=== PATIENT | female | born 2005 | race Caucasian/White ===

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

== ENCOUNTER 2024-01-26 11:36 | Emergency (ER) | payer OTHER, SELFPAY ==
[2024-01-26 11:37] VITALS: BP 118/80; PULSE 100; RESP 16; TEMP 36.4; O2SAT 97
--- NOTE | 2024-01-26 13:00 | PC.NURSE ---
PT WAS SEEN BY STAFF MEMBER WALKING OUT OF THE DEPARTMENT PRIOR TO SEEING THE PROVIDER.
== END 2024-01-26 13:34 | disposition left against medical advice (07) ==
LOC: ANHED 13:30
PROVIDERS: PCP Nurse Practitioner Adult Health
DX: O36.8120 Decreased fetal movements, second trimester, not applicable or unspecified (principal); Z3A.18 18 weeks gestation of pregnancy
CPT/HCPCS: 99199

== ENCOUNTER 2024-02-09 14:04 | Observation (INO) | payer OTHER, SELFPAY ==
[2024-02-09] VITALS (7 sets, daily range): BP systolic 101–114; BP diastolic 59–75; PULSE 85–109; RESP 16; TEMP 36.5–36.6; O2SAT 99; BMI 22.1
[2024-02-09 14:29] LABS: Glucose Point of Care 197 mg/dl (65-105)
[2024-02-09] MEDS: ACETAMINOPHEN 500 MG TABLET 1000 MG PO (15:07)
--- NOTE | 2024-02-09 15:18 | OBADM ---
This patient, Grace Rose, admitted to the OB room OB Post 115 for observation. Patient/family oriented to hospital policies and general routines including ID bracelet, bed and alarms, visiting hours, pain management, procedures, bathroom and other care routines, personal items, smoking policy, room service/diet, and visiting hours. Patient/Family are encouraged to report perceived risks to care and to ask questions if they do not understand what they are told or what they should do. Pt. presents with reports of h/a X2 days and back pain that started at 1200 today. She states she has taken Tylenol 1000mg po at approx. 0800 with no relief. She is an IDDM since 2015 with an insulin pump and has had pump since 2020.
[2024-02-09 15:29] LABS: Appearance Urine Clear (Clear); Bilirubin Urine Negative (Negative); Blood Urine Negative (Negative); Color Urine Yellow (Yellow); Glucose Urine UA 3+ mg/dL (Negative); Ketones Urine Trace mg/dL (Negative); Leukocyte Esterase Ur Negative LEU/UL (Negative); Nitrate Urine Negative (Negative); Protein Urine Negative (Negative); pH Urine 7.5 (5.0-9.0)
--- NOTE | 2024-02-09 15:30 | PC.NURSE ---
1424--FHR 150's with doppler. Uterus soft and non-tender upon palpation, TOCO applied at this time.
[2024-02-09 15:48] LABS: Add Urine Microscopic? NO; Specific Grav Ur 1.037 (1.001-1.035)
--- NOTE | 2024-02-09 16:08 | PC.NURSE ---
1600--Upon speaking with pt., she verbalizes that she has been having headaches since she got and states that the DrSarah says they will probably be throughout her . She states that she was more concerned about the back pain and wanted to make sure it wasn't labor.
--- NOTE | 2024-02-09 16:13 | PC.NURSE ---
1608--Report to Dr. Heaton re: pt. feeling better and that she is ready to go home per pt. made aware of lab results, v.s., and uterine activity. Orders to DC home.
--- NOTE | 2024-02-14 11:54 | PM.OBTRLD ---
OB - Triage/Final Diagnosis Visit Information Comments/Additional reasons for admission: I have assessed the risk for this patient, Grace Rose, and determined that she would benefit from observation care. Evaluation Laboratory results: Laboratory Tests 02/09/24 02/09/24 14:21 15:01 POC Capillary Glucose 197 H Urine Color Yellow Urine Appearance Clear Urine pH 7.5 Ur Specific [place] 1.037 H Urine Protein Negative Urine Glucose (UA) 3+ H Urine Ketones Trace H Ur Blood (Man) Negative Urine Nitrate Negative Urine Bilirubin Negative Urine Urobilinogen 1.0 Leukocyte Esterase Rfl Negative Final Diagnosis (1) Headache: Code(s): R51.9 - Headache, unspecified Status: Acute
== END 2024-02-09 16:25 | disposition home or self-care (01) ==
PROVIDERS: Admitting Provider Obstetrics & Gynecology; Visit Provider Obstetrics & Gynecology
DX: O26.892 Other specified pregnancy related conditions, second trimester (principal); R51.9 Headache, unspecified; Z3A.20 20 weeks gestation of pregnancy
CPT/HCPCS: 81003; 82948; A9270; G0378; G0379

== ENCOUNTER 2024-03-03 07:00 | Observation (INO) | payer OTHER, SELFPAY ==
--- NOTE | ~2024-03-03 | US_ITS ---
US OB limited 03/03/2024 08:38 Indication: Placenta check. Vaginal bleeding. Procedure: High-resolution Limited obstetrical ultrasound Comparison: No prior studies for comparison. Findings: There is a single living intrauterine in breech presentation. heart rate 14 6 BPM. Placenta anterior measuring 3.4 cm to the cervix. Amniotic fluid volume is subjectively normal . The placenta is grossly normal, without suggestion of placenta abruption. However, ultrasound is n ot diagnostic of abruption since acute hemorrhage can be isoechoic to be placenta. Recommend clinica l correlation. Impression: 1: Single living intrauterine in breech presentation. No significant abnormality identified . Reviewed, dictated and finalized at location B. Impression: 1: Single living intrauterine in breech presentation. No significant abnormality identified.
[2024-03-03 07:24] VITALS: BP 119/71; PULSE 97
[2024-03-03 07:30] VITALS: BP 118/73; PULSE 93
[2024-03-03 07:45] VITALS: BP 117/79; PULSE 96
[2024-03-03 07:47] LABS: Glucose Point of Care 189 mg/dl (65-105)
[2024-03-03 08:00] VITALS: BP 109/70; PULSE 93
[2024-03-03 08:26] VITALS: BMI 22.6
--- NOTE | 2024-03-03 08:26 | LDADM ---
This patient, Grace Rose, was admitted to OB Post 116 on 03/03/24 at 07:00. Plans for labor, pain management and were discussed with patient. Patient/family oriented to hospital policies and general routines including ID bracelet, bed and alarms, visiting hours, pain management, procedures, bathroom and other care routines, personal items, smoking policy, room service/diet and guest tray routines, infant security routines, and visiting hours. Patient/Family are encouraged to report perceived risks to care and to ask questions if they do not understand what they are told or what they should do. See OBIX for further documentation. Pt. presents to OB via wheelchair from ED. She is , EGA 23.4 weeks, who presented to ED with abdominal pain. Upon arrival to OB she states she has been having vaginal bleeding since yesterday. She is seen in [facility] for high risk r/t IDDM with insulin pump, who told her to go to the office yesterday. Pt. states she could not get there due to transportation issues. She currently has no bleeding at this time, +FM. She states she vomited this a.m., but hasn't really eaten since Wednesday. She states that when she vomited, it scared her and that's when she decided to come in. EFM X2 applied, will monitor and check blood sugar.
[2024-03-03 08:29] LABS: Appearance Urine Clear (Clear); Bilirubin Urine Negative (Negative); Blood Urine Negative (Negative); Color Urine Yellow (Yellow); Glucose Urine UA 3+ mg/dL (Negative); Ketones Urine Trace mg/dL (Negative); Leukocyte Esterase Ur Negative LEU/UL (Negative); Nitrate Urine Negative (Negative); Protein Urine Negative (Negative); pH Urine 5.5 (5.0-9.0)
[2024-03-03 08:41] LABS: Specific Grav Ur 1.042 (1.001-1.035)
[2024-03-03 08:42] LABS: Add Urine Microscopic? NO
[2024-03-03 08:45] LABS: Amphetamine Screen Urine Negative (Negative); Barbiturate Screen Urine Negative (Negative); Benzodiazepines Screen Urine Negative (Negative); Cannabinoid Screen Urine Negative (Negative); Cocaine Screen Urine Negative (Negative); Methadone Screen Urine Negative (Negative); Opiate Screen Urine Negative (Negative); Phencyclidine Screen Urine Negative (Negative)
--- NOTE | 2024-03-07 12:28 | PM.OBTRLD ---
OB - Triage/Final Diagnosis Visit Information Comments/Additional reasons for admission: I have assessed the risk for this patient, Grace Rose, and determined that she would benefit from observation care. Evaluation Laboratory results: Laboratory Tests 03/03/24 03/03/24 07:39 08:16 POC Capillary Glucose 189 H Urine Color Yellow Urine Appearance Clear Urine pH 5.5 Ur Specific [place] 1.042 H Urine Protein Negative Urine Glucose (UA) 3+ H Urine Ketones Trace H Ur Blood (Man) Negative Urine Nitrate Negative Urine Bilirubin Negative Urine Urobilinogen 1.0 Ur Leukocyte Esterase Negative Urine Opiates Screen Negative Urine Methadone Screen Negative Ur Barbiturates Screen Negative Ur Phencyclidine Scrn Negative Ur Amphetamine Screen Negative U Benzodiazepines Scrn Negative Urine Cocaine Screen Negative U Cannabinoids Screen Negative Blood Type A Positive Antibody Screen Negative Final Diagnosis (1) Spotting affecting : Code(s): O26.859 - Spotting complicating , unspecified trimester Status: Acute
== END 2024-03-03 09:25 | disposition home or self-care (01) ==
PROVIDERS: Admitting Provider Obstetrics & Gynecology; Visit Provider Obstetrics & Gynecology
DX: O26.852 Spotting complicating pregnancy, second trimester (principal); Z3A.23 23 weeks gestation of pregnancy
CPT/HCPCS: 36415; 76815; 80307; 81001; 81003; 82948; 86850; 86900; 86901; G0378; G0379

== ENCOUNTER 2024-03-13 21:51 | Observation (INO) | payer OTHER, SELFPAY ==
--- NOTE | 2024-03-13 21:51 | OBADM ---
This patient, Grace Rose, admitted to the OB room OB Post 115 for observation. Patient/family oriented to hospital policies and general routines including ID bracelet, bed and alarms, visiting hours, pain management, procedures, bathroom and other care routines, personal items, smoking policy, room service/diet, and visiting hours. Patient/Family are encouraged to report perceived risks to care and to ask questions if they do not understand what they are told or what they should do.
[2024-03-13 22:15] VITALS: BMI 22.8
[2024-03-13 22:29] LABS: Appearance Urine Clear (Clear); Bilirubin Urine Negative (Negative); Blood Urine Negative (Negative); Color Urine Yellow (Yellow); Glucose Urine UA 3+ mg/dL (Negative); Ketones Urine Trace mg/dL (Negative); Leukocyte Esterase Ur Negative LEU/UL (Negative); Nitrate Urine Negative (Negative); Protein Urine Negative (Negative)
[2024-03-13 22:40] LABS: Add Urine Microscopic? NO
[2024-03-13 22:52] VITALS: BP 112/67; PULSE 83
[2024-03-13 23:10] LABS: Glucose Point of Care 263 mg/dl (65-105)
--- NOTE | 2024-03-14 11:38 | PM.OBTRLD ---
OB - Triage/Final Diagnosis Visit Information Reason for evaluation: threatened labor Comments/Additional reasons for admission: I have assessed the risk for this patient, Grace Rose, and determined that she would benefit from observation care. Evaluation Laboratory results: Laboratory Tests 03/13/24 03/13/24 22:22 23:05 POC Capillary Glucose 263 H Urine Color Yellow Urine Appearance Clear Urine pH 6.0 Ur Specific [place] 1.020 Urine Protein Negative Urine Glucose (UA) 3+ H Urine Ketones Trace H Ur Blood (Man) Negative Urine Nitrate Negative Urine Bilirubin Negative Urine Urobilinogen 1.0 Ur Leukocyte Esterase Negative Vital signs: Vital Signs - 24 hr 03/13/24 22:52 03/13/24 22:15 Pulse Rate 83 Blood Pressure 112/67 Oxygen Delivery Room Air
== END 2024-03-13 23:27 | disposition home or self-care (01) ==
PROVIDERS: Advanced Practice Midwife; Obstetrics & Gynecology Gynecology; Admitting Provider Obstetrics & Gynecology; Visit Provider Obstetrics & Gynecology
DX: O47.02 False labor before 37 completed weeks of gestation, second trimester (principal); Z3A.25 25 weeks gestation of pregnancy
CPT/HCPCS: 81003; 82948; 87086; 87088; G0378; G0379

== ENCOUNTER 2024-04-04 07:50 | Observation (INO) | payer OTHER, SELFPAY ==
[2024-04-04] VITALS (13 sets, daily range): BP systolic 114–125; BP diastolic 74–83; PULSE 87–107; BMI 23.1
[2024-04-04 08:41] LABS: Glucose Point of Care 271 mg/dl (65-105)
[2024-04-04] MEDS: INSULIN ASPART (*BKC) 100 UNITS/ML SUB-Q (08:41)
--- NOTE | 2024-04-04 08:53 | OBADM ---
This patient, Grace Rose, admitted to the OB room OB Post 115 for observation. Patient/family oriented to hospital policies and general routines including ID bracelet, bed and alarms, visiting hours, pain management, procedures, bathroom and other care routines, personal items, smoking policy, room service/diet, and visiting hours. Patient/Family are encouraged to report perceived risks to care and to ask questions if they do not understand what they are told or what they should do. Pt. presents as walk-in who states that she fell down 6 steps today at approx. 0700 this a.m. She states she hit her abdomen on one of the steps. She denies vaginal bleeding and states she has felt the baby move since the fall.
[2024-04-04 09:47] LABS: Glucose Point of Care 219 mg/dl (65-105)
[2024-04-04 10:48] LABS: Glucose Point of Care 190 mg/dl (65-105)
--- NOTE | 2024-04-18 12:29 | PM.OBTRLD ---
OB - Triage/Final Diagnosis Visit Information Comments/Additional reasons for admission: I have assessed the risk for this patient, Grace Rose, and determined that she would benefit from observation care. Evaluation Laboratory results: Laboratory Tests 04/04/24 04/04/24 04/04/24 08:11 09:42 10:44 POC Capillary Glucose 271 H 219 H 190 H Final Diagnosis (1) Fall: Code(s): W19.XXXA - Unspecified fall, initial encounter Status: Acute
== END 2024-04-04 11:05 | disposition home or self-care (01) ==
PROVIDERS: Admitting Provider Obstetrics & Gynecology; Visit Provider Obstetrics & Gynecology
DX: Z04.3 Encounter for examination and observation following other accident (principal); O24.414 Gestational diabetes mellitus in pregnancy, insulin controlled; Z3A.28 28 weeks gestation of pregnancy; W19.XXXA Unspecified fall, initial encounter
CPT/HCPCS: 82948; G0378; G0379; J1815

== ENCOUNTER 2024-04-17 11:46 | Observation (INO) | payer OTHER, SELFPAY ==
[2024-04-17 12:14] VITALS: BP 124/74; PULSE 87
[2024-04-17 12:30] VITALS: BP 120/81; PULSE 121; TEMP 37.1
[2024-04-17 12:37] LABS: Glucose Point of Care 172 mg/dl (65-105)
[2024-04-17 12:45] VITALS: BP 119/79; PULSE 102
[2024-04-17 12:48] VITALS: BMI 16.0
--- NOTE | 2024-04-17 12:48 | OBADM ---
This patient, Grace Rose, admitted to the OB room OB Post 116 for observation. Patient/family oriented to hospital policies and general routines including ID bracelet, bed and alarms, visiting hours, pain management, procedures, bathroom and other care routines, personal items, smoking policy, room service/diet, and visiting hours. Patient/Family are encouraged to report perceived risks to care and to ask questions if they do not understand what they are told or what they should do.
[2024-04-17 12:52] LABS: Appearance Urine Clear (Clear); Bacteria Urine 1+ /hpf; Bilirubin Urine Negative (Negative); Blood Urine Negative (Negative); Color Urine Yellow (Yellow); Glucose Urine UA 2+ mg/dL (Negative); Ketones Urine Trace mg/dL (Negative); Leukocyte Esterase Ur Trace LEU/UL (Negative); Nitrate Urine Negative (Negative); Non Pathogenic Casts 0-2; Protein Urine Negative (Negative); RBC Urine 0-2 /hpf (0-2); Specific Grav Ur 1.013 (1.001-1.035); Squamous Epithelial Cell Urine Moderate /hpf (Few); Urobilinogen Urine 0.2 mg/dL (<2.0)
[2024-04-17 12:55] LABS: Add Urine Microscopic? YES
[2024-04-17 13:00] VITALS: BP 117/78; PULSE 100
[2024-04-17 13:15] VITALS: BP 128/78; PULSE 90
[2024-04-17 13:16] VITALS: BP 128/78; PULSE 90
--- NOTE | 2024-05-09 07:24 | PM.OBTRLD ---
OB - Triage/Final Diagnosis Visit Information Comments/Additional reasons for admission: I have assessed the risk for this patient, Grace Rose, and determined that she would benefit from observation care. Evaluation Laboratory results: Laboratory Tests 04/17/24 04/17/24 12:31 12:42 POC Capillary Glucose 172 H Urine Color Yellow Urine Appearance Clear Urine pH 6.0 Ur Specific [place] 1.013 Urine Protein Negative Urine Glucose (UA) 2+ H Urine Ketones Trace H Ur Blood (Man) Negative Urine Nitrate Negative Urine Bilirubin Negative Urine Urobilinogen 0.2 Leukocyte Esterase Rfl Trace H Urine RBC 0-2 Urine WBC 6-10 H Ur Squamous Epith Cells Moderate Urine Bacteria 1+ H Urine Casts 0-2 Final Diagnosis (1) Vaginal bleeding during : Code(s): O46.90 - Antepartum hemorrhage, unspecified, unspecified trimester Status: Acute
== END 2024-04-17 13:35 | disposition home or self-care (01) ==
PROVIDERS: Admitting Provider Obstetrics & Gynecology; Visit Provider Obstetrics & Gynecology
DX: O46.90 Antepartum hemorrhage, unspecified, unspecified trimester (principal)
CPT/HCPCS: 81001; 82948; 87086; 87088; G0378; G0379

== ENCOUNTER 2024-05-04 06:01 | Observation (INO) | payer OTHER, SELFPAY ==
[2024-05-04] VITALS (7 sets, daily range): BP systolic 123–128; BP diastolic 81–90; PULSE 92–127; RESP 16; TEMP 37.7; BMI 23.6
--- NOTE | 2024-05-04 06:38 | OBADM ---
This patient, Grace Rose, admitted to the OB room 116 for observation. Patient/family oriented to hospital policies and general routines including ID bracelet, bed and alarms, visiting hours, pain management, procedures, bathroom and other care routines, personal items, smoking policy, room service/diet, and visiting hours. Patient/Family are encouraged to report perceived risks to care and to ask questions if they do not understand what they are told or what they should do.
[2024-05-04 07:14] LABS: Appearance Urine Cloudy (Clear); Bilirubin Urine Negative (Negative); Blood Urine Negative (Negative); Color Urine Yellow (Yellow); Glucose Urine UA 1+ mg/dL (Negative); Ketones Urine Negative (Negative); Leukocyte Esterase Ur 1+ LEU/UL (Negative); Nitrate Urine Negative (Negative); Protein Urine Negative (Negative); Specific Grav Ur 1.013 (1.001-1.035); Urobilinogen Urine 0.2 mg/dL (<2.0); pH Urine 6.5 (5.0-9.0)
[2024-05-04 07:15] LABS: Add Urine Microscopic? YES; Bacteria Urine 1+ /hpf; Non Pathogenic Casts 0-2; RBC Urine 0-2 /hpf (0-2); Squamous Epithelial Cell Urine Many /hpf (Few)
[2024-05-04] MEDS: NIFEdipine 10 MG CAPSULE PO (07:33)
[2024-05-04 07:50] LABS: OBXCEM ROM Plus Negative
[2024-05-04 07:56] LABS: Fetal Fibronectin Negative
--- NOTE | 2024-05-05 16:20 | PM.OBTRLD ---
OB - Triage/Final Diagnosis Visit Information Date of evaluation: 05/04/24 Reason for evaluation: threatened labor Comments/Additional reasons for admission: I have assessed the risk for this patient, Grace Rose, and determined that she would benefit from observation care. Evaluation Laboratory results: Laboratory Tests 05/04/24 05/04/24 05/04/24 06:56 06:58 07:21 Urine Color Yellow Urine Appearance Cloudy H Urine pH 6.5 Ur Specific [place] 1.013 Urine Protein Negative Urine Glucose (UA) 1+ H Urine Ketones Negative Ur Blood (Man) Negative Urine Nitrate Negative Urine Bilirubin Negative Urine Urobilinogen 0.2 Leukocyte Esterase Rfl 1+ H Urine RBC 0-2 Urine WBC 11-20 H Ur Squamous Epith Cells Many H Urine Bacteria 1+ H Urine Casts 0-2 Membranes Rupture Rom plus negative Membranes Rup Com Yes Fibronectin Negative
== END 2024-05-04 09:19 | disposition home or self-care (01) ==
PROVIDERS: Admitting Provider Obstetrics & Gynecology; Visit Provider Obstetrics & Gynecology
DX: O47.9 False labor, unspecified (principal)
CPT/HCPCS: 81001; 82731; 84112; 87086; 87088; A9270; G0378; G0379

== ENCOUNTER 2024-06-30 17:01 | Emergency (ER) | payer OTHER, SELFPAY ==
--- NOTE | ~2024-06-30 | CT_ITS ---
CT abdomen pelvis w con Ordering provider: Soraya Dwyer PA-C History: 19 years Female with . lower abd pain, swelling around scar . Comparison: None. Technique: CT abdomen and pelvis with IV and without oral contrast. Automated exposure control and it erative reconstruction technique were employed. The dose-length product was 189.62 mGy-cm. Findings: VISUALIZED LOWER CHEST: Normal. UPPER ABDOMINAL ORGANS: Liver: Normal. Gallbladder: Normal. Spleen: Normal. Stomach/duodenum: Normal. Pancreas: Normal. Adrenals: Normal. Kidneys: Stone is seen in the left kidney midpole. PELVIC ORGANS: The bladder is normal. Fluid is seen in the uterine cavity. Thickened wall of the te-moak teresa. No definite collection seen between the bladder and the uterus. BOWEL AND MESENTERY: Colon: No evidence of diverticulitis. The small bowel is seen in the right side of the abdomen with n o definite: Loops in the area which may indicate cecal abnormality. No obstruction is seen. Appendix is not well demonstrated. Small Bowel: Normal. No obstruction. Peritoneum/mesentery: No free air or free fluid. No mesenteric lymphadenopathy. RETROPERITONEUM: Normal aorta. The celiac artery is not demonstrated. No retroperitoneal lymphadenop athy. MUSCULOSKELETAL: Superficial soft tissues: Minimal fat stranding seen in the lower abdominal wall subcutaneous tissue. Inflammatory changes cannot be excluded but this may be postoperative. Otherwise, The superficial so ft tissues are normal. Bones: Normal spine. IMPRESSION: 1. No definite collection seen in the area of the lower segment of the uterus. 2. 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 3. Minimal fat stranding in the area of the which is most likely postoperative follow-up a dvised Reviewed, dictated and finalized at location A. IMPRESSION: 1. No definite collection seen in the area of the lower segment of the uterus. 2. 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 3. Minimal fat stranding in the area of the which is most likely pos toperative follow-up advised
[2024-06-30 17:03] VITALS: BP 120/78; PULSE 110; RESP 18; TEMP 36.9; O2SAT 100
--- NOTE | 2024-06-30 18:00 | ED_ITS ---
HPI - Wound/Laceration General Chief Complaint: Wound/Laceration Stated Complaint: pain, swelling to c section Time Seen by Provider: 06/30/24 17:14 Source: patient Mode of arrival: ambulatory Limitations: no limitations History of Present Illness HPI narrative: Patient is a 19-year-old female, with PMH of IDDM, who presents the ED with report of pain and swelling throughout her lower abdomen. Patient underwent emergency at [facility] on 06/02 from what she describes as abnormal labor progression after induction. Over the past couple of days, she has been having pain throughout her left lower abdomen around the site of her scar. Today, she began noticing an area of swelling along the incision site. She contacted her OBGYN was referred to the ED for further evaluation. She is unsure of her OBGYN's name. Patient denies issues with nausea, vomiting, diarrhea, constipation, fevers, dysuria, hematuria. She is still having slight vaginal bleeding. Related Data Home Medications Medication Instructions Recorded Confirmed glucagon 3 mg/actuation nasal 3 mg intranasal ONCE 06/21/23 05/04/24 spray (Baqsimi) acetaminophen 500 mg tablet 1,000 mg PO Q6H PRN Pain 05/04/24 05/04/24 (Tylenol Extra Strength) famotidine 20 mg tablet 20 mg PO BID PRN Heartburn 05/04/24 05/04/24 Allergies Allergy/AdvReac Type Severity Reaction Status Date / Time peanut Allergy Unknown Unknown Verified 01/26/24 12:00 diphenhydramine Allergy Swelling Verified 05/04/24 08:56 [From Benadryl] of Lip/Tongue/Throat Review of Systems Review of Systems: All systems reviewed & are unremarkable except as noted in HPI. All systems reviewed & are unremarkable except as noted in HPI and below PMFSH Past Medical History Medical History Hyperlipidemia Uncontrolled diabetes mellitus Surgical History Surgical History H/O hand surgery History of dilatation and curettage Hx of tonsillectomy Family History Family History Father Asthma Hypertension Depression History of ETOH abuse Mother Diabetes mellitus Carcinoma of colon Hypertension Depression Sibling Asthma Grandparent Asthma Grandparent Asthma Cancer Hypertension Depression Heart disease Social History Social History Smoking status: Current every day smoker Tobacco type: e-cigarettes/vaping Do You Feel Safe in your Home?: Yes Lack of Transportation: No Lack of Food: Never True Current Housing: I Have Housing Concerned About Future Housing: No Difficulty Paying Gas/Electric Bills: No Difficulty Paying for Meds: No Currently Unemployed: No Education: High School Diploma/GED Difficulty w/ Childcare or Family Care: No Exam Narrative: GENERAL: Well appearing, thin, non-toxic, in no acute distress. HEAD: Normocephalic, atraumatic. ENT: Poor dentition. RESPIRATORY: Airway patent, respirations nonlabored. Clear to auscultation bilaterally, no rales, rhonchi, wheezing. CARDIOVASCULAR: Regular rate and rhythm without murmurs, rubs, or gallops. ABDOMINAL: Mild tenderness to palpation throughout left lower abdomen, mild distention but still soft. Normoactive BS. incision site is intact, no evidence of dehiscence, drainage, surrounding erythema or warmth. Mild area of fullness along left lateral incision site which is focally tender. MUSCULOSKELETAL: Moves all extremities. No gross deformities. SKIN: Warm, dry, normal color. NEURO: A&O X3. Speech clear. PSYCHIATRIC: Appropriate mood and affect. Normal interaction. Course Vital Signs Vital signs: Vital Signs Temperature 98.4 F 06/30/24 17:03 Pulse Rate 110 H 06/30/24 17:03 Respiratory Rate 18 06/30/24 17:03 Blood Pressure 120/78 06/30/24 17:03 Pulse Oximetry 100 06/30/24 17:03 Oxygen Delivery Room Air 06/30/24 17:03 Temperature 98.4 F 06/30/24 17:03 Pulse Rate 110 H 06/30/24 17:03 Respiratory Rate 18 06/30/24 17:03 Blood Pressure 120/78 06/30/24 17:03 Pulse Oximetry 100 06/30/24 17:03 Oxygen Delivery Room Air 06/30/24 17:03 MDM - Wound/Laceration MDM Narrative Medical decision making narrative: Patient presented to ED with lower abdominal pain and swelling noted along the incision site, performed at outside hospital. Patient unsure of OBGYN name. She is mildly tachycardic upon arrival. Afebrile. Laboratory studies were obtained and fairly unremarkable. Cbc without leukocytosis. Hemoglobin stable at 11.8. CMP unremarkable aside from elevated blood glucose at 388. No anion gap. Normal bicarb. No evidence of DKA. Patient is a known diabetic. Hx of poorly controlled DM, on insulin therapy. A1c ordered and elevated to 8.4%. CT abd/pelvis obtained and without evidence of obvious abscess. Did show fat stranding of abdominal wall, which may be postsurgical. Spoke with Dr. Benites, REFERRAL AND INFORMATION AIDE registered nurse bone marrow transplant at [facility], recommended transfer for further eval as patient has not f/u since her surgery, sugar control, and to evaluate incision for potential infection. Recommended abx for potentially abd wall cellulitis. Otherwise will have map editor reach out to patient to make sooner f/u appointment. She is supposed to f/u in 10 days. Prior to receiving results and recommendations by OBGYN, patient decided to leave facility AMA. Did not want to wait for results. Stated that hospitals made her anxious. AMA paperwork was signed by ED nurse. I did contact patient via phone after she left to discuss OBGYN recommendations for transfer and abx, patient stated she will just go to [place]. Abx were sent to pharmacy. I did update Dr. Benites of this. Return precautions were discussed. Medical Records Attestation: I reviewed the patient's medical records. Lab Data Attestation: I reviewed the patient's lab results. 06/30/24 18:22 06/30/24 18:27 Labs: Lab Results 06/30/24 06/30/24 06/30/24 Range/Units 18:21 18:22 18:27 WBC 5.6 (4.5-10.0) K/mm3 RBC 4.48 (4.2-5.4) M/mm3 Hgb 11.8 L D (12.0-15.0) g/dL Hct 36.7 L (37.0-47.0) % MCV 81.9 (80-100) fl MCH 26.3 (26-34) pg MCHC 32.2 (32-36) g/dl RDW 13.1 (11.5-14.5) % Plt Count 320 (150-375) k/mm3 MPV 10.1 (7.4-10.4) fl Immature Gran % (Auto) 0.4 (0-0.5) % Neut % (Auto) 47.5 (45.5-73.1) % Lymph % (Auto) 39.0 (18.3-44.2) % [place] % (Auto) 8.6 H (2.6-8.5) % Eos % (Auto) 3.8 (0-4.4) % Baso % (Auto) 0.7 (0.2-1.2) % Lymph # (Auto) 2.17 (0.9-3.2) K/mm3 [place] # (Auto) 0.5 (0.1-0.6) K/mm3 Eos # (Auto) 0.2 (0-0.3) K/mm3 Baso # (Auto) 0.0 (0.0-0.1) K/mm3 Abs Immat Gran (auto) 0.02 (0.00-0.031) K/mm3 Absolute Neuts (auto) 2.7 (1.3-6.7) K/mm3 Absolute Nucleated RBC 0.000 (0.0-0.012) K/mm3 Nucleated RBC % 0.0 (0.0-0.2) % Sodium 136 L (137-145) mmol/L Potassium 4.3 (3.4-5.0) mmol/L Chloride 99 (98-107) mmol/L Carbon Dioxide 25 (22-30) mmol/L Anion Gap 12 (4-12) mmol/L BUN 20 H (7-17) mg/dL Creatinine 0.50 L 0.50 L (0.7-1.0) mg/dL Estim Creat Clear Calc 103 103 ml/min Estimated GFR > 60 > 60 (59 - ) Glucose 388 H (65-110) mg/dL Hemoglobin A1c 8.4 H (<5.7) % Lactic Acid 1.9 (0.7-2.0) mmol/L Calcium 9.1 (8.4-10.2) mg/dL Total Bilirubin 0.4 (0.2-1.3) mg/dL AST 15 (14-36) U/L ALT 13 (6-35) U/L Alkaline Phosphatase 86 (38-126) U/L Total Protein 8.0 (6.3-8.2) g/dL Albumin 4.4 (3.5-5.1) g/dL Imaging Data Attestation: I personally reviewed and interpreted this imaging study as follows: Radiologist's impression: ITS Impressions Abdomen/Pelvis CT 06/30/24 18:40 IMPRESSION: 1. No definite collection seen in the area of the lower segment of the uterus. 2. 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 3. Minimal fat stranding in the area of the which is most likely postoperative follow-up advised Discharge Plan Discharge Clinical Impression: Left lower quadrant abdominal pain, Uncontrolled diabetes mellitus, H/O tanisha an section Patient Disposition: Left Against Medical Advice Condition: Guarded Prognosis Prescriptions: New doxycycline monohydrate 100 mg tablet 100 mg PO BID 7 Days Qty: 14 0RF No Action Baqsimi 3 mg/actuation spray,non-aerosol 3 mg intranasal ONCE Rx Instructions: as a single dose (DME) Accu-Chek Guide test strips Strip See Rx Instructions .ROUTE .MEDSUPPLY Qty: 400 12RF Rx Instructions: 4 times a day (DME) pen needle, diabetic [Comfort EZ Pen [place]] 33 gauge x 1/4 needle See Rx Instructions .Route Qty: 100 12RF Rx Instructions: as directed (DME) Dexcom G6 Sensor Device See Rx Instructions .Route Qty: 3 12RF Rx Instructions: every 10 days acetaminophen [Tylenol Extra Strength] 500 mg Tablet 1,000 mg PO Q6H PRN (Reason: Pain) famotidine 20 mg tablet 20 mg PO BID PRN (Reason: Heartburn) PNV [id number] 90 mg iron- 1 mg-200 mg capsule 1 cap PO DAILY Qty: 90 3RF (DME) Dexcom G6 Transmitter Device See Rx Instructions .Route Qty: 1 1RF Rx Instructions: As directed (DME) Dexcom G6 Metal Tile Setter Misc See Rx Instructions .Route Qty: 1 0RF Rx Instructions: As directed insulin lispro [Humalog U-100 Insulin] 100 unit/mL solution 1 sliding scale dose subcut USEASDIRECTD MDD 50 Qty: 40 0RF Rx Instructions: for insulin pump Follow-up/Referrals: PHYSICIAN,NEWS COPY EDITOR [Non-Staff] -
[2024-06-30 18:30] LABS: Estimated CRCL calculation 103 ml/min; Estimated Glomerular Filt Rate > 60
[2024-06-30 18:41] LABS: Basophils Percent Auto 0.7 % (0.2-1.2); Eosinophils Absolute Auto 0.2 K/mm3 (0-0.3); Eosinophils Percent Auto 3.8 % (0-4.4); Hematocrit 36.7 % (37.0-47.0); Hemoglobin 11.8 g/dL (12.0-15.0); Immature Granulocyte Absolute 0.02 K/mm3 (0.00-0.031); Immature Granulocyte Percent A 0.4 % (0-0.5); Lymphocytes Absolute Auto 2.17 K/mm3 (0.9-3.2); Mean Corpuscular HGB Conc 32.2 g/dl (32-36); Mean Corpuscular Hemoglobin 26.3 pg (26-34); Mean Corpuscular Volume 81.9 fl (80-100); Mean Platelet Volume 10.1 fl (7.4-10.4); Monocytes Absolute Auto 0.5 K/mm3 (0.1-0.6); Monocytes Percent Auto 8.6 % (2.6-8.5); Neutrophils Absolute Auto 2.7 K/mm3 (1.3-6.7); Neutrophils Percent Auto 47.5 % (45.5-73.1); Platelet Count Result 320 k/mm3 (150-375); Red Blood Count 4.48 M/mm3 (4.2-5.4); Red Cell Distribution Width 13.1 % (11.5-14.5); White Blood Count 5.6 K/mm3 (4.5-10.0)
[2024-06-30 18:51] LABS: Alanine Aminotransferase 13 U/L (6-35); Albumin Level 4.4 g/dL (3.5-5.1); Alkaline Phosphatase 86 U/L (38-126); Anion Gap 12 mmol/L (4-12); Aspartate Amino Transferase 15 U/L (14-36); Bilirubin,Total 0.4 mg/dL (0.2-1.3); Blood Urea Nitrogen 20 mg/dL (7-17); Calcium 9.1 mg/dL (8.4-10.2); Carbon Dioxide 25 mmol/L (22-30); Chloride 99 mmol/L (98-107); Estimated CRCL calculation 103 ml/min; Estimated Glomerular Filt Rate > 60; Glucose 388 mg/dL (65-110); Lactic Acid Reflex 1.9 mmol/L (0.7-2.0); Potassium 4.3 mmol/L (3.4-5.0); Sodium 136 mmol/L (137-145)
[2024-06-30 19:18] LABS: Hemoglobin A1C 8.4 % (<5.7)
== END 2024-06-30 19:37 | disposition left against medical advice (07) ==
PROVIDERS: Emergency Provider Physician Assistant; PCP Nurse Practitioner Adult Health
DX: O90.89 Other complications of the puerperium, not elsewhere classified (principal); R10.32 Left lower quadrant pain; O24.03 Pre-existing type 1 diabetes mellitus, in the puerperium; E10.65 Type 1 diabetes mellitus with hyperglycemia; O99.285 Endocrine, nutritional and metabolic diseases complicating the puerperium; E78.5 Hyperlipidemia, unspecified; O99.335 Smoking (tobacco) complicating the puerperium; F17.290 Nicotine dependence, other tobacco product, uncomplicated; Z96.41 Presence of insulin pump (external) (internal); Z79.4 Long term (current) use of insulin
CPT/HCPCS: 36415; 74177; 80053; 83036; 83605; 85025; 99284; Q9967

== ENCOUNTER 2024-07-19 15:09 | Emergency (ER) | payer OTHER, SELFPAY ==
[2024-07-19 15:13] VITALS: BP 100/73; PULSE 92; RESP 16; TEMP 36.6; O2SAT 99
== END 2024-07-19 17:56 | disposition left against medical advice (07) ==
LOC: ANHED 17:51
PROVIDERS: Emergency Provider Registered Nurse; PCP Nurse Practitioner Adult Health
DX: R10.9 Unspecified abdominal pain (principal)
CPT/HCPCS: 99199

== ENCOUNTER 2024-08-03 16:28 | Emergency (ER) | payer OTHER, SELFPAY ==
--- NOTE | 2024-08-03 16:45 | ED_ITS ---
HPI - URI/Sore Throat General Chief Complaint: Upper Respiratory Infection Stated Complaint: coughing (daughter has whooping cough) Time Seen by Provider: 08/03/24 16:49 History of Present Illness HPI Narrative: 19-year-old female presents to the emergency department for pertusses post exposure prophylaxis. Patient has a 2-month-old baby who went to the sports teacher for cough and was diagnosed with pertussis. The parents were advised to be evaluated and treated prophylactically for pertussis. The patient has no symptoms. She denies cough or congestion, fever. She is not . Related Data Home Medications Medication Instructions Recorded Confirmed glucagon 3 mg/actuation nasal 3 mg intranasal ONCE 06/21/23 05/04/24 spray (Baqsimi) acetaminophen 500 mg tablet 1,000 mg PO Q6H PRN Pain 05/04/24 05/04/24 (Tylenol Extra Strength) famotidine 20 mg tablet 20 mg PO BID PRN Heartburn 05/04/24 05/04/24 Allergies Allergy/AdvReac Type Severity Reaction Status Date / Time peanut Allergy Unknown Unknown Verified 01/26/24 12:00 diphenhydramine Allergy Swelling Verified 05/04/24 08:56 [From Benadryl] of Lip/Tongue/Throat Review of Systems Review of Systems: All systems reviewed & are unremarkable except as noted in HPI and below PMFSH Past Medical History Medical History Hyperlipidemia Uncontrolled diabetes mellitus Surgical History Surgical History H/O hand surgery History of dilatation and curettage Hx of tonsillectomy Family History Family History Father Asthma Hypertension Depression History of ETOH abuse Mother Diabetes mellitus Carcinoma of colon Hypertension Depression Sibling Asthma Grandparent Asthma Grandparent Asthma Cancer Hypertension Depression Heart disease Social History Social History Smoking status: Current every day smoker Tobacco type: e-cigarettes/vaping Do You Feel Safe in your Home?: Yes Lack of Transportation: No Lack of Food: Never True Current Housing: I Have Housing Concerned About Future Housing: No Difficulty Paying Gas/Electric Bills: No Difficulty Paying for Meds: No Currently Unemployed: No Education: High School Diploma/GED Difficulty w/ Childcare or Family Care: No Exam Narrative: GENERAL: Well-appearing, well-nourished, and in no acute distress. HEAD: Normocephalic, atraumatic. EYES: EOMI. ENT: Nares clear, no rhinorrhea or epistaxis. Mucous membranes moist. NECK: Supple. CHEST: Clear to auscultation. No respiratory distress. HEART: Regular rate and rhythm. No murmur heard. Normal peripheral pulses. ABDOMEN: Soft, nontender, nondistended, normal active bowel sounds. EXTREMITIES: Normal range of motion. No edema. SKIN: Warm, dry, no rash. NEURO: No focal deficits. Alert and oriented x3 Course Vital Signs Vital signs: Vital Signs Temperature 98 F 08/03/24 17:03 Pulse Rate 99 08/03/24 17:03 Respiratory Rate 18 08/03/24 17:03 Blood Pressure 118/68 08/03/24 17:03 Pulse Oximetry 98 08/03/24 17:03 Oxygen Delivery Room Air 08/03/24 17:03 Temperature 99 F 08/03/24 17:22 Pulse Rate 70 08/03/24 17:22 Respiratory Rate 16 08/03/24 17:22 Blood Pressure 132/66 08/03/24 17:22 Pulse Oximetry 98 08/03/24 17:22 Oxygen Delivery Room Air 08/03/24 17:03 MDM - URI/Sore Throat MDM Narrative Medical decision making narrative: 19-year-old female presents emergency department for pertussis post exposure prophylaxis. Patient is to have told baby was recently diagnosed with pertusses by the sports teacher. The patient has no symptoms. She has no cough, congestion, fever. Plan to treat for pertussis post exposure prophylaxis. Patient presented with her boyfriend who has cough and congestion. I was waiting on his results to return when both the patient and the boyfriend left the department prior to further evaluation and treatment. Discharge Plan Discharge Clinical Impression: Pertussis exposure Patient Disposition: Elopement After Seen by Prov Condition: Stable Prescriptions: No Action Baqsimi 3 mg/actuation spray,non-aerosol 3 mg intranasal ONCE Rx Instructions: as a single dose (DME) Accu-Chek Guide test strips Strip See Rx Instructions .ROUTE .MEDSUPPLY Qty: 400 12RF Rx Instructions: 4 times a day (DME) pen needle, diabetic [Comfort EZ Pen [place]] 33 gauge x 1/4 needle See Rx Instructions .Route Qty: 100 12RF Rx Instructions: as directed (DME) Dexcom G6 Sensor Device See Rx Instructions .Route Qty: 3 12RF Rx Instructions: every 10 days doxycycline monohydrate 100 mg tablet 100 mg PO BID 7 Days Qty: 14 0RF acetaminophen [Tylenol Extra Strength] 500 mg Tablet 1,000 mg PO Q6H PRN (Reason: Pain) famotidine 20 mg tablet 20 mg PO BID PRN (Reason: Heartburn) PNV [id number] 90 mg iron- 1 mg-200 mg capsule 1 cap PO DAILY Qty: 90 3RF (DME) Dexcom G6 Transmitter Device See Rx Instructions .Route Qty: 1 1RF Rx Instructions: As directed (DME) Dexcom G6 Certified Surgical Technologist Misc See Rx Instructions .Route Qty: 1 0RF Rx Instructions: As directed insulin lispro [Humalog U-100 Insulin] 100 unit/mL solution 1 sliding scale dose subcut USEASDIRECTD MDD 50 Qty: 40 0RF Rx Instructions: for insulin pump Follow-up/Referrals: Pebbles Reed APRN [Primary Care Provider] -
[2024-08-03 17:03] VITALS: BP 118/68; PULSE 99; RESP 18; TEMP 36.6; O2SAT 98
[2024-08-03 17:22] VITALS: BP 132/66; PULSE 70; RESP 16; TEMP 37.2; O2SAT 98
--- NOTE | 2024-08-03 17:49 | PC.NURSE ---
Pt declined to be seen due to wait time, pt ambulated out in NAD
== END 2024-08-03 18:35 | disposition left against medical advice (07) ==
PROVIDERS: Emergency Provider Physician Assistant; PCP Nurse Practitioner Adult Health
DX: R05.9 Cough, unspecified (principal); Z20.1 Contact with and (suspected) exposure to tuberculosis; E78.5 Hyperlipidemia, unspecified; F17.290 Nicotine dependence, other tobacco product, uncomplicated
CPT/HCPCS: 99281

== ENCOUNTER 2024-11-02 11:09 | Emergency (ER) | payer OTHER, SELFPAY ==
[2024-11-02 11:18] VITALS: BP 117/77; PULSE 130; RESP 20; TEMP 36.7; O2SAT 100
--- OUTSIDE RECORDS SUMMARY | 2024-11-02 11:21 | XMS_ITS | Referral Summary ---
Author Organization [facility] Health Address [address] [place] [address] Care Team Providers Care Sandwich Wrapper Name Role Phone Unavailable Primary Care Provider Unavailabl e Source Comments [facility],non-owned Affiliates and Associated Physician Practices is amultiple site organization consisting of ambulatory clinics and hospital sitesin [place], [place], [place] and [place]. This disclosure is being madepursuant to the Care Everywhere program and may not contain all information available regarding this patient. Last updated 18.[facility] Nomanini Encounters Date Type Department Care Team Description 08/24/2024 Travel 08/24/2024 9:08 AM FINANCIAL PLANNING ASSISTANT - 08/24/2024 11:59 PM FINANCIAL PLANNING ASSISTANT Hospital Encounter [facility] MATERNAL/ EVALUATION UNIT [address] [place] [address] [address] [place] [address] Kishore Small DO Discharge Disposition: Home or Self Care 08/24/2024 9:08 AM FINANCIAL PLANNING ASSISTANT - 08/24/2024 11:59 PM FINANCIAL PLANNING ASSISTANT Hospital Encounter [facility] MATERNAL/ EVALUATION UNIT [address] [place] [address] Juan Pablo Belcher MD Polcaro, Joseph, Discharge Disposition: Home or Self Care 08/15/2024 Telephone [facility] MATERNAL/ EVALUATION UNIT [address] [place] [address] Sakina Garza RN MEDICATION REFILL 08/15/2024 Telephone [facility] MATERNAL/ EVALUATION UNIT [address] [place] [address] Linda Lopez Medication Request 08/14/2024 Refill [facility] MATERNAL/ EVALUATION UNIT [address] [place] [address] Sidney Gray MD Refill Request 08/14/2024 Refill [facility] MATERNAL/ EVALUATION UNIT [address] [place] [address] Quirino Jhaveri MD Refill Request from Last 3 Months Allergies Active Allergy Reactions Criticality Noted Date Comments Diphenhydramine Swelling Medium 04/23/2023 Lips swell Garlic Rash High 03/06/2020 Mushroom Extract Complex Angioedema High 03/06/2020 Swelling to lips and mouth after eating mushrooms Medications * Be aware that medications may not be up to date on this document. Alwaysverify current medications with the patient. Medication Sig Dispensed Refills Start Date End Date Status Continuous Blood Gluc Transmit (Dexcom G6 Transmitter) MISC as directed 09/28/2023 Active insulin lispro (HumaLOG) 100 UNIT/ML vial For continuous use in insulin pump. Total max daily dose = 166 units/day. 50 mL 5 12/01/2023 Active aspirin EC (Ecotrin) 81 MG tablet Take 2 (two) tablets by mouth once daily 60 tablet 6 12/01/2023 Active Additional Information Patient not taking.Informant: Patient, Reported on 08/24/2024 docusate sodium (Colace) 100 MG capsuleIndications :Constipation Take 1 (one) capsule by mouth 2 times daily Reasons: Constipation 60 capsule 1 12/03/2023 Active Additional Information Patient not taking.Reported on 08/24/2024 Blood Glucose Monitoring Suppl (OneTouch Verio) w/Device KITIndications:Typ e 1 diabetes mellitus affecting in second trimester, antepartum ([facility]) Use 1 Each as directed 1 kit 12/29/2023 Active blood glucose (OneTouch Verio) test stripIndications:T ype 1 diabetes mellitus affecting in second trimester, antepartum ([facility]) Please supply strips to match meter to calibrate dexcom 100 strip 5 12/29/2023 Active Lancets (ONETOUCH DELICA PLUS 33G EXTRA FINE LANCET)Indications :Type 1 diabetes mellitus affecting in second trimester, antepartum ([facility]) Please supply lancets to match lancing device best covered by insurance to calibrate dexcom 100 Each 5 12/29/2023 Active riboflavin 400 MG capsule Take 1 (one) capsule by mouth once daily 30 capsule 4 01/10/2024 Active Additional Information Patient not taking.Reason: Other, Reported on 05/31/2024 plus iron (Natatab) 29-1 MG tabletIndications: Take 1 (one) tablet by mouth once daily Reasons: 30 tablet 11 02/02/2024 Active benzocaine, dental, (Orajel Maximum Strength) 20 % liquidIndications: Poor dentition Take by mouth 4 times daily as needed for Pain 9 mL 1 03/01/2024 Active Additional Information Patient not taking.Informant: Patient, Reported on 08/24/2024 insulin glargine (Lantus/Semglee) 100 units/mL pen For use if pump fails. Inject 10 units every AM and 10 units every PM. Space doses 12 hours apart. 15 mL 03/01/2024 Active Insulin Pen Needle ([employer] Pen Creighton) 32G X 4 MM MISCIndications:Ty pe 1 diabetes mellitus affecting in second trimester, antepartum ([facility]) Use 1 Each 2 times daily 100 Each 5 03/01/2024 Active Nirmatrelvir&Riton avir 300/100 20 x 150 MG & 10 x 100MG Oral Tablet Therapy Pack (Paxlovid)Indicati ons:COVID-19 affecting in second trimester ([facility]) Take two 150mg tablets (300mg) of nirmatrelvir and one tablet (100mg) of ritonavir together as a single dose by mouth twice daily for 5 days. Do not crush, chew, or cut in half. 30 tablet 03/21/2024 Active Additional Information Patient not taking.Reason: Not effective, Informant: Patient, Reported on 05/31/2024 ondansetron, disintegrating, (Zofran ODT) 4 MG tabletIndications: Nausea and/or Vomiting in Take 1 (one) tablet by mouth every 6 hours as needed for Nausea/Vomiting Allow tablet to dissolve on the tongue Reasons: Nausea and Vomiting in 30 tablet 1 03/29/2024 Active Additional Information Patient not taking.Reported on 08/24/2024 docusate sodium (Colace) 100 MG capsule Take 1 (one) capsule by mouth once daily 60 capsule 2 04/05/2024 Active Additional Information Patient not taking.Reported on 08/24/2024 nitrofurantoin monohyd macro crystals (Macrobid) 100 MG capsule Take 1 (one) capsule by mouth every 12 hours 04/17/2024 Active calcium carbonate (Tums) 500 MG chew tablet Take 1 (one) tablet by mouth daily with food Active famotidine (Pepcid) 20 MG tablet Take 1 (one) tablet by mouth 2 times daily 60 tablet 4 05/02/2024 Active Additional Information Patient not taking.Reported on 08/24/2024 Vit-Fe Fumarate-FA ( vitamin) 28-0.8 MG tablet Take 1 (one) tablet by mouth once daily 30 tablet 11 05/02/2024 Active Additional Information Patient not taking.Reported on 05/31/2024 insulin lispro (HumaLOG;ADMelog) 100 UNIT/ML pen INJECT 10 UNITS UNDER THE SKIN THREE TIMES DAILY PRIOR TO MEALS IF BLOOD SUGAR OVER 150 10/06/2023 Active acetaminophen (Tylenol) 500 MG tablet Take 1 (one) tablet by mouth every 6 hours as needed Active nitrofurantoin monohyd macro crystals (Macrobid) 100 MG capsule Take 1 (one) capsule by mouth every 12 hours 10 capsule 05/17/2024 Active Additional Information Patient not taking.Informant: Patient, Reported on 08/24/2024 nitrofurantoin monohyd macro crystals (Macrobid) 100 MG capsule Take 1 (one) capsule by mouth once daily 30 capsule 1 05/17/2024 Active Additional Information Patient not taking.Reported on 08/24/2024 polyethylene glycol 3350 (Miralax) 17 GM/SCOOP powder Take 17 (seventeen) g by mouth once daily 500 g 06/04/2024 Active Additional Information Patient not taking.Reported on 08/24/2024 ibuprofen (Motrin) 600 MG tablet Take 1 (one) tablet by mouth every 6 hours as needed for Pain 30 tablet 06/04/2024 Active Additional Information Patient not taking.Reported on 08/24/2024 oxyCODONE, immediate release, (Roxicodone) 5 MG tabletIndications: Pre-existing type 1 diabetes mellitus during , antepartum (HCC) Take 1 (one) tablet by mouth every 6 hours as needed for Pain 10 tablet 06/04/2024 Active Additional Information Patient not taking.Reported on 08/24/2024 FLUoxetine (PROzac) 20 MG capsule Take 1 (one) capsule by mouth once daily 60 capsule 2 08/24/2024 Active norelgestromin-eth inyl estradiol (Ortho-Evra) 150-35 MCG/24HR patch Apply 1 (one) patch to skin every 7 days 3 patch 11 08/24/2024 Active Continuous Glucose Sensor (Dexcom G7 Sensor) MISCIndications:Ty pe 1 diabetes mellitus during in first trimester (HCC) Use 1 Each continuous 3 Each 08/24/2024 Active Active Problems Patient Care Coordination No te Formatting of this note migh t be different from the original. [employer] form completed. Diapers given. 04/05/2024, 05/02/24, 08/24/2024 *PLEASE NOTE - WISH RESEARCH STUDY PATIENT* This patient is enrolled in Drs. Guerrero/Dr. Quinonez research study investigating differences in genetic make-up between placentas exposed to opioid use disorder and controls. (IRB#[id number]). Please collect: Placenta Biopsy after delivery of placenta Supplies (scalpel and formalin container) are located in basket above the research fridge on L&D (in soiled holding room #5113 next to bathroom) Take biopsy of placenta (~3z1euld full thickness near cord insertion) and place in formalin container Place patient sticker in bag with formalin. Place in back in basket in room air above research fridge (in soiled holding room #5113 next to bathroom) Text Dr. Guerrero MINE at [phone] that specimen collected. Problem Noted Date Diagnosed Date Depression 05/31/2024 Type 1 diabetes mellitus dur ing in third trimester 05/31/2024 GBS (group B Streptococcus c arrier), +RV culture, currently 05/30/2024 Poor weight gain of 05/30/2024 Research study patient 05/30/2024 Overview (05/30/2024): *PLEASE NOTE - WISH RESEARCH STUDY PATIENT* This patient is enrolled in Drs. Guerrero/Dr. Quinonez research study investigating differences in genetic make-up between placentas exposed to opioid use disorder and controls. (IRB#[id number]). Please collect: Placenta Biopsy after delivery of placenta Supplies (scalpel and formalin container) are located in basket above the research fridge on L&D (in soiled holding room #5113 next to bathroom) Take biopsy of placenta (~5f3pfaj full thickness near cord insertion) and place in formalin container Place patient sticker in bag with formalin. Place in back in basket in room air above research fridge (in soiled holding room #5113 next to bathroom) Text Dr. Guerrero MINE at [phone] that specimen collected. contractions 05/16/2024 Supervision of high risk in third trim lyndsay 04/04/2024 Overview (04/05/2024): Primary OB: [facility] - PNL: A pos, Antibody neg, HIV/Hep B/ Hep C/ RPR NR - GCCT/trich: neg - Last Pap: not yet indicated due to age - Genetic screening: NIPT, low risk female - Vaccinations: - Tdap: assess after 27w - Influenza: 11/10/23 - COVID: Vaccinated in 2020 - RSV: may offer if between 32-36 weeks from May - Sep - Ultrasounds: - Dated by 7w2d US - Anatomy US, completed on 03/01/24 - 3T labs: - CBC: - Tdap: - GBS: - Feeding: breast and bottle feeding - Contraception: plans on Nexplanon Growth (03/29/24): cephalic, ant placenta, DVP 6.6, EFW 1090 50% Type 1 diabetes mellitus in 04/04/2024 Overview (04/05/2024): Current medications: Lantus 06/29, Humalog ICR 1:6, does have a pump but is currently using her SQ insulin - diagnosed in 2014, reports 3 episodes of DKA since diagnosis with most recent admission last year - Last A1c reported at >14 , A1c 11/10: 9.8 > (01/12/24) 5.7% - Reports saw Optho 11/2023 and no issues - 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 Previously recommended regular foot examinations - Technical Buyer is Dr. Marquez in [place] - Baseline PIH labs: 42/ 344/ 0.54/ 10, 24h urine: 84 - TSH wnl 10/202304/05/24: Patient reports she is still not checking blood sugars, POCT BG 284, will send to [facility] for evaluation of DKA and inpatient management for blood sugar optimization Poor dentition 04/04/2024 Overview (04/04/2024): No abscess appreciated on exam (03/01) Dental letter given (03/01) and Orajel Rx sent Discussed importance of dental health to the health of the DM type 1, not at goal 03/08/2024 Immunizations Name Administration Dates Next Due INFLUENZA VACCINE 11/19/2023 INFLUENZA VACCINE, QUADR. (F LUZONE; FLULAVAL; FLUARIX; AFLURIA QUADRIVALENT; 6MO+), 0.5 ML (IIV4) 11/10/2023(Deferred: Patient Refused) INFLUENZA VACCINE, TRIV. (FL UZONE; FLULAVAL; FLUARIX; AFLURIA TRIVALENT; 6MO+), 0.5 ML (IIV3) 08/24/2024 TDAP (7yrs+) 04/24/2024 Social History Tobacco Use Types Packs/Day Years Used Date Smoking Tobacco: Former Cigarettes Smokeless Tobacco: Never Tobacco Cessation:Counseling Given: Not Answered Alcohol Use Standard Drinks/Week Comments Never 0 (1 standard drink = 0.6 oz pur e alcohol) Overall Financial Resource Strain (CARDIA) Answe r Date Recorded How hard is it for you to pa y for the very basics like food, housing, medical care, and heating? Not hard at all 05/31/2024 [facility] - Occupational Stress Questionnaire Answer Date Recorded Do you feel stress - tense, restless, nervous, or anxious, or unable to sleep at night because your mind is troubled all the time - these days? Not at all 05/31/2024 Hunger Vital Sign Answer Date Recorded Within the past 12 months, y ou worried that your food would run out before you got the money to buy more. Never true 05/31/20 24 Within the past 12 months, t he food you bought just didn't last and you didn't have money to get more. Never true 05/31/2024 PRAPARE - Transportation Answer Date Re corded In the past 12 months, has l ack of transportation kept you from medical appointments or from getting medications? No 05/21 In the past 12 months, has l ack of transportation kept you from meetings, work, or from getting things needed for daily living? No 05/31/2024 Housing Stability Vital Sign Answer Kyle e Recorded In the last 12 months, was t here a time when you were not able to pay the mortgage or rent on time? No 05/31/2024 In the last 12 months, how many places have you lived? 2 05/31/2024 In the last 12 months, was t here a time when you did not have a steady place to sleep or slept in a detention (including now)? No 05/31/2024 [place] Depression Scale Answer Date Recorded [place] Depression Scale Total 3 06/03/2024 The thought of harming myself has occurred to me . Never 06/03/2024 Sex and Gender Information Value Date Recorded Sex Assigned at Not on file Gender Identity Not on file Sexual Orientation Not on file Last Filed Vital Signs Vital Sign Reading Time Taken Comments Blood Pressure 107/59 08/24/2024 9:21 AM FINANCIAL PLANNING ASSISTANT Pulse 95 08/24/2024 9:21 AM FINANCIAL PLANNING ASSISTANT Temperature 36.7 C (98 F) 06/30/2024 9:00 PM CDT Respiratory Rate 20 06/30/2024 9:00 PM CDT Oxygen Saturation 99% 06/30/2024 9:00 PM CDT Inhaled Oxygen Concentration - - Weight 44 kg (97 lb) 08/24/2024 9:21 AM FINANCIAL PLANNING ASSISTANT Height 149.9 cm (4' 11 ) 05/31/2024 6:37 PM CDT Body Mass Index 19.59 05/31/2024 6:37 PM CDT Functional Status Functional Status Response Date of Assess ment Is person deaf or have serious hearing difficult y? No 05/31/2024 Is person blind or have serious difficulty seein g? No 05/31/2024 Does person have serious dif ficulty walking/climbing stairs? No 05/31/2024 Does person have difficulty dressing/bathing? No 05/31/2024 Does person have difficulty doing errands alone? No 05/31/2024 Cognitive Status Response Date of Assessm ent Does person have difficulty concentrating/remembering/making decisions? No 05/31/2024 Plan of Treatment Not on file Procedures Procedure Name Priority Date/Time Associated Diagnosis Comments URINALYSIS - POCT (IP) BEAKER INTERFACE Routine 08/24/2024 10:11 AM FINANCIAL PLANNING ASSISTANT HCG URINE QUALITATIVE - POCT (IP) INTERFACED Routine 08/24/2024 9:31 AM FINANCIAL PLANNING ASSISTANT GLUCOSE - POINT OF CARE Routine 08/24/2024 9:21 AM FINANCIAL PLANNING ASSISTANT COMPREHENSIVE METABOLIC PANEL Routine 06/03/2024 9:47 AM CDT HEMOGLOBIN A1C Routine 05/23/2024 2:49 PM CDT Type 1 diabetes mellitus during in third trimester (HCC) CHLAMYDIA + GC AMPLIFIED PROBE Routine 05/16/2024 11:42 PM CDT HIV-1 HIV-2 ANTIBODY + HIV P24 AG PANEL Routine 04/24/2024 12:27 PM CDT Supervision of high risk in third trimester (HCC) HEPATITIS C ANTIBODY Routine 11/10/2023 2:55 PM FINANCIAL PLANNING ASSISTANT Supervision of high risk , antepartum (HCC) from Last 3 Months or Most Recently Relevant to Health Maintenance Results * (ABNORMAL) URINALYSIS - POCT (IP) BEAKER INTERFACE (08/24/2024 10:11 AM FINANCIAL PLANNING ASSISTANT) Color UA POCT Dark Yellow Straw, Yellow, Dark Yellow, Light Yellow 08/24/2024 10:14 AM FINANCIAL PLANNING ASSISTANT [facility] Clarity UA POCT Clear Clear 10:14 AM FINANCIAL PLANNING ASSISTANT [facility] Specific Prole UA POCT >=1.030 1.005 - 1.030 08/24/2024 10:14 AM FINANCIAL PLANNING ASSISTANT [facility] pH UA POCT 5.5 5.0 - 8.0 pH 08/24/2024 10:14 AM FINANCIAL PLANNING ASSISTANT [facility] Protein UA POCT Trace(A) Negative 10:14 AM FINANCIAL PLANNING ASSISTANT [facility] Blood UA POCT 3+(A) Negative 08/24/2024 10:14 AM FINANCIAL PLANNING ASSISTANT [facility] Leukocyte UA POCT Negative Negative 08/24/2024 10:14 AM FINANCIAL PLANNING ASSISTANT [facility] Nitrite UA POCT Negative Negative 10:14 AM FINANCIAL PLANNING ASSISTANT [facility] Glucose UA POCT 3+(A) Negative 10:14 AM FINANCIAL PLANNING ASSISTANT [facility] Ketone UA POCT 1+(A) Negative 08/24/2024 10:14 AM FINANCIAL PLANNING ASSISTANT [facility] Bilirubin UA POCT Negative Negative 08/24/2024 10:14 AM FINANCIAL PLANNING ASSISTANT [facility] Urobilinogen UA POCT 0.2 0.1 - 1.0 EU/dL 08/24/2024 10:14 AM FINANCIAL PLANNING ASSISTANT [facility] Urine URINE / Unknown 08/24/2024 1 0:11 AM FINANCIAL PLANNING ASSISTANT 08/24/2024 10:14 AM FINANCIAL PLANNING ASSISTANT Kishore Hermannaomi DO LAB - POINT OF CARE ORDERABLES Performing Organization Address City/[facility]/ZIP Co de Phone Number [facility] [address] [place] [id number] * HCG URINE QUALITATIVE - POCT (IP) INTERFACED (08/24/2024 9:31 AM FINANCIAL PLANNING ASSISTANT) HCG Qual Urine Negative Negative 08/24/2024 9:38 AM [facility] Urine URINE / Unknown 08/24/2024 9 :31 AM FINANCIAL PLANNING ASSISTANT 08/24/2024 9:38 AM FINANCIAL PLANNING ASSISTANT [facility] - POINT OF CARE ORDERABLES [facility] [address] [place] [id number] * (ABNORMAL) GLUCOSE - POINT OF CARE (08/24/2024 9:21 AM FINANCIAL PLANNING ASSISTANT) Glucose WB/POC 305(H) 70 - 99 mg/dL 08/24/2024 9:30 AM FINANCIAL PLANNING ASSISTANT [facility] Specimen Type Cap Fingerstick 2023 9:30 AM [facility] Blood BLOOD SPECIMEN / Unknown 08/24/2024 9:21 AM FINANCIAL PLANNING ASSISTANT 08/24/2024 9:30 AM FINANCIAL PLANNING ASSISTANT Kishore Small DO LAB - POINT OF CARE ORDERABLES [facility] [address] [place] [address] * (ABNORMAL) COMPREHENSIVE METABOLIC PANEL (06/03/2024 9:47 AM CDT) [facility] Glucose 124(H) 70 - 105 mg/dL 06/03/2024 10:14 AM CDT [facility] Sodium 137 136 - 145 mmol/L 06/03/2024 10:14 AM CDT [facility] Potassium 3.4(L) 3.5 - 5.1 mmol/L 06/03/2024 10:14 AM CDT [facility] Chloride 108(H) 98 - 107 mmol/L 06/03/2024 10:14 AM CDT [facility] CO2 21(L) 22 - 29 mmol/L 06/03/2024 10:14 AM CDT [facility] Calcium 7.7(L) 8.4 - 10.4 mg/dL 06/03/2024 10:14 AM CDT [facility] Anion Gap 8 6 - 16 mmol/L 06/03/2024 10:14 AM CDT [facility] BUN 14 5.3 - 18.7 mg/dL 06/03/2024 10:14 AM CDT [facility] Creatinine 0.70 0.57 - 1.11 mg/dL 06/03/2024 10:14 AM [facility] Alkaline Phosphatase 66 40 - 150 U/L 06/03/2024 10:14 AM CDT [facility] ALT <6 0 - 55 U/L 06/03/2024 10:14 AM CDT [facility] AST 14 5 - 34 U/L 06/03/2024 10:14 AM CDT [facility] Protein Total 4.3(L) 6.4 - 8.3 gm/dL 06/03/2024 10:14 AM CDT [facility] Albumin 1.8(L) 3.4 - 5.0 gm/dL 06/03/2024 10:14 AM CDT [facility] Bilirubin Total 0.4 0.2 - 1.2 mg/dL 06/03/2024 10:14 AM CDT [facility] eGFR by CKD-EPI >90 >=90 mL/min/1.7 3 m2 06/03/2024 10:14 AM CDT [facility] Blood BLOOD SPECIMEN / Unknown Lab Venipuncture / Unknown 06/03/2024 9:47 AM CDT 06/03/2024 9:54 AM CDT Radha Nicolas MD LAB - CHEMISTRY [place] [facility] Organization Address City/State/ZIP Co de Phone Number [facility] [address] [place], [place] [id number] * (ABNORMAL) HEMOGLOBIN A1C (05/23/2024 2:49 PM CDT) Pathologist [facility] Hemoglobin A1c 7.5(H) <5.7 % 05/23/2024 3:45 PM CDT [facility] Estimated Average Glucose 169 mg/dL 05/23/2024 3:45 PM CDT [facility] Blood BLOOD SPECIMEN / Unknown Venipuncture / Unknown 05/23/2024 2:49 PM CDT 05/23/2024 3:27 PM CDT Narrative [facility] - 05/23/2024 3:45 PM CDT HbA1c Interpretation: Normal: < 5.7% Pre-diabetes: 5.7-6.4% Diabetes: Equal to or greater than 6.5% Test results diagnostic of diabetes should be repeated for confirmation. Treatment target values recommended by ADA and other clinical organizations should be used to evaluate metabolic control in patients. This test should not replace glucose testing for patients with Type 1 diabetes, pediatric patients, or women. Falsely low HbA1c results may be observed in patients with clinical conditions that shorten erythrocyte life span or decrease mean erythrocyte age such as the presence of unstable hemoglobin variants, elevated hemoglobin F level or other causes of hemolytic anemia. HbA1c may not accurately reflect glycemic control when clinical conditions that affect erythrocyte survival are present. Severe Iron deficiency anemia may yield falsely high results. Hemoglobin A1c assay should not be used to diagnose or monitor diabetes in patients with malignancy, recent blood transfusion, chronic kidney or liver disease. This method may yield falsely low results when hemoglobin (HbF) exceeds 5% in the specimen. The Marshall Alinity assay for the measurement of HbA1c is a National Glycohemoglobin Standardization Program (NGSP) certified method. Josefina Felton MD LAB - CHEMISTRY [place] [facility] [facility] [address] [place] [address] * CHLAMYDIA + GC AMPLIFIED PROBE (05/16/2024 11:42 PM CDT) Pathologist [facility] Chlamydia Amplified Probe Negative Negative 05/17/2024 8:07 PM CDT [facility] GC Amplified Probe Negative Negative 05/17/2024 8:07 PM CDT [facility] Other URINE / Unknown Collection / Unknown 05/16/2024 11:42 PM CDT 05/16/2024 11:56 PM CDT Narrative [facility] - 05/17/2024 8:07 PM CDT Results based on detection/no detection of ribosomal RNA by amplified method. Sidney Gray MD LAB - MICROBIO LOGY ORDERABLES Performing Organization Address [facility] Co de Phone Number [facility] [address] [place] [address], [facility] [phone] * HIV-1 HIV-2 ANTIBODY + HIV P24 AG PANEL (04/24/2024 12:27 PM CDT) [facility] HIV1/2 Ab + P24 Ag Non Reactive Non Reactive 04/24/2024 1:22 PM CDT [facility] Blood BLOOD SPECIMEN / Unknown Venipuncture / Unknown 04/24/2024 12:27 PM CDT 04/24/2024 12:40 PM CDT Narrative [facility] - 04/24/2024 1:22 PM CDT No Laboratory evidence of HIV infection. Sidney Gray MD LAB - CHEMISTR Y ORDERABLES Performing Organization Address City/[facility]/ZIP Co de Phone Number [facility] [address] [place] [id number] * HEPATITIS C ANTIBODY (11/10/2023 2:55 PM FINANCIAL PLANNING ASSISTANT) HCV Antibody Screen Non Reactive Non Reactive 11/10/2023 4:00 PM FINANCIAL PLANNING ASSISTANT [facility] Blood BLOOD SPECIMEN / Unknown Venipuncture / Unknown 11/10/2023 2:55 PM FINANCIAL PLANNING ASSISTANT 11/10/2023 3:13 PM FINANCIAL PLANNING ASSISTANT Narrative [facility] - 11/10/2023 4:00 PM FINANCIAL PLANNING ASSISTANT Non Reactive - Antibodies to Hepatitis C virus (HCV) were not detected, result does not exclude early acute HCV infection. Eb Nye MD LAB - CHEMISTRY [place] [facility] [address] [place] [address] from Last 3 Months or Most Recently Relevant to Health Maintenance Advance Directives * Full Code (Latest Code Status on File) Date Activated Date Inactivated Comments 06/02/2024 8:43 AM 06/04/2024 6:21 PM * Full Code Date Activated Date Inactivated Comments 05/31/2024 5:18 PM 06/02/2024 8:43 AM * Full Code Date Activated Date Inactivated Comments 05/31/2024 3:06 PM 05/31/2024 5:18 PM * Full Code Date Activated Date Inactivated Comments 05/16/2024 6:26 PM 05/17/2024 4:50 PM * Full Code Date Activated Date Inactivated Comments 03/08/2024 3:57 PM 03/09/2024 3:52 PM
--- OUTSIDE RECORDS SUMMARY | 2024-11-02 11:21 | XMS_ITS | Clinical Summary ---
Author Organization [facility] Address [address] [place] [id number] Care Team Providers Care Custom Decorating Consultant Name Role Phone Unknown, Notinfile Primary Care Provider Unavail able Allergies Active Allergy Reactions Criticality Noted Date Comments Garlic Rash High 03/06/2020 Mushroom Angioedema High 03/06/2020 Swelling to lips and mouth after eating mushrooms Peanut Butter Flavor Anaphylaxis High 11/07/2021 Medications insulin admin supplies insulin pen Inject 250 Pens under the skin 2 (two) times a day 120 each 04/23/20 23 Active insulin lispro (HumaLOG, ADMELOG) 100 unit/mL vial for injection Inject 5 Units under the skin 3 (three) times a day before meals 10 mL 04/23/20 23 Active subcutaneous insulin pump (t:slim X2 Insulin Pump) misc Active blood-glucose meter,continuous (Dexcom G6 Frickertron Checker) misc Activ e blood-glucose sensor (Dexcom G6 Sensor) device Activ e blood-glucose transmitter (Dexcom G6 Transmitter) device Active vit,xqfp60-dipw-zy lic (PRENATABS RX) tablet tablet Take by mouth daily Active lidocaine viscous (XYLOCAINE) 2 % solutionIndication s:Dental infection Apply 1-2 mL to the mouth or throat every 4 (four) hours as needed (pain) Apply to lesions every six hours as needed for discomfort. Do not exceed maximum dose of of 4 times daily. 100 mL 01/29/20 24 Active acetaminophen (TYLENOL) 500 mg tablet Take 1 tablet (500 mg total) by mouth every 6 (six) hours as needed Active alcohol swabs pads, medicated Indications: Diabetes Provide per Pt preference or as covered per insurance. For testing blood glucose levels and/or administering insulin as ordered by Provider. DXE 10.9 04/28/20 23 Active aspirin 81 mg enteric coated tablet Take 2 tablets (162 mg total) by mouth daily 12/01/19 24 Active OneTouch Verio test strips strip daily 12/29/19 24 Active OneTouch Verio Flex meter misc as directed 01/04/20 24 Active docusate sodium (COLACE) 100 mg capsule Take 1 capsule (100 mg total) by mouth 2 (two) times a day 12/03/19 24 Active LANTUS 100 unit/mL (3 mL) pen for injection 03/01/20 24 Active OneTouch Delica Plus Lancet 33 gauge misc daily 12/29/19 24 Active magnesium oxide (MAG-OX) 400 mg (241.3 mg elemental magnesium) tablet Take 1 tablet (400 mg total) by mouth daily 02/02/20 24 Active ondansetron ODT (ZOFRAN-ODT) 4 mg disintegrating tablet Take 1 tablet (4 mg total) by mouth every 6 (six) hours as needed 11/26/19 24 Active TRUEplus Pen Needle 31 gauge x 3/16 needle USE TO INJECT TWICE DAILY 03/01/20 24 Active Se--19 29 mg iron- 1 mg tablet Take 1 tablet by mouth daily 02/02/20 24 Active sertraline (ZOLOFT) 50 mg tablet 06/09/20 23 Active Active Problems Problem Noted Date Diagnosed Date DM type 1, not at goal 03/08/2024 PTSD (post-traumatic stress disorder) 05/16/2020 Bilateral carpal tunnel syndrome 09/29/2019 Overview (03/21/2024): EMG performed on 09/27/2019 confirmed diagnosis. Type 1 diabetes mellitus with hyperglycemia 05/21 Anxiety and depression 08/30/2017 Encounters Date Type Department Care Team Description 10/18/2024 5:26 PM [employer] - 10/18/2024 5:56 PM [facility] Emergency [facility] Emergency Department [address] [place] [address] Discharge Disposition: Left without being seen 10/08/2024 3:56 PM [employer] - 10/08/2024 6:08 PM [employer] Emergency [facility] Emergency Department [address] [place] [address] Viral illness (Primary Dx) Discharge Disposition: Discharge to home or self care 10/06/2024 7:19 AM [employer] - 10/06/2024 8:27 AM [employer] Emergency [facility] Emergency Department [address] [place] [address] Clifford Gandara MD Viral syndrome (Primary Dx) Discharge Disposition: Discharge to home or self care from Last 3 Months Surgical History Surgery Date Site/Laterality Comments DILATION AND CURETTAGE OF UTERUS Medical History Medical History Date Comments Diabetes mellitus (HCC) Type 1 Anxiety Depression Family History Medical History Relation Name Comments Stent Paternal Grandfather Leg Breast cancer Paternal Grandmother Depression Sister 1 Deafness Sister 2 Holoprosencephaly Sister 2 Relation Name Status Comments Paternal Grandfather Paternal Grandmother Sister 1 Sister 2 Alive Social History Tobacco Use Types Packs/Day Years Used Date Smoking Tobacco: Every Day Vaping Tobacco Cessation:Ready to Q uit: Not Asked; Counseling Given: Not Answered AUDIT-C Answer Date Recorded Q1: How often do you have a drink containing alcohol? Never 11/01/2023 Q2: How many drinks containi ng alcohol do you have on a typical day when you are drinking? Patient does not drink Q3: How often do you have si x or more drinks on one occasion? Never 11/01/2023 Personal Safety Answer Date Recorded Have you ever been in or are you currently in a harmful physical or emotional relationship or is someone making you feel afraid or unsafe? Denies 10/18/2024 Comments No Sex and Gender Information Value Date Recorded Sex Assigned at Not on file Legal Sex Female 2:36 PM CDT Gender Identity Not on file Sexual Orientation Not on file Obstetrics History Para Term AB IAB SAB Ectopic Multiple Livin g Live Births 2 1 1 Date Outcome GA Total Labor Labor/2nd/3rd Weight Sex Type Anes PTL Serena A1 A5 Name Clin 2020 SAB Last Filed Vital Signs Vital Sign Reading Time Taken Comments Blood Pressure 123/70 10/18/2024 4:10 PM [employer] Pulse 98 10/18/2024 4:10 PM [employer] Temperature 36.6 C (97.9 F) 10/18/2024 4:10 PM [employer] Respiratory Rate 14 10/18/2024 4:10 PM [employer] Oxygen Saturation 100% 10/18/2024 4:10 PM [employer] Inhaled Oxygen Concentration - - Weight 41.7 kg (92 lb) 10/18/2024 4:10 PM [employer] Height 152.4 cm (5') 10/18/2024 4:10 PM [employer] Body Mass Index 17.97 10/18/2024 4:10 PM [employer] Plan of Treatment Health Maintenance Due Date Last Done Comments Albumin Creatinine Ratio, Urine 2004 Chlamydia and Gonorrhea (GC/ CT) Screening 2004 Depression Screening 2004 Foot Exam 2004 Hepatitis C Screening 2004 Pneumococcal vaccine <65 (1 of 1 - PPSV23 or PCV20) 2010 10/22/2005, 08/06/2005, 07/09/2005, Additional history exists Dilated Eye Exam 2014 Lipid Panel 2014 HPV Vaccines (1 - 3-dose series) 2019 Meningococcal B Vaccine (2 o f 2 - Risk Trumenba 2-dose series) 12/09/2021 06/11/2021 Regular Well Visit/Exam 18-64 2022 Hemoglobin A1C 10/24/2023 04/23/2023 TSH Level 11/10/2024 11/10/2023, 04/23/2023 eGFR 12/05/2024 12/06/2023, 04/23/2023 DTaP/Tdap/Td Vaccine (8 - Td or Tdap) 04/24/2034 04/24/2024, 07/12/2015, 01/14/2010, Additional history exists Hepatitis B Screening Completed 10/22/2005 , 07/09/2005, 2004 Varicella Vaccines Completed 01/14/2010, 07/09/2005 Meningococcal Vaccine Completed 06/11/2021, 015 Influenza Vaccine Completed 08/24/2024, , 09/03/2022, Additional history exists Procedures Procedure Name Priority Date/Time Associated Diagnosis Comments XR CHEST 1 VIEW ED 10/06/2024 7:49 AM [employer] INFLUENZA A/B, RSV, AND COVID-19 PCR Routine 10/06/2024 7:19 AM [employer] EGFR STAT 12/06/2023 12:36 PM CDT HEMOGLOBIN A1C Routine 04/23/2023 4:07 PM CDT TSH STAT 04/23/2023 4:07 PM CDT from Last 3 Months or Most Recently Relevant to Health Maintenance Results * XR Chest 1 View (10/06/2024 7:49 AM [employer]) Anatomical Region Laterality Modality Body, Chest N/A Computed Radiogr aphy 10/06/2024 7:52 AM [employer] Narrative 10/06/2024 7:54 AM [employer] EXAM DESCRIPTION: XR CHEST 1 VIEW REASON FOR STUDY: cough, c/f pna Pt to ED via POV. Per Pt has had a cough x2 days with w/o production. Pt reports being seen at an area hospital where she was flu and covid neg. Pt reports chest discomfort when coughing. TECHNIQUE: 1 radiographic view(s) of the chest. COMPARISON: None available FINDINGS: LUNGS: No focal opacity, pleural effusion, or pneumothorax. HEART/MEDIASTINUM: Cardiac silhouette normal in size. Mediastinal and hilar contours appear normal. LINES/TUBES: None. BONES: No acute osseous abnormality. IMPRESSION: No acute cardiopulmonary abnormality. THIS IS AN ELECTRONICALLY VERIFIED FINAL REPORT 10/06/2024 7:54 AM - Electronically signed by Raymundo Lauren M.D. KN: [id number] Report ID: [id number] Reading Location: [id number] Procedure Note Raymundo Lauren MD - 10/06/2024 EXAM DESCRIPTION: XR CHEST 1 VIEW REASON FOR STUDY: cough, c/f pna Pt to ED via POV. Per Pt has had a cough x2 days with w/o production. Pt reports being seen at an area hospital where she was flu and covid neg. Pt reports chest discomfort when coughing. TECHNIQUE: 1 radiographic view(s) of the chest. COMPARISON: None available FINDINGS: LUNGS: No focal opacity, pleural effusion, or pneumothorax. HEART/MEDIASTINUM: Cardiac silhouette normal in size. Mediastinal andhilar contours appear normal. LINES/TUBES: None. BONES: No acute osseous abnormality. IMPRESSION: No acute cardiopulmonary abnormality. THIS IS AN ELECTRONICALLY VERIFIED FINAL REPORT 10/06/2024 7:54 AM - Electronically signed by Raymundo Lauren M.D. KN: [id number] Report ID: [id number] Reading Location: [place] [address] Clifford Gandara MD IMG XR PROCEDURES F inal Result * Influenza A/B, RSV, and COVID-19 PCR Nasopharyngeal (10/06/2024 7:19 AM [employer]) COVID-19 RNA Negative Negative Influenza A RNA Negative Negative [facility] ([place]) Influenza B RNA Negative Negative [facility] ([place]) RSV RNA Negative Negative [facility] ([place]) Comment: Interpretive data: Testing performed by [facility]. This test is performed using the ClientShow Xpert Xpress CoV-2/Flu/RSV plus assay. This is a multiplex, real- time reverse transcriptase PCR assay intended for the qualitative detection of nucleic acid from SARS-CoV-2, influenza A, influenza B, and respiratory syncytial virus. This assay has been cleared by the [place] Food and Drug administration. The performance characteristics have been verified by the [facility]. Results must be considered in the clinical context, and a negative result does not rule out infection. Interpretive Data last revised 2023 Nasopharyngeal 10/06/2024 7: 19 AM [employer] 10/06/2024 7:24 AM [employer] Narrative [facility] ([place]) - 10/06/2024 8:14 AM [employer] Is the Patient experiencing symptoms consistent with COVID?->Yes Clifford Gandara MD LAB MICROBIOLOGY - GENERAL ORDERABLES Final Result [facility] [address] Department [place] [address] * eGFR (12/06/2023 12:36 PM CDT) eGFR 143 mL/min/1. 73 m2 Comment: Interpretive Data Reference Interval Normal >/= 90 mL/min/1.73m2 Mildly decreased* 60 - 89 mL/min/1.73m2 Mildly to moderately decreased 45 - 59 mL/min/1.73m2 Moderately to severely decreased 30 - 44 mL/min/1.73m2 Severely decreased 15 - 29 mL/min/1.73m2 Kidney Failure < 15 mL/min/1.73m2 *Relative to young adult level Estimated glomerular filtration rate is determined by the 2020 CKD-EPI equation recommended by the National Kidney Foundation (A Unifying Approach to GFR Estimation: Recommendations of the NKF-ASK Task Force on Reassessing the Inclusion of Race in Diagnosing Kidney Disease, JASN 2020). The CKD-EPI equation should not be used for patients with unstable renal function and has not been validated in children and those over 70. Current interpretive data was last reviewed 2021. Blood 12/06/2023 12:3 6 PM CDT 12/06/2023 12:43 PM CDT us Yanet Choudhary MD LAB BLOOD ORDERABLE S Final Result [facility] ([place]) [address] [facility] [place] [address] * TSH (04/23/2023 4:07 PM CDT) Thyroid Stimulating Hormone 1.75 0.30 - 4.20 mcIUnit/mL [facility] ([place]) Blood 04/23/2023 4:07 PM CDT 04/23/2023 4:11 PM CDT us Naveen Burrell MD LAB BLOOD ORDERABLES Final Result [facility] ([place]) [address] [facility] [place] [address] * (ABNORMAL) Hemoglobin A1c (04/23/2023 4:07 PM CDT) Hgb A1C 14.7(H) 4.0 - 5.6 % [facility] ([place]) Estimated Average Glucose 375 mg/dL [facility] ([place]) Comment: The ADA recommends reporting an estimated Average Glucose (eAG) with all Hemoglobin A1c results using the equation derived from a study of 507 normal and diabetic adults. Minority populations were underrepresented and children were not included. (Diabetes Care 31:4596-1915, 2008). The eAG is not equivalent to a fasting glucose. Blood 04/23/2023 4:07 PM CDT 04/23/2023 4:11 PM CDT Naveen Burrell MD LAB BLOOD ORDERABLES Final Result [facility] ([place]) 1 [facility] Department [place] [address] from Last 3 Months or Most Recently Relevant to Health Maintenance Insurance [facility] Care Teams Custom Decorating Consultant Relationship Specialty Start Date End Date Unknown, Notinfile PCP - General 01/29/24
--- OUTSIDE RECORDS SUMMARY | 2024-11-02 11:21 | XMS_ITS | Clinical Summary ---
Author Organization [facility] [employer] Address [address] [place] [address] Care Team Providers Care Lifeguard Name Role Phone Unavailable Primary Care Provider Unavailabl e Source Comments [facility],non-owned Affiliates and Associated Physician Practices is amultiple site organization consisting of ambulatory clinics and hospital sitesin [place], [place], [place] and [place]. This disclosure is being madepursuant to the Care Everywhere program and may not contain all information available regarding this patient. Last updated 18.[facility] [employer] Allergies Active Allergy Reactions Criticality Noted Date [...] Space doses 12 hours apart. 15 mL 4 03/01/2024 Active Insulin Pen Needle (TechLite Pen [place]) 32G X 4 MM MISCIndications:Ty pe 1 [...] migh t be different from the original. [employer] form completed. Diapers given. 04/05/2024, 05/02/24, 08/24/2024 *PLEASE NOTE - WISH RESEARCH STUDY PATIENT* This patient is enrolled in Drs. Guerrero/Dr. Quinonez research study investigating differences in genetic make-up between placentas exposed to opioid use disorder and controls. (IRB#[id number]). Please collect: Placenta Biopsy after delivery of placenta Supplies (scalpel and formalin container) are located in basket above the research fridge on L&D (in soiled holding room #5113 next to bathroom) Take biopsy of placenta (~3d3kyfp full thickness near cord insertion) and place in formalin container Place patient sticker in bag with formalin. Place in back in basket in room air above research fridge (in soiled holding room #5113 next to bathroom) Text Dr. Guerrero MINE at [phone] that specimen collected. Problem Noted Date Diagnosed [...] exposed to opioid use disorder and controls. (IRB#[id number]). Please collect: Placenta Biopsy after delivery of placenta Supplies (scalpel and formalin container) are located in basket above the research fridge on L&D (in soiled holding room #5113 next to bathroom) Take biopsy of placenta (~3e5ddis full thickness near cord insertion) and place in formalin container Place patient sticker in bag with formalin. Place in back in basket in room air above research fridge (in soiled holding room #5113 next to bathroom) Text Dr. Guerrero MINE at [phone] that specimen collected. contractions 05/16/2024 Supervision of high risk in third trim lyndsay 04/04/2024 Overview (04/05/2024): Primary OB: [place] - PNL: A pos, Antibody neg, HIV/Hep [...] feet. Previously recommended regular foot examinations - Visual Stylist is Dr. Marquez in [place] - Baseline PIH labs: 42/ 344/ 0.54/ [...] DM type 1, not at goal 03/08/2024 Encounters Date Type Department Care Team Description 08/24/2024 9:08 AM SERVICE DELIVERY DIRECTOR - 08/24/2024 11:59 PM SERVICE DELIVERY DIRECTOR Hospital Encounter [facility] [address] [place] [address] Juan Pablo Belcher MD Polcaro, Joseph, DO Discharge Disposition: Home or Self Care 08/24/2024 9:08 AM SERVICE DELIVERY DIRECTOR - 08/24/2024 11:59 PM SERVICE DELIVERY DIRECTOR Hospital Encounter [facility]/ EVALUATION UNIT [address] [place] [address] Kishore Small DO Discharge Disposition: Home or Self Care 08/24/2024 Travel 08/15/2024 Telephone [facility]/ [facility]ATION UNIT [facility] [place] [address] Sakina Garza RN MEDICATION REFILL 08/15/2024 Telephone [facility]/ [facility]ATION UNIT [facility] [place] [address]. [address] [place] [address] Linda Lopez Medication Request 08/14/2024 Refill [facility]/ [facility] UNIT [address] [place] [address]. [address] [place] [address] Sidney Gray MD Refill Request 08/14/2024 Refill [facility]ERNAL/ EVALUATION UNIT [address] [place] [address]. [address] [place] [address] Quirino Jhaveri MD Refill Request from Last 3 Months Immunizations Name Administration Dates Next Due INFLUENZA [...] and heating? Not hard at all 05/31/2024 [facility] Occup[facility] - Occupational Stress [...] place to sleep or slept in a skilled nursing (including now)? No 05/31/2024 [place] Depression Scale Answer Date Recorded [place] Depression Scale Total 3 06/03/2024 The thought of harming myself has occurred to me . Never 06/03/2024 Sex and Gender Information Value Date Recorded Sex Assigned at Not on file Gender Identity Not on file Sexual Orientation Not on file Last Filed Vital Signs Vital Sign Reading Time Taken Comments Blood Pressure 107/59 08/24/2024 9:21 AM SERVICE DELIVERY DIRECTOR Pulse 95 08/24/2024 9:21 AM SERVICE DELIVERY DIRECTOR Temperature 36.7 C (98 F) 06/30/2024 9:00 PM CDT Respiratory Rate 20 06/30/2024 9:00 PM CDT Oxygen Saturation 99% 06/30/2024 9:00 PM CDT Inhaled Oxygen Concentration - - Weight 44 kg (97 lb) 08/24/2024 9:21 AM SERVICE DELIVERY DIRECTOR Height 149.9 cm (4' 11 ) 05/31/2024 6:37 PM CDT Body Mass Index 19.59 05/31/2024 6:37 PM CDT Plan of Treatment Health Maintenance Due Date Last Done Comments HPV VACCINE (1 - 3-dose series) 2019 MENINGOCOCCAL (Group B) VACCINE (1 of 2 - Standard) 2020 HEPATITIS B VACCINE (1 of 3 - 19+ 3-dose series) 2023 PNEUMOCOCCAL VACCINE (1 of 2 - PCV) 2023 DIABETES RETINOPATHY SCREENING 03/08/2024 DIABETES-FOOT EXAM WITH MONOFILAMENT 03/08/2024 COVID-19 VACCINE ( - season) 2024 DEPRESSION SCREENING 09/20/2024 06/03/2024 DIABETES - URINE PROTEIN SCREENING 09/20/2024 DIABETES-HGB A1C 11/20/2024 05/23/2024, , 01/12/2024, Additional history exists CHLAMYDIA/GONORRHEA SCREENING 05/16/2025 05/16/2024, 11/10/2023 DIABETES-SERUM CREATININE 06/03/20252023, 05/31/2024, 05/23/2024, Additional history exists DTAP/TDAP/TD VACCINES (2 - Td or Tdap) 04/24/2034 04/24/2024 ZOSTER VACCINE (1 of 2) 2054 HEPATITIS C SCREENING Completed 11/10/2023 HIV SCREENING Completed 04/24/2024, 11/10/2023 INFLUENZA VACCINE Completed 08/24/2024, 11/19/2023 HIB VACCINE Aged Out No longer eligi ble based on patient's age to complete this topic MENINGOCOCCAL VACCINE Aged Out No ocle diana eligible based on patient's age to complete this topic Procedures Procedure Name Priority Date/Time Associated Diagnosis Comments URINALYSIS - POCT (IP) BEAKER INTERFACE Routine 08/24/2024 10:11 AM SERVICE DELIVERY DIRECTOR HCG URINE QUALITATIVE - POCT (IP) INTERFACED Routine 08/24/2024 9:31 AM SERVICE DELIVERY DIRECTOR GLUCOSE - POINT OF CARE Routine 08/24/2024 9:21 AM SERVICE DELIVERY DIRECTOR COMPREHENSIVE METABOLIC PANEL Routine 06/03/2024 9:47 AM CDT HEMOGLOBIN A1C Routine 05/23/2024 2:49 PM CDT Type 1 diabetes mellitus during in third trimester (HCC) CHLAMYDIA + GC AMPLIFIED PROBE Routine 05/16/2024 11:42 PM CDT HIV-1 HIV-2 ANTIBODY + HIV P24 AG PANEL Routine 04/24/2024 12:27 PM CDT Supervision of high risk in third trimester (HCC) HEPATITIS C ANTIBODY Routine 11/10/2023 2:55 PM SERVICE DELIVERY DIRECTOR Supervision of high risk , antepartum (HCC) from Last 3 Months or Most Recently Relevant to Health Maintenance Results * (ABNORMAL) URINALYSIS - POCT (IP) BEAKER INTERFACE (08/24/2024 10:11 AM SERVICE DELIVERY DIRECTOR) Color UA POCT Dark Yellow Straw, Yellow, Dark Yellow, Light Yellow 08/24/2024 10:14 AM SERVICE DELIVERY DIRECTOR [facility] Clarity UA POCT Clear Clear 10:[address] [facility] Specific [place] UA POCT >=1.030 1.005 - 1.030 08/24/2024 10:[address] [facility] pH UA POCT 5.5 5.0 - 8.0 pH 08/24/2024 10:[address] [facility] Protein UA POCT Trace(A) Negative 10:[address] [facility] Blood UA POCT 3+(A) Negative 08/24/2024 10:[address] [facility] Leukocyte UA POCT Negative Negative 08/24/2024 10:[address] [facility] Nitrite UA POCT Negative Negative 10:[address] [facility] Glucose UA POCT 3+(A) Negative 4 10:[address] [facility] Ketone UA POCT 1+(A) Negative 08/24/2024 10:[address] [facility] Bilirubin UA POCT Negative Negative 08/24/2024 10:[address] [facility] Urobilinogen UA POCT 0.2 0.1 - 1.0 EU/dL 08/24/2024 10:[address] [facility] Urine URINE / Unknown 08/24/2024 1 0:11 AM SERVICE DELIVERY DIRECTOR 08/24/2024 10:14 AM SERVICE DELIVERY DIRECTOR Kishore Small DO LAB - POINT OF CARE ORDERABLES [facility] [address] [place], [place] [id number] * HCG URINE QUALITATIVE - POCT (IP) INTERFACED (08/24/2024 9:31 AM SERVICE DELIVERY DIRECTOR) HCG Qual Urine Negative Negative 08/24/2024 9:38 AM SERVICE DELIVERY DIRECTOR [facility] Urine URINE / Unknown 08/24/2024 9 :31 AM SERVICE DELIVERY DIRECTOR 08/24/2024 9:38 AM SERVICE DELIVERY DIRECTOR Kishore Small LAB - POINT OF CARE ORDERABLES [facility] [address] [place] [phone] * (ABNORMAL) GLUCOSE - POINT OF CARE (08/24/2024 9:21 AM SERVICE DELIVERY DIRECTOR) Pathologist [facility] Glucose WB/POC 305(H) 70 - 99 mg/dL 08/24/2024 9:30 AM SERVICE DELIVERY DIRECTOR [facility] Specimen Type Cap Fingerstick 2023 9:30 AM SERVICE DELIVERY DIRECTOR [facility] Blood BLOOD SPECIMEN / Unknown 08/24/2024 9:21 AM SERVICE DELIVERY DIRECTOR 08/24/2024 9:30 AM SERVICE DELIVERY DIRECTOR Kishore HermanHigherNext LAB - POINT OF CARE ORDERABLES Performing Organization Address City/[facility]/ZIP Co de Phone Number [facility] [address] [place] [phone] * (ABNORMAL) COMPREHENSIVE METABOLIC PANEL (06/03/2024 9:47 AM CDT) Pathologist [facility] Glucose 124(H) 70 - 105 mg/dL 06/03/2024 10:14 AM CDT [facility] Sodium 137 136 - 145 mmol/L 06/03/2024 10:14 AM CDT [facility] Potassium 3.4(L) 3.5 - 5.1 mmol/L 06/03/2024 10:14 AM CDT [facility] Chloride 108(H) 98 - 107 mmol/L 06/03/2024 10:14 AM CDT [facility] CO2 21(L) 22 - 29 mmol/L 06/03/2024 10:14 AM CDT [facility] Calcium 7.7(L) 8.4 - 10.4 mg/dL 06/03/2024 10:14 AM T [facility] Anion Gap 8 6 - 16 mmol/L 06/03/2024 10:14 AM CDT [facility] BUN 14 5.3 - 18.7 mg/dL 06/03/2024 10:14 AM CDT [facility] Creatinine 0.70 0.57 - 1.11 mg/dL 06/03/2024 10:14 AM T [facility] Alkaline Phosphatase 66 40 - 150 U/L 06/03/2024 10:14 AM CDT [facility] ALT <6 0 - 55 U/L 06/03/2024 10:14 AM T [facility] AST 14 5 - 34 U/L 06/03/2024 10:14 AM [facility] Protein Total 4.3(L) 6.4 - 8.3 gm/dL 06/03/2024 10:14 AM T [facility] Albumin 1.8(L) 3.4 - 5.0 gm/dL 06/03/2024 10:14 AM [facility] Bilirubin Total 0.4 0.2 - 1.2 mg/dL 06/03/2024 10:14 AM [facility] eGFR by CKD-EPI >90 >=90 mL/min/1.7 3 m2 06/03/2024 10:14 AM [facility] Blood BLOOD SPECIMEN / Unknown Lab Venipuncture / Unknown 06/03/2024 9:47 AM CDT 06/03/2024 9:54 AM CDT Radha Nicolas MD LAB - CHEMISTRY [facility] Organization Address City/State/[facility] Co de Phone Number [facility] [address] [place] [address] * (ABNORMAL) HEMOGLOBIN A1C (05/23/2024 2:49 PM CDT) Hemoglobin A1c 7.5(H) <5.7 % 05/23/2024 3:45 PM CDT [facility] Estimated Average Glucose 169 mg/dL 05/23/2024 3:45 PM CDT [facility] Blood BLOOD SPECIMEN / Unknown Venipuncture / Unknown 05/23/2024 2:49 PM CDT 05/23/2024 3:27 PM CDT Narrative [facility] - 05/23/2024 3:45 PM CDT HbA1c [...] Felton MD LAB - CHEMISTRY [facility] Performing Organization Address City/State/[facility] de Phone Number [facility] [address] [place] [address] * CHLAMYDIA + GC AMPLIFIED PROBE (05/16/2024 11:42 PM CDT) Pathologist [facility] Chlamydia Amplified Probe Negative Negative 05/17/2024 8:07 PM CDT [facility] GC Amplified Probe Negative Negative 05/17/2024 8:07 PM CDT [facility] Other URINE / Unknown Collection / Unknown 05/16/2024 11:42 PM CDT 05/16/2024 11:56 PM CDT Narrative [facility] - 05/17/2024 8:07 PM CDT Results based on detection/no detection of ribosomal RNA by amplified method. Sidney Gray MD LAB - MICROBIO LOGY ORDERABLES [facility] [address] [place] [address], [facility] [phone] * HIV-1 HIV-2 ANTIBODY + HIV P24 AG PANEL (04/24/2024 12:27 PM CDT) HIV1/2 Ab + P24 Ag Non Reactive Non Reactive 04/24/2024 1:22 PM CDT [facility] Blood BLOOD SPECIMEN / Unknown Venipuncture / Unknown 04/24/2024 12:27 PM CDT 04/24/2024 12:40 PM CDT Narrative [facility] - 04/24/2024 1:22 PM CDT No Laboratory evidence of HIV infection. Sidney Gray MD LAB - CHEMISTR Y ORDERABLES Performing Organization Address City/[facility] Co de Phone Number [facility] [address] [place] [address] * HEPATITIS C ANTIBODY (11/10/2023 2:55 PM SERVICE DELIVERY DIRECTOR) HCV Antibody Screen Non Reactive Non Reactive 11/10/2023 4:00 PM SERVICE DELIVERY DIRECTOR [facility] Blood BLOOD SPECIMEN / Unknown Venipuncture / Unknown 11/10/2023 2:55 PM SERVICE DELIVERY DIRECTOR 11/10/2023 3:13 PM SERVICE DELIVERY DIRECTOR Narrative [facility] - 11/10/2023 4:00 PM SERVICE DELIVERY DIRECTOR Non Reactive - Antibodies to Hepatitis C virus (HCV) were not detected, result does not exclude early acute HCV infection. Eb Nye MD LAB - CHEMISTRY [facility] [address] [place] [address] from Last 3 Months or Most Recently [...]
--- OUTSIDE RECORDS SUMMARY | 2024-11-02 11:21 | XMS_ITS | Patient Health Summary ---
Author Organization [facility] Address [address] [place] [address] Care Team Providers Care Mechanical Field Engineer Name Role Phone Unavailable Primary Care Provider Unavailabl e Note from [facility],non-owned Affiliates and Associated Physician Practices is amultiple site organization consisting of ambulatory clinics and hospital sitesin [place], [place], [place] and [place]. This disclosure is being madepursuant to the Care Everywhere program and may not contain all information available regarding this patient. Last updated 18.[facility] Allergies * Diphenhydramine(Swelling) -Medium Criticality * Garlic(Rash) -High Criticality * Mushroom Extract Complex(Angioedema) -High Criticality * Peanut Butter Flavor(Anaphylaxis) -High Criticality,Inactive Medications * Be aware that medications may not be up to date on this document. Alwaysverify current medications with the patient. * Continuous Blood Gluc Transmit (Dexcom G6 Transmitter) [facility]Started 09/28/[place]23) as directed * insulin lispro (HumaLOG) 100 UNIT/ML vial(Started 12/01/2023) For continuous use in insulin pump. Total max daily dose = 166 units/day. 5 refills by 11/30/2024 * aspirin EC (Ecotrin) 81 MG tablet(Started 12/01/2023) Take 2 (two) tablets by mouth once daily 6 refills by 11/30/2024 * docusate sodium (Colace) 100 MG capsule(Started 12/03/2023) Take 1 (one) capsule by mouth 2 times daily Reasons: Constipation 1 refill by 12/02/2024 * Blood Glucose Monitoring Suppl (OneTouch Verio) w/Device KIT(Started 12/29/2023) Use 1 Each as directed * blood glucose (OneTouch Verio) test strip(Started 12/29/2023) Please supply strips to match meter to calibrate dexcom 5 refills by 12/28/2024 * Lancets (ONETOUCH DELICA PLUS 33G EXTRA FINE LANCET)(Started 12/29/2023) Please supply lancets to match lancing device best covered by insurance to calibrate dexcom 5 refills by 12/28/2024 * riboflavin 400 MG capsule(Started 01/10/2024) Take 1 (one) capsule by mouth once daily 4 refills by 01/09/2025 * plus iron (Natatab) 29-1 MG tablet(Started 02/02/2024) Take 1 (one) tablet by mouth once daily Reasons: 11 refills by 02/01/2025 * benzocaine, dental, (Orajel Maximum Strength) 20 % liquid(Started 03/01/2024) Take by mouth 4 times daily as needed for Pain 1 refill by 03/01/2025 * insulin glargine (Lantus/Semglee) 100 units/mL pen(Started 03/01/2024) For use if pump fails. Inject 10 units every AM and 10 units every PM. Space doses 12 hours apart. 4 refills by 03/01/2025 * Insulin Pen Needle (TechLite Pen Alden) 32G X 4 MM MISC(Started 03/01/2024) Use 1 Each 2 times daily 5 refills by 03/01/2025 * Nirmatrelvir&Ritonavir 300/100 20 x 150 MG & 10 x 100MG Oral Tablet Therapy Pack (Paxlovid)(Started 03/21/2024) Take two 150mg tablets (300mg) of nirmatrelvir and one tablet (100mg) of ritonavir together as a single dose by mouth twice daily for 5 days. Do not crush, chew, or cut in half. * ondansetron, disintegrating, (Zofran ODT) 4 MG tablet(Started 03/29/2024) Take 1 (one) tablet by mouth every 6 hours as needed for Nausea/Vomiting Allow tablet to dissolve on the tongue Reasons: Nausea and Vomiting in 1 refill by 03/29/2025 * docusate sodium (Colace) 100 MG capsule(Started 04/05/2024) Take 1 (one) capsule by mouth once daily 2 refills by 04/05/2025 * nitrofurantoin monohyd macro crystals (Macrobid) 100 MG capsule(Started 04/17/2024) Take 1 (one) capsule by mouth every 12 hours * calcium carbonate (Tums) 500 MG chew tablet Take 1 (one) tablet by mouth daily with food * famotidine (Pepcid) 20 MG tablet(Started 05/02/2024) Take 1 (one) tablet by mouth 2 times daily 4 refills by 05/02/2025 * Vit-Fe Fumarate-FA ( vitamin) 28-0.8 MG tablet(Started 05/02/2024) Take 1 (one) tablet by mouth once daily 11 refills by 05/02/2025 * insulin lispro (HumaLOG;ADMelog) 100 UNIT/ML pen(Started 10/06/2023) INJECT 10 UNITS UNDER THE SKIN THREE TIMES DAILY PRIOR TO MEALS IF BLOOD SUGAR OVER 150 * acetaminophen (Tylenol) 500 MG tablet Take 1 (one) tablet by mouth every 6 hours as needed * nitrofurantoin monohyd macro crystals (Macrobid) 100 MG capsule(Started 05/17/2024) Take 1 (one) capsule by mouth every 12 hours * nitrofurantoin monohyd macro crystals (Macrobid) 100 MG capsule(Started 05/17/2024) Take 1 (one) capsule by mouth once daily 1 refill by 05/17/2025 * polyethylene glycol 3350 (Miralax) 17 GM/SCOOP powder(Started 06/04/2024) Take 17 (seventeen) g by mouth once daily * ibuprofen (Motrin) 600 MG tablet(Started 06/04/2024) Take 1 (one) tablet by mouth every 6 hours as needed for Pain * oxyCODONE, immediate release, (Roxicodone) 5 MG tablet(Started 06/04/2024) Take 1 (one) tablet by mouth every 6 hours as needed for Pain * FLUoxetine (PROzac) 20 MG capsule(Started 08/24/2024) Take 1 (one) capsule by mouth once daily 2 refills by 08/24/2025 * norelgestromin-ethinyl estradiol (Ortho-Evra) 150-35 MCG/24HR patch(Started 08/24/2024) Apply 1 (one) patch to skin every 7 days 11 refills by 08/24/2025 * Continuous Glucose Sensor (Dexcom G7 Sensor) MISC(Started 08/24/2024) Use 1 Each continuous Active Problems Problem Noted Date Diagnosed Date Depression 05/31/2024 Type 1 diabetes mellitus dur ing in third trimester 05/31/2024 GBS (group B Streptococcus c arrier), +RV culture, currently 05/30/2024 Poor weight gain of 05/30/2024 Research study patient 05/30/2024 contractions 05/16/2024 Supervision of high risk in third trim lyndsay 04/04/2024 Type 1 diabetes mellitus in 04/04/2024 Poor dentition 04/04/2024 DM type 1, not at goal 03/08/2024 Immunizations * INFLUENZA VACCINE(Given 11/19/2023) * INFLUENZA VACCINE, TRIV. (FLUZONE; FLULAVAL; FLUARIX; AFLURIA TRIVALENT; 6MO+), 0.5 ML (IIV3)(Given 08/24/2024) * TDAP (7yrs+)(Given 04/24/2024) Social History Tobacco Use Types Packs/Day Years [...] and heating? Not hard at all 05/31/2024 [facility] [place] [facility] Occup[facility] - Occupational Stress [...] place to sleep or slept in a care home (including now)? No 05/31/2024 [place] Depression Scale Answer Date Recorded [place] Depression Scale Total 3 06/03/2024 The thought of harming myself has occurred to me . Never 06/03/2024 Sex and Gender Information Value Date Recorded Sex Assigned at Not on file Gender Identity Not on file Sexual Orientation Not on file Last Filed Vital Signs Vital Sign Reading Time Taken Comments Blood Pressure 107/59 08/24/2024 9:21 AM SENIOR QA AUTOMATION ENGINEER Pulse 95 08/24/2024 9:21 AM SENIOR QA AUTOMATION ENGINEER Temperature 36.7 C (98 F) 06/30/2024 9:00 PM CDT Respiratory Rate 20 06/30/2024 9:00 PM CDT Oxygen Saturation 99% 06/30/2024 9:00 PM CDT Inhaled Oxygen Concentration - - Weight 44 kg (97 lb) 08/24/2024 9:21 AM SENIOR QA AUTOMATION ENGINEER Height 149.9 cm (4' 11 ) 05/31/2024 6:37 PM CDT Body Mass Index 19.59 05/31/2024 6:37 PM CDT Procedures * URINALYSIS - POCT (IP) BEAKER INTERFACE(Performed 08/24/2024) * HCG URINE QUALITATIVE - POCT (IP) INTERFACED(Performed 08/24/2024) * GLUCOSE - POINT OF CARE(Performed 08/24/2024) * GLUCOSE - POINT OF CARE(Performed 06/30/2024) * IMAGING/RADIOLOGY/XRAY RESULTS ORDER(Performed 06/05/2024) * GLUCOSE - POINT OF CARE(Performed 06/04/2024) * GLUCOSE - POINT OF CARE(Performed 06/04/2024) * GLUCOSE - POINT OF CARE(Performed 06/04/2024) * GLUCOSE - POINT OF CARE(Performed 06/04/2024) * GLUCOSE - POINT OF CARE(Performed 06/04/2024) * GLUCOSE - POINT OF CARE(Performed 06/04/2024) * PREPARE RBC LEUKOREDUCED UNIT(Performed 06/04/2024) Performed for Type 1 diabetes mellitus during in third trimester (HCC) * GLUCOSE - POINT OF CARE(Performed 06/04/2024) * GLUCOSE - POINT OF CARE(Performed 06/03/2024) * GLUCOSE - POINT OF CARE(Performed 06/03/2024) * GLUCOSE - POINT OF CARE(Performed 06/03/2024) * GLUCOSE - POINT OF CARE(Performed 06/03/2024) * GLUCOSE - POINT OF CARE(Performed 06/03/2024) * GLUCOSE - POINT OF CARE(Performed 06/03/2024) * GLUCOSE - POINT OF CARE(Performed 06/03/2024) * GLUCOSE - POINT OF CARE(Performed 06/03/2024) * GLUCOSE - POINT OF CARE(Performed 06/03/2024) * GLUCOSE - POINT OF CARE(Performed 06/03/2024) * GLUCOSE - POINT OF CARE(Performed 06/03/2024) * COMPREHENSIVE METABOLIC PANEL(Performed 06/03/2024) * GLUCOSE - POINT OF CARE(Performed 06/03/2024) * GLUCOSE - POINT OF CARE(Performed 06/03/2024) * GLUCOSE - POINT OF CARE(Performed 06/03/2024) * GLUCOSE - POINT OF CARE(Performed 06/03/2024) * GLUCOSE - POINT OF CARE(Performed 06/03/2024) * CBC W/O DIFFERENTIAL(Performed 06/03/2024) * GLUCOSE - POINT OF CARE(Performed 06/03/2024) * GLUCOSE - POINT OF CARE(Performed 06/03/2024) * GLUCOSE - POINT OF CARE(Performed 06/03/2024) * GLUCOSE - POINT OF CARE(Performed 06/03/2024) * GLUCOSE - POINT OF CARE(Performed 06/03/2024) * GLUCOSE - POINT OF CARE(Performed 06/02/2024) * GLUCOSE - POINT OF CARE(Performed 06/02/2024) * GLUCOSE - POINT OF CARE(Performed 06/02/2024) * GLUCOSE - POINT OF CARE(Performed 06/02/2024) * GLUCOSE - POINT OF CARE(Performed 06/02/2024) * GLUCOSE - POINT OF CARE(Performed 06/02/2024) * GLUCOSE - POINT OF CARE(Performed 06/02/2024) * GLUCOSE - POINT OF CARE(Performed 06/02/2024) * GLUCOSE - POINT OF CARE(Performed 06/02/2024) * GLUCOSE - POINT OF CARE(Performed 06/02/2024) * GLUCOSE - POINT OF CARE(Performed 06/02/2024) * GLUCOSE - POINT OF CARE(Performed 06/02/2024) * PATHOLOGY TISSUE EXAM (STL)(Performed 06/02/2024) Performed for Arrest of dilation, delivered, current hospitalization ([facility]), Pre- existing type 1 diabetes mellitus during , antepartum ([facility]) * BLOOD GASES CORD SARITHA (ISTAT)(Performed 06/02/2024) * BLOOD GASES CORD ART (ISTAT)(Performed 06/02/2024) * SECTION (EMERGENCY)(Performed 06/02/2024) Performed for Arrest of dilation, delivered, current hospitalization ([facility]) * GLUCOSE - POINT OF CARE(Performed 06/02/2024) * GLUCOSE - POINT OF CARE(Performed 06/02/2024) * GLUCOSE - POINT OF CARE(Performed 06/02/2024) * GLUCOSE - POINT OF CARE(Performed 06/02/2024) * GLUCOSE - POINT OF CARE(Performed 06/02/2024) * GLUCOSE - POINT OF CARE(Performed 06/02/2024) * GLUCOSE - POINT OF CARE(Performed 06/02/2024) * GLUCOSE - POINT OF CARE(Performed 06/02/2024) * GLUCOSE - POINT OF CARE(Performed 06/02/2024) * GLUCOSE - POINT OF CARE(Performed 06/02/2024) * GLUCOSE - POINT OF CARE(Performed 06/01/2024) * GLUCOSE - POINT OF CARE(Performed 06/01/2024) * GLUCOSE - POINT OF CARE(Performed 06/01/2024) * GLUCOSE - POINT OF CARE(Performed 06/01/2024) * NEURAXIAL BLOCK(Performed 06/01/2024) * GLUCOSE - POINT OF CARE(Performed 06/01/2024) * GLUCOSE - POINT OF CARE(Performed 06/01/2024) * GLUCOSE - POINT OF CARE(Performed 06/01/2024) * GLUCOSE - POINT OF CARE(Performed 06/01/2024) * GLUCOSE - POINT OF CARE(Performed 06/01/2024) * GLUCOSE - POINT OF CARE(Performed 06/01/2024) * GLUCOSE - POINT OF CARE(Performed 06/01/2024) * GLUCOSE - POINT OF CARE(Performed 06/01/2024) * GLUCOSE - POINT OF CARE(Performed 06/01/2024) * GLUCOSE - POINT OF CARE(Performed 06/01/2024) * GLUCOSE - POINT OF CARE(Performed 06/01/2024) * GLUCOSE - POINT OF CARE(Performed 06/01/2024) * GLUCOSE - POINT OF CARE(Performed 06/01/2024) * GLUCOSE - POINT OF CARE(Performed 06/01/2024) * GLUCOSE - POINT OF CARE(Performed 06/01/2024) * GLUCOSE - POINT OF CARE(Performed 06/01/2024) * GLUCOSE - POINT OF CARE(Performed 05/31/2024) * GLUCOSE - POINT OF CARE(Performed 05/31/2024) * GLUCOSE - POINT OF CARE(Performed 05/31/2024) * URINE MICROSCOPIC ONLY REFLEX TO CULTURE(Performed 05/31/2024) * URINALYSIS REFLEX MICROSCOPIC REFLEX CULTURE(Performed 05/31/2024) * CULTURE URINE(Performed 05/31/2024) * GLUCOSE - POINT OF CARE(Performed 05/31/2024) * GLUCOSE - POINT OF CARE(Performed 05/31/2024) * GLUCOSE - POINT OF CARE(Performed 05/31/2024) * GLUCOSE - POINT OF CARE(Performed 05/31/2024) * TYPE + SCREEN PANEL(Performed 05/31/2024) * SYPHILIS ANTIBODY CASCADING REFLEX(Performed 05/31/2024) * HYDROXYBUTYRATE BETA(Performed 05/31/2024) * PHOSPHORUS BLOOD(Performed 05/31/2024) * MAGNESIUM BLOOD(Performed 05/31/2024) * COMPREHENSIVE METABOLIC PANEL(Performed 05/31/2024) * CBC W AUTO DIFFERENTIAL(Performed 05/31/2024) * GLUCOSE - POINT OF CARE(Performed 05/31/2024) * GLUCOSE - POINT OF CARE(Performed 05/30/2024) * URINALYSIS - POCT (IP) BEAKER INTERFACE(Performed 05/30/2024) * BIOPHYSICAL PROFILE W NST(Performed 05/30/2024) Performed for Type 1 diabetes mellitus in , third trimester ([facility]), Tobacco use * HEMOGLOBIN A1C(Performed 05/23/2024) Performed for Type 1 diabetes mellitus during in third trimester ([facility]) * COMPREHENSIVE METABOLIC PANEL(Performed 05/23/2024) Performed for Type 1 diabetes mellitus during in third trimester ([facility]) * GLUCOSE - POINT OF CARE(Performed 05/23/2024) * URINALYSIS - POCT (IP) BEAKER INTERFACE(Performed 05/23/2024) * BIOPHYSICAL PROFILE W NST(Performed 05/23/2024) Performed for Type 1 diabetes mellitus in , third trimester ([facility]), Tobacco use * LAB RESULTS ORDER(Performed 05/20/2024) * GLUCOSE - POINT OF CARE(Performed 05/17/2024) * GLUCOSE - POINT OF CARE(Performed 05/17/2024) * HYDROXYBUTYRATE BETA(Performed 05/17/2024) * COMPREHENSIVE METABOLIC PANEL(Performed 05/17/2024) * GLUCOSE - POINT OF CARE(Performed 05/17/2024) * GLUCOSE - POINT OF CARE(Performed 05/17/2024) * GLUCOSE - POINT OF CARE(Performed 05/17/2024) * PHOSPHORUS BLOOD(Performed 05/17/2024) * MAGNESIUM BLOOD(Performed 05/17/2024) * HYDROXYBUTYRATE BETA(Performed 05/17/2024) * COMPREHENSIVE METABOLIC PANEL(Performed 05/17/2024) * GLUCOSE - POINT OF CARE(Performed 05/17/2024) * TRICHOMONAS VAGINALIS AMPLIFIED PROBE(Performed 05/16/2024) * CHLAMYDIA + GC AMPLIFIED PROBE(Performed 05/16/2024) * GLUCOSE - POINT OF CARE(Performed 05/16/2024) * GLUCOSE - POINT OF CARE(Performed 05/16/2024) * URINE MICROSCOPIC ONLY(Performed 05/16/2024) * URINALYSIS REFLEX TO MICROSCOPIC NO CULTURE(Performed 05/16/2024) * CULTURE URINE(Performed 05/16/2024) * GLUCOSE - POINT OF CARE(Performed 05/16/2024) * CULTURE STREP B(Performed 05/16/2024) Performed for Type 1 diabetes mellitus during in third trimester ([facility]), contractions ([facility]) * TYPE + SCREEN PANEL(Performed 05/16/2024) * PHOSPHORUS BLOOD(Performed 05/16/2024) Performed for Type 1 diabetes mellitus during in third trimester ([facility]), contractions ([facility]) * MAGNESIUM BLOOD(Performed 05/16/2024) Performed for Type 1 diabetes mellitus during in third trimester ([facility]), contractions ([facility]) * HYDROXYBUTYRATE BETA(Performed 05/16/2024) Performed for Type 1 diabetes mellitus during in third trimester ([facility]), contractions ([facility]) * COMPREHENSIVE METABOLIC PANEL(Performed 05/16/2024) Performed for Type 1 diabetes mellitus during in third trimester ([facility]), contractions ([facility]) * CBC W AUTO DIFFERENTIAL(Performed 05/16/2024) Performed for Type 1 diabetes mellitus during in third trimester ([facility]), contractions ([facility]) * GLUCOSE - POINT OF CARE(Performed 05/16/2024) * URINALYSIS - POCT (IP) BEAKER INTERFACE(Performed 05/16/2024) * GLUCOSE - POINT OF CARE(Performed 05/16/2024) * BIOPHYSICAL PROFILE W NST(Performed 05/16/2024) Performed for Type 1 diabetes mellitus in , third trimester ([facility]), Tobacco use * GLUCOSE - POINT OF CARE(Performed 05/09/2024) * URINALYSIS - POCT (IP) BEAKER INTERFACE(Performed 05/09/2024) * BIOPHYSICAL PROFILE W NST(Performed 05/09/2024) Performed for Type 1 diabetes mellitus in , third trimester ([facility]), Tobacco use * CULTURE URINE(Performed 05/02/2024) Performed for Acute cystitis without hematuria * URINALYSIS - POCT (IP) BEAKER INTERFACE(Performed 05/02/2024) * BIOPHYSICAL PROFILE W NST(Performed 05/02/2024) Performed for Type 1 diabetes mellitus in , third trimester ([facility]), Tobacco use * PHOSPHORUS BLOOD(Performed 04/24/2024) Performed for Supervision of high risk in third trimester ([facility]), DM type 1, not at goal ([facility]) * MAGNESIUM BLOOD(Performed 04/24/2024) Performed for Supervision of high risk in third trimester ([facility]), DM type 1, not at goal ([facility]) * HYDROXYBUTYRATE BETA(Performed 04/24/2024) Performed for Supervision of high risk in third trimester ([facility]), DM type 1, not at goal ([facility]) * COMPREHENSIVE METABOLIC PANEL(Performed 04/24/2024) Performed for Supervision of high risk in third trimester ([facility]), DM type 1, not at goal ([facility]) * CBC W/O DIFFERENTIAL(Performed 04/24/2024) Performed for Supervision of high risk in third trimester ([facility]) * SYPHILIS ANTIBODY CASCADING REFLEX(Performed 04/24/2024) Performed for Supervision of high risk in third trimester ([facility]) * HIV-1 HIV-2 ANTIBODY + HIV P24 AG PANEL(Performed 04/24/2024) Performed for Supervision of high risk in third trimester ([facility]) * URINALYSIS - POCT (IP) BEAKER INTERFACE(Performed 04/24/2024) * GLUCOSE - POINT OF CARE(Performed 04/24/2024) * BIOPHYSICAL PROFILE W NST(Performed 04/24/2024) Performed for Type 1 diabetes mellitus in , third trimester ([facility]), Tobacco use * CULTURE URINE(Performed 04/05/2024) Performed for Supervision of high risk in third trimester ([facility]) * GLUCOSE - POINT OF CARE(Performed 04/05/2024) * URINALYSIS - POCT (IP) BEAKER INTERFACE(Performed 04/05/2024) * GLUCOSE - POINT OF CARE(Performed 03/29/2024) * SONOGRAM - COMPLETE(Performed 03/29/2024) * GLUCOSE - POINT OF CARE(Performed 03/09/2024) * GLUCOSE - POINT OF CARE(Performed 03/09/2024) * GLUCOSE - POINT OF CARE(Performed 03/09/2024) * GLUCOSE - POINT OF CARE(Performed 03/09/2024) * PHOSPHORUS BLOOD(Performed 03/09/2024) * MAGNESIUM BLOOD(Performed 03/09/2024) * COMPREHENSIVE METABOLIC PANEL(Performed 03/09/2024) * CBC W AUTO DIFFERENTIAL(Performed 03/09/2024) * GLUCOSE - POINT OF CARE(Performed 03/09/2024) * GLUCOSE - POINT OF CARE(Performed 03/09/2024) * GLUCOSE - POINT OF CARE(Performed 03/09/2024) * GLUCOSE - POINT OF CARE(Performed 03/08/2024) * URINALYSIS REFLEX TO MICROSCOPIC NO CULTURE(Performed 03/08/2024) * URINALYSIS REFLEX MICROSCOPIC REFLEX CULTURE(Performed 03/08/2024) * GLUCOSE - POINT OF CARE(Performed 03/08/2024) * GLUCOSE - POINT OF CARE(Performed 03/08/2024) * EKG 12-LEAD(Performed 03/08/2024) Performed for DM type 1, not at goal (HCC) * TYPE + SCREEN PANEL(Performed 03/08/2024) Performed for Encounter for anatomic survey (HCC) * HEMOGLOBIN A1C(Performed 03/08/2024) * LACTIC ACID BLOOD(Performed 03/08/2024) * MAGNESIUM BLOOD(Performed 03/08/2024) Performed for Encounter for anatomic survey (HCC) * HYDROXYBUTYRATE BETA(Performed 03/08/2024) Performed for Encounter for anatomic survey (HCC) * PHOSPHORUS BLOOD(Performed 03/08/2024) Performed for Encounter for anatomic survey ([facility]) * SYPHILIS ANTIBODY CASCADING REFLEX(Performed 03/08/2024) Performed for Encounter for anatomic survey (HCC) * COMPREHENSIVE METABOLIC PANEL(Performed 03/08/2024) Performed for Encounter for anatomic survey (HCC) * CBC W AUTO DIFFERENTIAL(Performed 03/08/2024) Performed for Encounter for anatomic survey (HCC) * GLUCOSE - POINT OF CARE(Performed 03/08/2024) * GLUCOSE - POINT OF CARE(Performed 03/08/2024) * URINALYSIS - POCT (IP) BEAKER INTERFACE(Performed 03/08/2024) * GLUCOSE - POINT OF CARE(Performed 03/01/2024) * URINALYSIS - POCT (IP) BEAKER INTERFACE(Performed 03/01/2024) * SONOGRAM - COMPLETE(Performed 03/01/2024) * URINALYSIS - POCT (IP) BEAKER INTERFACE(Performed 02/02/2024) * GLUCOSE - POINT OF CARE(Performed 02/02/2024) * SONOGRAM - COMPLETE(Performed 02/02/2024) * HEMOGLOBIN A1C(Performed 01/12/2024) Performed for Supervision of high risk , antepartum (HCC) * URINALYSIS - POCT (IP) BEAKER INTERFACE(Performed 01/12/2024) * URINALYSIS - POCT (IP) BEAKER INTERFACE(Performed 12/29/2023) * LAB RESULTS ORDER(Performed 12/26/2023) * URINALYSIS - POCT (IP) BEAKER INTERFACE(Performed 12/15/2023) * ANEUPLOIDY SCREENING(Performed 12/01/2023) * SONOGRAM - COMPLETE(Performed 11/24/2023) Performed for with uncertain viability, single or unspecified fetus ([facility]) * GLUCOSE - POINT OF CARE(Performed 11/24/2023) * URINALYSIS - POCT (IP) BEAKER INTERFACE(Performed 11/24/2023) * PROTEIN URINE TIMED QUANTITATIVE(Performed 11/24/2023) Performed for Supervision of high risk , antepartum ([facility]) * LAB RESULTS ORDER(Performed 11/16/2023) * URINALYSIS - POCT (IP) BEAKER INTERFACE(Performed 11/10/2023) * TYPE + SCREEN PANEL(Performed 11/10/2023) Performed for Supervision of high risk , antepartum ([facility]) * RUBELLA ANTIBODY IGG(Performed 11/10/2023) Performed for Supervision of high risk , antepartum ([facility]) * FERRITIN(Performed 11/10/2023) Performed for Supervision of high risk , antepartum ([facility]) * TSH REFLEX FREE T4(Performed 11/10/2023) Performed for Supervision of high risk , antepartum ([facility]) * HEMOGLOBIN A1C(Performed 11/10/2023) Performed for Supervision of high risk , antepartum ([facility]) * PROTEIN CREATININE RATIO URINE RANDOM PNL(Performed 11/10/2023) Performed for Supervision of high risk , antepartum ([facility]) * COMPREHENSIVE METABOLIC PANEL(Performed 11/10/2023) Performed for Supervision of high risk , antepartum ([facility]) * SYPHILIS ANTIBODY CASCADING REFLEX(Performed 11/10/2023) Performed for Supervision of high risk , antepartum ([facility]) * HEPATITIS C ANTIBODY(Performed 11/10/2023) Performed for Supervision of high risk , antepartum ([facility]) * HEPATITIS B SURFACE ANTIGEN W RFLX CONFIRMATION(Performed 11/10/2023) Performed for Supervision of high risk , antepartum ([facility]) * HIV-1 HIV-2 ANTIBODY + HIV P24 AG PANEL(Performed 11/10/2023) Performed for Supervision of high risk , antepartum ([facility]) * CBC W AUTO DIFFERENTIAL(Performed 11/10/2023) Performed for Supervision of high risk , antepartum ([facility]) * TRICHOMONAS VAGINALIS AMPLIFIED PROBE(Performed 11/10/2023) Performed for Supervision of high risk , antepartum ([facility]) * CHLAMYDIA + GC AMPLIFIED PROBE(Performed 11/10/2023) Performed for Supervision of high risk , antepartum ([facility]) * CULTURE URINE(Performed 11/10/2023) Performed for Supervision of high risk , antepartum ([facility]) * SONOGRAM - COMPLETE(Performed 11/10/2023) Performed for Encounter to establish gestational age using ultrasound ([facility]) Results * (ABNORMAL) URINALYSIS - POCT () BEAKER INTERFACE (08/24/2024 10:11 AM SENIOR QA AUTOMATION ENGINEER) Only the most recent of16 resultswithin the time period is included. Color UA POCT Dark Yellow Straw, Yellow, Dark Yellow, Light Yellow 08/24/2024 10:14 AM SENIOR QA AUTOMATION ENGINEER [facility] Clarity UA POCT Clear Clear 10:14 AM SENIOR QA AUTOMATION ENGINEER [facility] LABORATORY Specific [place] UA POCT >=1.030 1.005 - 1.030 08/24/2024 10:14 AM SENIOR QA AUTOMATION ENGINEER [facility] pH UA POCT 5.5 5.0 - 8.0 pH 08/24/2024 10:[address] [facility] Protein UA POCT Trace(A) Negative 10:14 AM SENIOR QA AUTOMATION ENGINEER [facility] Blood UA POCT 3+(A) Negative 08/24/2024 10:14 AM SENIOR QA AUTOMATION ENGINEER [facility] Leukocyte UA POCT Negative Negative 08/24/2024 10:14 AM SENIOR QA AUTOMATION ENGINEER [facility] Nitrite UA POCT Negative Negative 10:14 AM SENIOR QA AUTOMATION ENGINEER [facility] Glucose UA POCT 3+(A) Negative 10:14 AM SENIOR QA AUTOMATION ENGINEER [facility] Ketone UA POCT 1+(A) Negative 08/24/2024 10:14 AM SENIOR QA AUTOMATION ENGINEER [facility] Bilirubin UA POCT Negative Negative 08/24/2024 10:14 AM SENIOR QA AUTOMATION ENGINEER [facility] Urobilinogen UA POCT 0.2 0.1 - 1.0 EU/dL 08/24/2024 10:[address] [facility] Urine URINE / Unknown 08/24/2024 1 0:11 AM SENIOR QA AUTOMATION ENGINEER 08/24/2024 10:14 AM SENIOR QA AUTOMATION ENGINEER Kishore Small DO LAB - POINT OF CARE ORDERABLES Performing Organization Address City/[facility]/ZIP Co de Phone Number [facility] [address] [place] [phone] * HCG URINE QUALITATIVE - POCT (IP) INTERFACED (08/24/2024 9:31 AM SENIOR QA AUTOMATION ENGINEER) HCG Qual Urine Negative Negative 08/24/2024 9:38 AM SENIOR QA AUTOMATION ENGINEER [facility] Urine URINE / Unknown 08/24/2024 9 :31 AM SENIOR QA AUTOMATION ENGINEER 08/24/2024 9:38 AM SENIOR QA AUTOMATION ENGINEER [facility] - POINT OF CARE ORDERABLES Performing Organization Address [facility] de Phone Number [facility] [address] [place] [address] [phone] * (ABNORMAL) GLUCOSE - POINT OF CARE (08/24/2024 9:21 AM SENIOR QA AUTOMATION ENGINEER) Only the most recent of112 resultswithin the time period is included. Glucose WB/POC 305(H) 70 - 99 mg/dL 08/24/2024 9:30 AM SENIOR QA AUTOMATION ENGINEER [facility] Specimen Type Cap Fingerstick 2023 9:30 AM SENIOR QA AUTOMATION ENGINEER [facility] Blood BLOOD SPECIMEN / Unknown 08/24/2024 9:21 AM SENIOR QA AUTOMATION ENGINEER 08/24/2024 9:30 AM SENIOR QA AUTOMATION ENGINEER Kishore Small LAB - POINT OF CARE ORDERABLES Performing Organization Address [facility] Co de Phone Number [facility] [address] [place] [phone] * IMAGING RADIOLOGY XRAY RESULTS ORDER (06/05/2024 6:10 PM CDT) Anatomical Region Laterality Modality Other Narrative 06/05/2024 6:10 PM CDT Ordered by an unspecified provider. Scanned Document IMAGING * PREPARE (CROSSMATCH) RBC UNIT(S), 2 Units (06/04/2024 1:41 AM CDT) Unit Description AS1 LR PRBC [facility] Unit ABO A [facility] Unit Rh POS [facility] Product Number R02 [facility] Unit Donor # [id number] [facility] BLOOD [facility] LAB Unit Status released [facility] Product Code [id number] [facility] Blood Type Barcode 6200 [facility] Expiration Date S [facility] Unit Description AS1 LR PRBC [facility] Unit ABO A [facility] Unit Rh POS [facility] Product Number R02 [facility] Unit Donor # [id number] [facility] BLOOD [facility] LAB Unit Status released [facility] OD [facility]ANK LAB Product Code [id number] [facility]OD [facility]ANK LAB Blood Type Barcode 6200 [facility] Expiration Date S [facility] Blood Bank BLOOD SPECIMEN / Unknown 05/31/2024 4:33 PM CDT John Mckeon MD LAB - BLOOD BANK ORD ERABLES [facility] [address] [phone] * (ABNORMAL) COMPREHENSIVE METABOLIC PANEL (06/03/2024 9:47 AM CDT) Only the most recent of10 resultswithin the time period is included. Glucose 124(H) 70 - 105 mg/dL 06/03/2024 10:14 AM CDT [facility] Sodium 137 136 - 145 mmol/L 06/03/2024 10:14 AM CDT [facility] Potassium 3.4(L) 3.5 - 5.1 mmol/L 06/03/2024 10:14 AM CDT [facility] Chloride 108(H) 98 - 107 mmol/L 06/03/2024 10:14 AM CDT [facility] CO2 21(L) 22 - 29 mmol/L 06/03/2024 10:14 AM CDT [facility] Calcium 7.7(L) 8.4 - 10.4 mg/dL 06/03/2024 10:14 AM CDT [facility] Anion Gap 8 6 - 16 mmol/L 06/03/2024 10:14 AM CDT [facility] BUN 14 5.3 - 18.7 mg/dL 06/03/2024 10:14 AM CDT [facility] Creatinine 0.70 0.57 - 1.11 mg/dL 06/03/2024 10:14 AM CDT [facility] Alkaline Phosphatase 66 40 - 150 U/L 06/03/2024 10:14 AM CDT [facility] ALT <6 0 - 55 U/L 06/03/2024 10:14 AM CDT [facility] AST 14 5 - 34 U/L 06/03/2024 10:14 AM [facility] Protein Total 4.3(L) 6.4 - 8.3 gm/dL 06/03/2024 10:14 AM [facility] Albumin 1.8(L) 3.4 - 5.0 gm/dL 06/03/2024 10:14 AM [facility] Bilirubin Total 0.4 0.2 - 1.2 mg/dL 06/03/2024 10:14 AM [facility] eGFR by CKD-EPI >90 >=90 mL/min/1.7 3 m2 06/03/2024 10:14 AM [facility] Blood BLOOD SPECIMEN / Unknown Lab Venipuncture / Unknown 06/03/2024 9:47 AM CDT 06/03/2024 9:54 AM CDT Radha Nicolas MD LAB - CHEMISTRY [facility] Organization Address City/State/ZIP Co de Phone Number [facility] [address] [place] [address] * (ABNORMAL) CBC W/O DIFFERENTIAL (06/03/2024 5:04 AM CDT) Only the most recent of2 resultswithin the time period is included. [facility] Signature WBC 10.8(H) 4.0 - 10.7 x10E9/L 06/03/2024 6:20 AM [facility] RBC Count 3.31(L) 3.90 - 5.20 x10E12/L 06/03/2024 6:20 AM CDT [facility] Hemoglobin 9.3(L) 11.9 - 15.8 g/dL 06/03/2024 6:20 AM CDT [facility] Hematocrit 27.3(L) 34.8 - 46.1 % 06/03/2024 6:20 AM CDT [facility] MCV 82.5 80.0 - 98.0 fL 06/03/2024 6:20 AM CDT [facility] MCH 28.1 26.7 - 33.6 pg 06/03/2024 6:20 AM CDT [facility] MCHC 34.1 31.7 - 36.3 g/dL 06/03/2024 6:20 AM CDT [facility] RDW-CV 11.9 11.3 - 14.8 % 06/03/2024 6:20 AM CDT [facility] Platelet Count 215 150 - 420 x10E9/L 06/03/2024 6:20 AM CDT [facility] MPV 11.0 7.8 - 11.4 fL 06/03/2024 6:20 AM CDT [facility] Blood BLOOD SPECIMEN / Unknown Lab Venipuncture / Unknown 06/03/2024 5:04 AM CDT 06/03/2024 6:07 AM CDT Lizet Sanchez MD LAB - HEMATOLOGY ORD ERABLES Performing Organization Address City/State/[facility] Co de Phone Number [facility] [address] [place] [address] * PATHOLOGY TISSUE EXAM (STL) (06/02/2024 10:16 AM CDT) Case Report Surgical Pathology Report Case: [id number] Authorizing Provider: Radha Nicolas MD Collected: 06/02/2024 10:16 AM Ordering Location: [facility] 5 LDR Received: 06/05/2024 10:44 AM Pathologist: Sakina Rios MD Specimen: Placenta 3rd Trimester 06/06/2024 2:31 PM CDT [facility] Final Diagnosis Placenta, delivery - Mature placenta - 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 Procedure: section. 06/06/2024 2:31 PM [facility] Gross Description The specimen is identified with the patient's name and date of . Received fresh and placed in formalin, specimen A, placenta is a round placental disc with attached umbilical cord and membranes. The umbilical cord is inserted eccentrically, 2.0 cm from margin, 15.5 cm long and 1.1 cm diameter. The cord is trivascular and and normal coiled. The membranes insert marginally and are love-pink and opaque. The surface is blue-purple with normal vasculature. The maternal surface is centrally disrupted but appears complete with coalescing red-brown cotyledons. The placental disc is 395 g, 15.5 x 15.0 x 3.5 cm. Sectioning shows red-purple and spongy cut surfaces,. Biophysics Scientist sections submitted as follows: A1-umbilical cord and membrane roll, [id number], IKD 06/06/2024 2:31 PM [facility] Microscopic Description Microscopic examination substantiates the above diagnosis. 06/06/2024 2:31 PM [facility] Pathologist Location at [facility] 06/06/2024 2:31 PM [facility] Disclaimer All histochemical and/or immunohistochemical results are interpreted with controls that demonstrate appropriate staining reactions before reporting results. Note on use of immunocytochemistry reagents: This test was developed and its performance characteristic determined by [facility], Department of Laboratory Medicine. It has not been cleared or approved by the U.S. Food and Drug Administration (FDA). The FDA has determined that such clearance or approval is not necessary. The test is used for clinical purpose. It should not be regarded as investigational or for research. This laboratory is certified to perform high complexity testing. The performance characteristics of the IHC/HARI assays have been validated on formalin-fixed paraffin embedded tissues only. The assays have not been validated on decalcified tissues. Results should be interpreted with caution. 06/06/2024 2:31 PM CDT [facility] Embedded Images 06/06/2024 2:31 PM CDT [facility] Pathology/Cytology ENTIRE PLACENTA / Unknown 06/02/2024 10:16 AM CDT 06/05/2024 10:44 AM CDT Comment:Pre-op diagnosis: Arrest of dilation, delivered, current hospitalization ([facility]) [O62.1] Radha Nicolas MD LAB - PATHOLOGY/CYTO LOGY ORDERABLES [facility] [address] [place] [address] * (ABNORMAL) BLOOD GASES CORD SARITHA (ISTAT) (06/02/2024 10:05 AM CDT) pH Cord Venous POCT 7.27(L) 7.28 - 7.40 pH 06/02/2024 10:14 AM [facility] pCO2 Cord Venous POCT 50.0(H) 35 - 45 mm hg 06/02/2024 10:14 AM T [facility] pO2 Cord Venous POCT 16(L) 22 - 33 mm hg 06/02/2024 10:14 AM CDT [facility] HCO3 Cord Arterial POCT 23.2 22 - 24 mmol/L 06/02/2024 10:14 AM T [facility] BE Cord Venous POCT Calc -4 -6.4 - 1.6 mmol/L 06/02/2024 10:14 AM [facility] TCO2 Cord Venous POCT 25 22 - 30 mmol/L 06/02/2024 10:14 AM [facility] O2 Saturation % Cord Venous Calc POCT 18 % 06/02/2024 10:14 AM CDT [facility] Site CORD SARITHA 06/02/2024 10:14 AM T [facility] Sample iSTAT CORD SARITHA 06/02/2024 10:14 AM CDT [facility] Blood CORD BLOOD SPECIMEN / Unknown 06/02/2024 10:05 AM CDT 06/02/2024 10:14 AM CDT Radha Nicolas MD LAB - POINT OF CARE ORDERABLES [facility] [address] [place] [phone] * (ABNORMAL) BLOOD GASES CORD ART (ISTAT) (06/02/2024 10:01 AM CDT) pH Cord Arterial POCT 7.19(L) 7.20 - 7.34 pH 06/02/2024 10:14 AM CDT [facility] pCO2 Cord Arterial POCT 66.8(H) 45 - 55 mm hg 06/02/2024 10:14 AM CDT [facility] pO2 Cord Arterial POCT <15 12 - 25 mm hg 06/02/2024 10:14 AM CDT [facility] HCO3 Cord Arterial POCT 25.5(H) 22 - 24 mmol/L 06/02/2024 10:14 AM CDT [facility] BE Cord Arterial POCT -5(L) -2.9 - 8.3 mmol/L 06/02/2024 10:14 AM CDT [facility] TCO2 Cord Arterial POCT 27 mmol/L 06/02/2024 10:14 AM CDT [facility] O2 Saturation Cord Art % Calc POCT 7 % 06/02/2024 10:14 AM CDT [facility] Site CORD ART 06/02/2024 10:14 AM CDT [facility] Sample iSTAT CORD ART 06/02/2024 10:14 AM CDT [facility] Blood CORD BLOOD SPECIMEN / Unknown 06/02/2024 10:01 AM CDT 06/02/2024 10:14 AM CDT Radha Nicolas MD LAB - POINT OF CARE ORDERABLES Performing Organization Address City/[facility]/ZIP Co de Phone Number [facility] [address] [place] [phone] * EPIDURAL BLOCK PERF (06/01/2024 6:34 PM CDT) Narrative Wilma Barraza APRN-SALT PLANT OPERATOR - 06/01/2024 6:34 PM CDT Wilma Barraza APRN-SALT PLANT OPERATOR 06/01/2024 6:34 PM Neuraxial Block Note Pre-Procedure: Procedure Name: Neuraxial Block Patient Location: OB Indications: labor analgesia Pre-Anesthetic Checklist: Patient identified, IV Checked, Risks and benefits discussed, Surgical consent verified, Monitors and equipment, Site examined, Pre-op evaluation done, Time-out performed, Informed consent obtained, Questions answered/anesthesia questions answered and Allergies reviewed Anticoagulation/ Anti-thrombosis status confirmed? Yes Supplemental O2: room air Monitors: BP and continuous pluse ox Patient Condition: awake Patient Sedated? No Procedure: Block Type: Epidural Prep: Betadine Sterile Field: mask, cap/hat, sterile established and sterile gloves Approach: midline Skin was localized? Yes Skin localized with: lidocaine (XYLOCAINE) 1 % injection - Infiltration, Back 5 mL - 06/01/2024 6:24:00 PM Epidural Block: Is this procedure for postop pain? No Needle Type: Tuohy Needle gauge: 18 G Needle length: 90 mm Placement Site: L3-L4 Number of Attempts: 1 Loss of Resistance: 7 air Catheter length at skin (cm): 12 CSF Aspirated from catheter: No Blood Aspirated: No Test Dose: lidocaine 1.5% with 1-200,000 epinephrine 3 mL Test Dose Response: No Epidural Infusion Medications: Ropivacaine: 0.2% with Fentanyl 2mcg/mL in NS , 150 cc (mL) at 12 mL/hr Degree of difficulty: none Procedure Tolerance: tolerated well Sensory Level: T10 Motor Blockade: Yes Position post procedure: head of bed elevated 30 degrees, left uterine displacement Vital Signs: Vital sings monitored and stable throughout. See anesthesia record for details., Vital signs moniitored and stable throughout. See nursing vitals flowsheet for details., heart tones monitored and stable throughout. Staff: Anesthesia Provider: Wilma Barraza APRN-SALT PLANT OPERATOR - performed the procedure Additional Notes: Called to room for epidural placement. 5 cc local used for infiltration. Epidural placed without complications and pt getting comfortable. John Mckeon MD GENERAL ANESTHESIA O RDERABLES * (ABNORMAL) URINE MICROSCOPIC ONLY REFLEX TO CULTURE (05/31/2024 9:25 PM CDT) Reflex Status Culture to follow 05/31/2024 9:44 PM CDT [facility] RBC UA 6-10(A) 0 - 5 # /hpf 05/31/2024 9:44 PM CDT [facility] WBC UA >100(A) 0 - 5 # /hpf 05/31/2024 9:44 PM CDT [facility] Bacteria UA Trace(A) None Seen 05/31/2024 9:44 PM CDT [facility] Squamous Epithelial Cells 11-20(A) 0 - 5 /hpf 05/31/2024 9:44 PM CDT [facility] Mucus UA 2+ /LPF 05/31/2024 9:44 PM CDT [facility] Urine URINE SPECIMEN OBTAINED BY CLEAN CATCH PROCEDURE / Unknown Collection / Unknown 05/31/2024 9:25 PM CDT 05/31/2024 9:36 PM CDT Narrative [facility] - 05/31/2024 9:44 PM CDT Radha Nicolas MD LAB - URINALYSIS ORD ERABLES [facility] [address] [place] [address] * (ABNORMAL) URINALYSIS REFLEX MICROSCOPIC REFLEX CULTURE (05/31/2024 9:25 PM CDT) Only the most recent of2 resultswithin the time period is included. Color UA Demetra(A) Straw, Yellow 05/31/2024 9:42 PM CDT [facility] Clarity UA Cloudy(A) Clear 05/31/2024 9:42 PM CDT [facility] Glucose UA 1+(A) Negative 05/31/2024 9:42 PM CDT [facility] Bilirubin UA Negative Negative 05/31/2024 9:42 PM CDT [facility] Ketone UA 1+(A) Negative 05/31/2024 9:42 PM CDT [facility] Specific Bahama UA 1.030 1.005 - 1.030 05/31/2024 9:42 PM CDT [facility] Blood UA Negative Negative 05/31/2024 9:42 PM CDT [facility] pH UA 5.0 5.0 - 8.0 pH 05/31/2024 9:42 PM CDT [facility] Protein UA 1+(A) Negative 05/31/2024 9:42 PM CDT [facility] Urobilinogen UA 2.0(A) Negative mg/dL 05/31/2024 9:42 PM CDT [facility] Nitrite UA Negative Negative 05/31/2024 9:42 PM CDT [facility] Leukocyte UA 3+(A) Negative 05/31/2024 9:42 PM CDT [facility] Urine Microscopy Urine microscopy to follow 05/31/2024 9:42 PM CDT [facility] Reflex Status Culture to follow 05/31/2024 9:42 PM CDT [facility] Urine URINE SPECIMEN OBTAINED BY CLEAN CATCH PROCEDURE / Unknown Collection / Unknown 05/31/2024 9:25 PM CDT 05/31/2024 9:36 PM CDT Narrative [facility] - 05/31/2024 9:42 PM CDT Radha Nicolas MD LAB - URINALYSIS ORD ERABLES Performing Organization Address City/[facility]/ZIP Co de Phone Number [facility] [address] [place] [address] * CULTURE URINE (05/31/2024 9:25 PM CDT) Only the most recent of5 resultswithin the time period is included. Culture Urine No growth (<100 CFU/mL) KONRAD 06/02/2024 7:35 AM CDT [facility] Urine URINE SPECIMEN OBTAINED BY CLEAN CATCH PROCEDURE / Unknown Collection / Unknown 05/31/2024 9:25 PM CDT 05/31/2024 9:36 PM CDT Radha Nicolas MD LAB - MICROBIOLOGY O RDERABLES [facility] [address] [place] [address], [facility] [phone] * SYPHILIS ANTIBODY CASCADING REFLEX (05/31/2024 4:18 PM CDT) Only the most recent of4 resultswithin the time period is included. Treponema pallidum Antibody Non Reactive Non Reactive 05/31/2024 5:15 PM CDT [facility] Comment: No Laboratory evidence of syphilis infection. Note: Circulating antibodies may be low or undetectable in early infection. If recent exposure is suspected, re-draw sample in 2-4 weeks and repeat testing. Blood BLOOD SPECIMEN / Unknown Venipuncture / Unknown 05/31/2024 4:18 PM CDT 05/31/2024 4:34 PM CDT Radha Nicolas MD LAB - SEROLOGY ORDER ROSEANNA Performing Organization Address [facility] Co de Phone Number [facility] [address] [place] [phone] * HYDROXYBUTYRATE BETA (05/31/2024 4:18 PM CDT) Only the most recent of6 resultswithin the time period is included. Beta-Hydroxybu tyrate <0.50 <0.50 mmol/L 05/31/2024 5:04 PM CDT [facility] Blood BLOOD SPECIMEN / Unknown Venipuncture / Unknown 05/31/2024 4:18 PM CDT 05/31/2024 4:33 PM CDT Narrative [facility] - 05/31/2024 5:04 PM CDT Results >1.5 mmol/L may be indicative of diabetic ketoacidosis. Use in conjunction with Serum Glucose levels. Radha Nicolas MD LAB - CHEMISTRY ORDE RABLES Performing Organization Address [facility] de Phone Number [facility] [address] [place] [address] * TYPE + SCREEN PANEL (05/31/2024 4:18 PM CDT) Only the most recent of4 resultswithin the time period is included. ABO Rh A POS 05/31/2024 5:10 PM CDT [facility] Comment:History checked. Antibody Screen NEG 5:10 PM CDT [facility] Blood Bank BLOOD SPECIMEN / Unknown Venipuncture / Unknown 05/31/2024 4:18 PM CDT 05/31/2024 4:33 PM CDT Radha Nicolas MD LAB - BLOOD BANK ORD ERABLES [facility] [address] [place] [address], [facility] [phone] * CBC W AUTO DIFFERENTIAL (05/31/2024 4:18 PM CDT) Only the most recent of5 resultswithin the time period is included. WBC 5.6 4.0 - 10.7 x10E9/L 05/31/2024 4:39 PM CDT [facility] RBC Count 4.55 3.90 - 5.20 x10E12/L 05/31/2024 4:39 PM CDT [facility] Hemoglobin 12.5 11.9 - 15.8 g/dL 05/31/2024 4:39 PM CDT [facility] Hematocrit 37.7 34.8 - 46.1 % 05/31/2024 4:39 PM CDT [facility] MCV 82.9 80.0 - 98.0 fL 05/31/2024 4:39 PM CDT [facility] MCH 27.5 26.7 - 33.6 pg 05/31/2024 4:39 PM CDT [facility] MCHC 33.2 31.7 - 36.3 g/dL 05/31/2024 4:39 PM CDT [facility] RDW-CV 11.8 11.3 - 14.8 % 05/31/2024 4:39 PM CDT [facility] Platelet Count 250 150 - 420 x10E9/L 05/31/2024 4:39 PM CDT [facility] MPV 10.9 7.8 - 11.4 fL 05/31/2024 4:39 PM CDT [facility] Neutrophil % 64.2 41.0 - 74.0 % 05/31/2024 4:39 PM CDT [facility] Lymphocyte % 26.7 17.0 - 47.0 % 05/31/2024 4:39 PM CDT [facility] Monocyte % 7.8 3.0 - 11.0 % 05/31/2024 4:39 PM CDT [facility] Eosinophil % 0.2 0.0 - 7.0 % 05/31/2024 4:39 PM CDT [facility] Basophil % 0.4 0.0 - 1.6 % 05/31/2024 4:39 PM CDT [facility] Immature Granulocytes % 0.7 0.0 - 1.0 % 05/31/2024 4:39 PM CDT [facility] Neutrophil Absolute 3.61 1.60 - 7.50 x10E9/L 05/31/2024 4:39 PM CDT [facility] Lymphocyte Absolute 1.50 1.00 - 4.40 x10E9/L 05/31/2024 4:39 PM CDT [facility] Monocyte Absolute 0.44 0.15 - 1.00 x10E9/L 05/31/2024 4:39 PM CDT [facility] Eosinophil Absolute 0.01 0.00 - 0.60 x10E9/L 05/31/2024 4:39 PM CDT [facility] Basophil Absolute 0.02 0.00 - 0.13 x10E9/L 05/31/2024 4:39 PM CDT [facility] Blood BLOOD SPECIMEN / Unknown Venipuncture / Unknown 05/31/2024 4:18 PM CDT 05/31/2024 4:33 PM CDT Radha Nicolas MD LAB - HEMATOLOGY ORD ERABLES Performing Organization Address City/[facility]/ZIP Co de Phone Number [facility] [address] [place], [place] [id number] * PHOSPHORUS BLOOD (05/31/2024 4:18 PM CDT) Only the most recent of6 resultswithin the time period is included. Phosphorus 2.8 2.3 - 4.7 mg/dL 05/31/2024 5:04 PM CDT [facility] Blood BLOOD SPECIMEN / Unknown Venipuncture / Unknown 05/31/2024 4:18 PM CDT 05/31/2024 4:33 PM CDT Radha Nicolas MD LAB - CHEMISTRY ORDKarina RAMIREZ [facility] [address] [place] [address] * MAGNESIUM BLOOD (05/31/2024 4:18 PM CDT) Only the most recent of6 resultswithin the time period is included. Magnesium 1.7 1.7 - 2.3 mg/dL 05/31/2024 5:04 PM CDT [facility] Blood BLOOD SPECIMEN / Unknown Venipuncture / Unknown 05/31/2024 4:18 PM CDT 05/31/2024 4:33 PM CDT Radha Nicolas MD LAB - CHEMISTRY LOUIS RAMIREZ [facility] Organization Address City/State/ZIP Co de Phone Number [facility] [address] [place] [address] * BIOPHYSICAL PROFILE W NST (05/30/2024 2:06 PM CDT) Only the most recent of6 resultswithin the time period is included. Anatomical Region Laterality Modality Other 05/30/2024 2:06 PM CDT Narrative 05/30/2024 4:01 PM CDT [facility] PHONE: FAX: Pat. Name: GRACE ROSE. No: [id number] Study Date: 05/30/2024 2:06pm , Age: 09 2005, 18 Pregnancies: 2, Para 0010 Height: 60 in Weight: 109 lb LMP: 08/22/2023 GA by LMP: 40w2d GA by Base: 36w1d CLARISSA: 06/26/2024 GA Selected: 36w1d (From [facility]) CLARISSA: 06/26/2024 Referring MD: MD Bharath, [facility] Unix Manager: Lary Garduno RDMS CPT4: 60097,51360 BMI: 21.29 Hist/Ind: Type 1 DM- Uncontrolled NIPT: LR, female Hypertension Tobacco use Heart Rate: 160 bpm Amniotic Fluid Index: 26.7cm (07.7-24.9)* Q1: 10.0cm Q2: 6.4cm Q3: 5.7cm Q4: 4.6cm Biophysical Profile: 06/29 Breathin Tone: 2 NST: 2 Movement: 2 AFV: 2 PROCEDURE, TECHNIQUE Technique: transabdominal EVAL, PLACENTA Presentation: cephalic Placenta: anterior Heart Rate: 160 bpm Amniotic Fluid Volume: normal CLINICAL SUMMARY A single fetus is seen in cephalic presentation. The amniotic fluid volume is within normal limits. The FHR baseline is 135 bpm during today's reactive NST. The FHR variability was moderate. IMPRESSION: Single, live, intrauterine at 36w1d Amniotic fluid volume: upper limits of normal Biophysical profile: Reassuring RECOMMEND: Continue weekly BPP with twice weekly NST testing growth assessment in 2-3 weeks Thank you for allowing us the opportunity to care for your patient. Li Flores MD <Electronic Signature> 05/30/2024 03:59pm Quirino Jhaveri MD [facility] ORDERABLES * (ABNORMAL) HEMOGLOBIN A1C (05/23/2024 2:49 PM CDT) Only the most recent of4 resultswithin the time period is included. Hemoglobin A1c 7.5(H) <5.7 % 05/23/2024 3:45 PM CDT [facility] Estimated Average Glucose 169 mg/dL 05/23/2024 3:45 PM CDT [facility] Blood BLOOD SPECIMEN / Unknown Venipuncture / Unknown 05/23/2024 2:49 PM CDT 05/23/2024 3:27 PM CDT [facility] - 05/23/2024 3:45 PM CDT HbA1c [...] Felton MD LAB - CHEMISTRY LOUIS RAMIREZ [facility] Organization Address City/State/ZIP Co de Phone Number [facility] [address] [place] [address] * LAB RESULTS ORDER (05/20/2024 3:01 AM CDT) Only the most recent of3 resultswithin the time period is included. Narrative 05/20/2024 3:01 AM CDT Ordered by an unspecified provider. Scanned Document LAB - THERAPEUTIC DR RODRIGUEZ MONITORING ORDERABLES * TRICHOMONAS VAGINALIS AMPLIFIED PROBE (05/16/2024 11:42 PM CDT) Only the most recent of2 resultswithin the time period is included. Trichomonas vaginalis Amplified Probe Negative Negative 05/17/2024 8:07 PM CDT [facility] Other URINE / Unknown Collection / Unknown 05/16/2024 11:42 PM CDT 05/16/2024 11:56 PM CDT Narrative [facility] - 05/17/2024 8:07 PM CDT This test was developed and its performance characteristics determined by the [facility], [facility]. Urine specimens tested by the [facility] [place] have not been cleared or approved by the U.S. Food and Drug Administration (FDA). The laboratory is regulated under the Clinical Laboratory Improvement Amendments (CLIA) as qualified to perform high-complexity testing. This test is used for clinical purposes. It should not be regarded as investigational or for research. Results based on detection/no detection of ribosomal RNA by amplified method. Sidney Gray MD LAB - MICROBIO LOGY ORDERABLES [facility] [address] [place] [address], [facility] [phone] * CHLAMYDIA + GC AMPLIFIED PROBE (05/16/2024 11:42 PM CDT) Only the most recent of2 resultswithin the time period is included. Chlamydia Amplified Probe Negative Negative 05/17/2024 8:07 PM CDT [facility] GC Amplified Probe Negative Negative 05/17/2024 8:07 PM CDT [facility] Other URINE / Unknown Collection / Unknown 05/16/2024 11:42 PM CDT 05/16/2024 11:56 PM CDT Narrative [facility] - 05/17/2024 8:07 PM CDT Results based on detection/no detection of ribosomal RNA by amplified method. Sidney Gray MD LAB - MICROBIO LOGY ORDERABLES [facility] [address] [place] [address], [facility] [phone] * (ABNORMAL) URINALYSIS REFLEX TO MICROSCOPIC NO CULTURE (05/16/2024 8:12 PM CDT) Only the most recent of2 resultswithin the time period is included. Color UA Demetra(A) Straw, Yellow 05/16/2024 8:39 PM CDT [facility] Clarity UA Slt Cloudy(A) Clear 05/16/2024 8:39 PM CDT [facility] Glucose UA 1+(A) Negative 05/16/2024 8:39 PM CDT [facility] Bilirubin UA Negative Negative 05/16/2024 8:39 PM CDT [facility] Ketone UA 2+(A) Negative 05/16/2024 8:39 PM CDT [facility] Specific Bahama UA 1.019 1.005 - 1.030 05/16/2024 8:39 PM CDT [facility] Blood UA 1+(A) Negative 05/16/2024 8:39 PM CDT [facility] pH UA 6.0 5.0 - 8.0 pH 05/16/2024 8:39 PM CDT [facility] Protein UA 1+(A) Negative 05/16/2024 8:39 PM CDT [facility] Urobilinogen UA 4.0(A) Negative mg/dL 05/16/2024 8:39 PM CDT [facility] Nitrite UA Negative Negative 05/16/2024 8:39 PM CDT [facility] Leukocyte UA 3+(A) Negative 05/16/2024 8:39 PM CDT [facility] Urine Microscopy Urine microscopy to follow 05/16/2024 8:39 PM CDT [facility] Urine URINE SPECIMEN OBTAINED BY CLEAN CATCH PROCEDURE / Unknown Collection / Unknown 05/16/2024 8:12 PM CDT 05/16/2024 8:28 PM CDT Narrative [facility] - 05/16/2024 8:39 PM CDT Sidnye Gray MD LAB - URINALYS IS ORDERABLES Performing Organization Address City/[facility]/ZIP Co de Phone Number [facility] [address] [place], [place] [phone] * (ABNORMAL) URINE MICROSCOPIC ONLY (05/16/2024 8:12 PM CDT) RBC UA 0-2 0 - 5 # /hpf 05/16/2024 8:38 PM CDT [facility] WBC UA 21-50(A) 0 - 5 # /hpf 05/16/2024 8:38 PM CDT [facility] Hyaline Casts 0-2 0 - 2 /LPF 05/16/2024 8:38 PM CDT [facility] Bacteria UA Trace(A) None Seen 05/16/2024 8:38 PM CDT [facility] Squamous Epithelial Cells 11-20(A) 0 - 5 /hpf 05/16/2024 8:38 PM CDT [facility] Mucus UA 4+ /LPF 05/16/2024 8:38 PM CDT [facility] Urine URINE SPECIMEN OBTAINED BY CLEAN CATCH PROCEDURE / Unknown Collection / Unknown 05/16/2024 8:12 PM CDT 05/16/2024 8:28 PM CDT Narrative [facility] - 05/16/2024 8:38 PM CDT Sidney Gray MD LAB - URINALYS IS ORDERABLES [facility] [address] [place] [address] * (ABNORMAL) CULTURE STREP B (05/16/2024 6:41 PM CDT) Culture Strep B Growth of Streptococcus agalactiae (Group B)(AA) KONRAD 05/20/2024 1:45 PM CDT [facility] Microbiology MISCELLANEOUS SAMPLES / Unknown Collection / Unknown 05/16/2024 6:41 PM CDT 05/16/2024 6:48 PM CDT Narrative [facility] - 05/20/2024 1:45 PM CDT Susceptibility testing of penicillin, other beta-lactam antibiotics, and vancomycin is not necessary for beta-hemolytic streptococci groups A,B,C and G because resistant strains have not been recognized. Sidney Gray MD LAB - MICROBIO LOGY ORDERABLES Performing Organization Address City/[facility]/ZIP Co de Phone Number [facility] [address] [place] [address], [facility] [phone] * HIV-1 HIV-2 ANTIBODY + HIV P24 AG PANEL (04/24/2024 12:27 PM CDT) Only the most recent of2 resultswithin the time period is included. HIV1/2 Ab + P24 Ag Non Reactive Non Reactive 04/24/2024 1:22 PM CDT [facility] Blood BLOOD SPECIMEN / Unknown Venipuncture / Unknown 04/24/2024 12:27 PM CDT 04/24/2024 12:40 PM CDT Narrative [facility] - 04/24/2024 1:22 PM CDT No Laboratory evidence of HIV infection. Sidney Gray MD LAB - CHEMISTR Y ORDERABLES Performing Organization Address City/[facility]/ZIP Co de Phone Number [facility] [address] [place] [address] * SONOGRAM - COMPLETE (03/29/2024 1:06 PM CDT) Only the most recent of5 resultswithin the time period is included. Anatomical Region Laterality Modality Other 03/29/2024 1:06 PM CDT Narrative 03/29/2024 2:12 PM CDT [facility] PHONE: FAX: Pat. Name: GRACE ROSE. No: [id number] Study Date: 03/29/2024 1:06pm , Age: 09 2005, 18 Pregnancies: 2, Para 0010 Height: 60 in Weight: 109 lb LMP: 08/22/2023 GA by LMP: 31w3d GA by Base: 27w2d CLARISSA: 06/26/2024 GA by US: 27w2d CLARISSA: 06/26/2024 GA Selected: 27w2d (From [facility]) CLARISSA: 06/26/2024 Referring MD: MD Bharath, [facility] Unix Manager: Corine Jackson, RDAK, RDCS CPT4: 91658 BMI: 21.29 Hist/Ind: Low Risk NIPT-F Uncontrolled Type 1 DM Hypertension Tobacco use Follow up anatomy screen MEASUREMENTS & AGE GROWTH EVALUATION Measurement GA Range Srce %for GA Ratios ----- ---- ------- BPD 6.7 cm 26w6d (21k7i-00c2c) Hadl BPD 26% FL/BPD 0.75 (0.71 - 0.87) HC 24.9 cm 27w0d (14c7h-40o8v) Hadl HC 16% FL/AC 0.21 (0.20 - 0.24) AC 23.8 cm 28w1d (15p1r-37g4b) Hadl AC 70% HC/AC 1.05 (1.00 - 1.18) FL 5.0 cm 27w0d (74z0w-08w7p) Hadl FL 27% CI 0.76 (0.70 - 0.86) HL 4.4 cm 26w3d (75v3c-63p9i) Carmelo HL 36% GA for sonogram 27w2d (37a7e-48c8f) Weight Estimate: based on (BPD,HC,AC,FL) Avg Weight: 1090 gm (931-1249gm) Hadl : 2lbs, 6oz Normal: 1090 gm (817-1363gm) Hadl Wt% 50% for 27w2d Heart Rate: 154 bpm Amniotic Fluid Index: 06.6cm (Deepest Pocket) PROCEDURE, TECHNIQUE Procedure: Rate of growth Technique: transabdominal EVAL, PLACENTA Presentation: cephalic Placenta: anterior Heart Rate: 154 bpm Amniotic Fluid Volume: normal Anatomy!Normal!Abnormal!Suboptimal!Prev. Seen!Comments Cranium ! ! ! ! x ! Mdl (CSP/Thal! ! ! ! x ! Ventricles ! ! ! ! x ! Choroid Plexu! ! ! ! x ! Cerebellum ! ! ! ! x ! Cisterna M. ! ! ! ! x ! Nuchal Fold ! ! ! ! x ! Orbits ! ! ! ! x ! Profile ! ! ! ! x ! Nasal Bone ! ! ! ! x ! Lip ! ! ! ! x ! Spine ! x ! ! ! ! Lungs ! ! ! ! x ! 4 Chamber Hea! ! ! ! x ! LVOT ! ! ! ! x ! RVOT ! ! ! ! x ! 3 Vessel View! ! ! ! x ! 3 Vessel Trac! ! ! ! x ! Cross-over ! ! ! ! x ! Ductal Arch ! ! ! ! x ! Aortic Arch ! ! ! ! x ! Caval View ! ! ! ! x ! Situs ! ! ! ! x ! Diaphragm ! ! ! ! x ! Stomach ! x ! ! ! x ! Bowel ! ! ! ! x ! Kidneys ! x ! ! ! x ! Bladder ! x ! ! ! x ! 3 Vessel Cord! ! ! ! x ! Cord In! ! ! ! x ! Upper Extremi! ! ! ! x ! Hands ! ! ! ! x ! Lower Extremi! ! ! ! x ! Feet ! ! ! ! x ! External Debbie! ! ! ! x ! Placental Cor! ! ! ! x ! CLINICAL SUMMARY A single fetus is seen in cephalic presentation. The measurements today are consistent with appropriate size for established CLARISSA. The CLARISSA is based on a prior ultrasound at 7 weeks. The amniotic fluid volume is within normal limits. IMPRESSION: Single, live, intrauterine at 27w2d size is within normal limits Amniotic fluid volume: within normal limits RECOMMEND: Ultrasound in 4 weeks for growth assessment Thank you for allowing us the opportunity to care for your patient. Kat Dean MD <Electronic Signature> 03/29/2024 02:12pm Quirino Jhaveri MD [facility] ORDERABLES * EKG 12-LEAD (03/08/2024 4:44 PM CDT) Ventricular Rate 90 BPM [facility] Atrial Rate 90 BPM [facility] P-R Interval 120 ms [facility] QRS Duration ms 74 ms [facility] Q-T Interval ms 340 ms [facility] QTC Calculation (Bezet) 415 ms [facility] Calculated P [place] 22 degrees [facility] Calculated R [place] 34 degrees [facility] Calculated T [place] 6 degrees [facility] Interpretation EKG NORMAL SINUS RHYTHM LOW VOLTAGE QRS BORDERLINE ECG NO PREVIOUS ECGS AVAILABLE Confirmed by Jorge Diamond MD ([id number]) on 03/09/2024 7:45:54 AM [facility] MUSE 03/08/2024 4:44 PM CDT 03/09/2024 7:45 AM CDT Radha Nicolas MD ECG ORDERABLES [facility] * LACTIC ACID BLOOD (03/08/2024 4:21 PM CDT) Lactic Acid 1.2 <=2 mmol/L 03/08/2024 4:56 PM CDT [facility] Blood BLOOD SPECIMEN / Unknown Venipuncture / Unknown 03/08/2024 4:21 PM CDT 03/08/2024 4:29 PM CDT Jazmyn Oliver MD LAB - CHEMISTRY LOUIS RAMIREZ [facility] [address] [place] [address] * ANEUPLOIDY SCREENING (12/01/2023) Trisomy 21 Low Risk Trisomy 18 Low Risk Trisomy 13 Low Risk Monosomy X Low Risk Triploidy/Neela shing Twin NIPT Low Risk Blood BLOOD SPECIMEN / Unknown 12/01/2023 Narrative Sakina Garza RN - 12/06/2023 LOW RISK Predicted Sex: Female Fraction: 4.7% Panorama - Caitlin Screen Hard copy results available in Media. Francine Najera APRN-BENJAMIN LAB - AUTO BODY WORKER RY ORDERABLES * PROTEIN URINE TIMED QUANTITATIVE (11/24/2023 1:14 PM SENIOR QA AUTOMATION ENGINEER) Volume 24 Hour Urine 1,000 mL 11/24/2023 3:11 PM SENIOR QA AUTOMATION ENGINEER [facility] Collection Time Hours 24 hrs 11/24/2023 3:11 PM SENIOR QA AUTOMATION ENGINEER [facility] Protein 24 Hour Urine 84 <300 mg/24hr 11/24/2023 3:11 PM SENIOR QA AUTOMATION ENGINEER [facility] Protein Urine 8.4 <11.9 mg/dL 11/24/2023 3:11 PM SENIOR QA AUTOMATION ENGINEER [facility] Urine TIMED URINE SPECIMEN / Unknown Timed Urine Volume Measurement / Unknown 11/24/2023 1:14 PM SENIOR QA AUTOMATION ENGINEER 11/24/2023 2:51 PM SENIOR QA AUTOMATION ENGINEER Eb Nye MD LAB - URINE CHEMISTR Y ORDERABLES Performing Organization Address City/[facility]/ZIP Co de Phone Number [facility] [address] [place] [phone] * TSH REFLEX FREE T4 (11/10/2023 2:55 PM SENIOR QA AUTOMATION ENGINEER) TSH 0.810 0.350 - 4.940 uIU/mL 11/10/2023 3:56 PM SENIOR QA AUTOMATION ENGINEER [facility] Blood BLOOD SPECIMEN / Unknown Venipuncture / Unknown 11/10/2023 2:55 PM SENIOR QA AUTOMATION ENGINEER 11/10/2023 3:13 PM SENIOR QA AUTOMATION ENGINEER Eb Nye MD LAB - CHEMISTRY ORDE RABLES Performing Organization Address City/[facility]/ZIP Co de Phone Number [facility] [address] [place] [phone] * RUBELLA ANTIBODY IGG (11/10/2023 2:55 PM SENIOR QA AUTOMATION ENGINEER) Rubella Antibody 2.48 Immune >0.99 index 11/13/2023 4:08 AM SENIOR QA AUTOMATION ENGINEER [facility] ([facility]) Comment: Non-immune <0.90 Equivocal 0.90 - 0.99 Immune >0.99 Blood BLOOD SPECIMEN / Unknown Venipuncture / Unknown 11/10/2023 2:55 PM SENIOR QA AUTOMATION ENGINEER 11/10/2023 3:13 PM SENIOR QA AUTOMATION ENGINEER Narrative [facility] ([facility]) - 11/13/2023 4:08 AM SENIOR QA AUTOMATION ENGINEER Performed at: 01 - [facility] [address] [place], [place] [id number] Manufacturers Representative: Derek Ronquillo PhD, Phone: [phone] Eb Nye MD LAB - SEROLOGY ORDER ROSEANNA Performing Organization Address City/[facility]/ZIP Co de Phone Number [facility] ([facility]) [address] [place] [address] * PROTEIN CREATININE RATIO URINE RANDOM PNL (11/10/2023 2:55 PM SENIOR QA AUTOMATION ENGINEER) Pathologist [facility] Protein Urine 7.9 <11.9 mg/dL 11/10/2023 3:40 PM SENIOR QA AUTOMATION ENGINEER [facility] Creatinine Urine 81.93 mg/dL 11/10/2023 3:40 PM SENIOR QA AUTOMATION ENGINEER [facility] Protein/Creatin ine Ratio Urine 0.10 11/10/2023 3:40 PM SENIOR QA AUTOMATION ENGINEER [facility] Urine URINE SPECIMEN OBTAINED BY CLEAN CATCH PROCEDURE / Unknown Collection / Unknown 11/10/2023 2:55 PM SENIOR QA AUTOMATION ENGINEER 11/10/2023 3:13 PM SENIOR QA AUTOMATION ENGINEER Eb Nye MD LAB - URINE CHEMISTR Y ORDERABLES Performing Organization Address City/[facility]/ZIP Co de Phone Number [facility] [address] [place] [address] * HEPATITIS B SURFACE ANTIGEN W RFLX CONFIRMATION (11/10/2023 2:55 PM SENIOR QA AUTOMATION ENGINEER) Pathologist [facility] HBsAg Non Reactive Non Reactive 11/10/2023 4:01 PM SENIOR QA AUTOMATION ENGINEER [facility] Blood BLOOD SPECIMEN / Unknown Venipuncture / Unknown 11/10/2023 2:55 PM SENIOR QA AUTOMATION ENGINEER 11/10/2023 3:13 PM SENIOR QA AUTOMATION ENGINEER Eb Nye MD LAB - CHEMISTRY ORDE RABLES Performing Organization Address City/[facility]/ZIP Co de Phone Number [facility] [address] [place] [address] * HEPATITIS C ANTIBODY (11/10/2023 2:55 PM SENIOR QA AUTOMATION ENGINEER) [facility] HCV Antibody Screen Non Reactive Non Reactive 11/10/2023 4:00 PM SENIOR QA AUTOMATION ENGINEER [facility] Blood BLOOD SPECIMEN / Unknown Venipuncture / Unknown 11/10/2023 2:55 PM SENIOR QA AUTOMATION ENGINEER 11/10/2023 3:13 PM SENIOR QA AUTOMATION ENGINEER Narrative [facility] - 11/10/2023 4:00 PM SENIOR QA AUTOMATION ENGINEER Non Reactive - Antibodies to Hepatitis C virus (HCV) were not detected, result does not exclude early acute HCV infection. Eb Nye MD LAB - CHEMISTRY LOUIS RAMIREZ Performing Organization Address City/[facility]/ZIP Co de Phone Number [facility] [address] [place] [phone] * FERRITIN (11/10/2023 2:55 PM SENIOR QA AUTOMATION ENGINEER) [facility] Ferritin 58 5 - 204 ng/mL 11/10/2023 3:56 PM SENIOR QA AUTOMATION ENGINEER [facility] Blood BLOOD SPECIMEN / Unknown Venipuncture / Unknown 11/10/2023 2:55 PM SENIOR QA AUTOMATION ENGINEER 11/10/2023 3:13 PM SENIOR QA AUTOMATION ENGINEER Eb Nye MD LAB - CHEMISTRY LOUIS RAMIREZ [facility] [address] [place] [address]
--- OUTSIDE RECORDS SUMMARY | 2024-11-02 11:21 | XMS_ITS | Clinical Summary ---
Author Organization [facility] Address [address] [place] [address] Phone Care Team Providers Care Investigator Internal Affairs Name Role Phone Provider, None Primary Care Provider Unavailabl e Allergies Active Allergy Reactions Criticality Noted Date Comments Amoxicillin Unknown 09/07/2024 Diphenhydramine Unknown 08/04/2024 Medications FLUoxetine (PROzac) 20 MG Capsule Take 1 Capsule by mouth daily. 4 Active Norelgestromin- Eth Estradiol 150-35 MCG/24HR PATCH WEEKLY 1 Patch by Transdermal route once a week. 4 Active Encounters Date Type Department Care Team Description 10/05/2024 Patient Outreach [facility] [address] [place] [phone] Navigator, Digital Health Social Concerns 10/03/2024 9:36 PM FIRER KILN - 10/03/2024 10:46 PM FIRER KILN Emergency [facility] Emergency [address] [place] [phone] Suzanne Phillips APRN, CUSTOMER SERVICE SALES CONSULTANT Viral illness Discharge Disposition: Discharged to home or Selfcare 10/03/2024 Travel 09/16/2024 7:09 PM FIRER KILN - 09/16/2024 9:00 PM FIRER KILN Emergency [facility] Emergency [address] [place] [phone] Suzanne Phillips APRN, CUSTOMER SERVICE SALES CONSULTANT RSV (respiratory syncytial virus infection) Discharge Disposition: Discharged to home or Selfcare 09/16/2024 Travel 09/11/2024 Patient Outreach [facility] [address] [phone] Michelle Longo ED Follow-up 09/07/2024 8:11 AM FIRER KILN - 09/07/2024 11:00 AM FIRER KILN Emergency [facility] Emergency [address] [place] [phone] Antoine Hicks MD Tooth abscess Discharge Disposition: Left Against Medical Advice 09/07/2024 Travel 08/24/2024 10:14 PM FIRER KILN - 08/24/2024 10:34 PM FIRER KILN Emergency [facility] Emergency [address] [place] [address] Franc George PAC Thumb laceration, left, initial encounter Discharge Disposition: Discharged to home or Selfcare 08/24/2024 Travel 08/21/2024 2:19 PM FIRER KILN - 08/21/2024 2:31 PM FIRER KILN Emergency [facility] Emergency [address] [place] [address] Suzanne Phillips, JO ANN, CUSTOMER SERVICE SALES CONSULTANT Discharge Disposition: LWBS 08/21/2024 Travel 08/04/2024 10:55 AM FIRER KILN - 08/04/2024 1:21 PM FIRER KILN Emergency [facility] Emergency [address] [place] [address] Suzanne Phillips, JO ANN, CUSTOMER SERVICE SALES CONSULTANT Pertussis exposure Discharge Disposition: Discharged to home or Selfcare 08/04/2024 Travel from Last 3 Months Social History Tobacco Use Types Packs/Day Years Used Date Smoking Tobacco: Never Smokeless Tobacco: Never Tobacco Cessation:Counseling Given: Not Answered Alcohol Use Standard Drinks/Week Comments Not Currently 0 (1 standard drink = 0.6 oz pur e alcohol) Comments No Sex and Gender Information Value Date Recorded Sex Assigned at Not on file Legal Sex Female 10:39 AM FIRER KILN Gender Identity Not on file Sexual Orientation Not on file Last Filed Vital Signs Vital Sign Reading Time Taken Comments Blood Pressure 112/76 10/03/2024 9:41 PM FIRER KILN Pulse 76 10/03/2024 9:41 PM FIRER KILN Temperature 36 C (96.8 F) 10/03/2024 9:41 PM FIRER KILN Respiratory Rate 18 10/03/2024 9:41 PM FIRER KILN Oxygen Saturation 98% 10/03/2024 9:41 PM FIRER KILN Inhaled Oxygen Concentration - - Weight 43.5 kg (96 lb) 10/03/2024 9:41 PM FIRER KILN Height 149.9 cm (4' 11 ) 10/03/2024 9:41 PM FIRER KILN Body Mass Index 19.39 10/03/2024 9:41 PM FIRER KILN Plan of Treatment Health Maintenance Due Date Last Done Comments Human Papillomavirus (HPV) Immunization (1 - 3-dose series) 2019 Meningococcal B Immunization (1 of 2 - Standard) 2020 Hepatitis B Immunization (1 of 3 - 19+ 3-dose series) 2023 SARS-COV-2 Immunization ( - 2023-) 05/21/2024 Respiratory Syncytial Virus (RSV) Immunization (Adult) (1 - 1-dose 75+ series) 2079 Hepatitis C Virus (HCV) Screening Completed 11/10/2023 TdaP Immunization Completed 04/24/2024 Influenza Immunization Completed , 11/19/2023 Meningococcal Immunization (ACWY) Aged Out No longer eligible b ased on patient's age to complete this topic Pneumococcal Immunization Combined Aged Out No longer eligible b ased on patient's age to complete this topic Rotavirus Immunization Aged Out No lo nger eligible based on patient's age to complete this topic Procedures Procedure Name Priority Date/Time Associated Diagnosis Comments XR CHEST SINGLE VIEW STAT 10/03/2024 10:05 PM FIRER KILN GROUP A STREP BY PCR STAT 10/03/2024 9:51 PM FIRER KILN RSV,SARS-COV-2,INFLUEN ZA A&B BY PCR STAT 10/03/2024 9:47 PM FIRER KILN XR CHEST 2 VIEWS STAT 09/16/2024 7:23 PM FIRER KILN RSV,SARS-COV-2,INFLUEN ZA A&B BY PCR STAT 09/16/2024 6:47 PM FIRER KILN INCISION AND DRAINAGE Routine 09/07/2024 10:49 AM FIRER KILN POCT GLUCOSE STAT 09/07/2024 10:41 AM FIRER KILN GOLD TOP TUBE STAT 09/07/2024 8:23 AM FIRER KILN CBC WITH AUTO DIFFERENTIAL STAT 09/07/2024 8:23 AM FIRER KILN EXTRA TUBES STAT 09/07/2024 8:23 AM FIRER KILN ACETAMINOPHEN (TYLENOL) STAT 09/07/2024 8:23 AM FIRER KILN CMP (COMPREHENSIVE METABOLIC PANEL) STAT 09/07/2024 8:23 AM FIRER KILN COMPLETE BLOOD COUNT (CBC) WITH DIFF STAT 09/07/2024 8:23 AM FIRER KILN LACERATION REPAIR Routine 08/24/2024 10: 17 PM FIRER KILN B. PERTUSSIS AB, IGG, TURNER BORDG STAT 08/04/2024 11:29 AM FIRER KILN RSV,SARS-COV-2,INFLUEN ZA A&B BY PCR STAT 08/04/2024 11:00 AM FIRER KILN XR CHEST 2 VIEWS STAT 08/04/2024 10:5 6 AM FIRER KILN from Last 3 Months Results * XR CHEST SINGLE VIEW (10/03/2024 10:05 PM FIRER KILN) Anatomical Region Laterality Modality Chest N/A Digital Radiogra phy 10/03/2024 10:1 8 PM FIRER KILN Impressions 10/03/2024 10:21 PM FIRER KILN IMPRESSION: No acute cardiopulmonary abnormality. Narrative 10/03/2024 10:21 PM FIRER KILN EXAM DESCRIPTION: XR CHEST SINGLE VIEW REASON FOR STUDY: cough TECHNIQUE: Single radiographic view(s) of the chest. COMPARISON: 09/16/2024 FINDINGS: LUNGS: No focal opacity, pleural effusion, or pneumothorax. HEART/MEDIASTINUM: Cardiac silhouette normal in size. Mediastinal and hilar contours appear normal. LINES/TUBES: None. BONES: No acute osseous abnormality. THIS IS AN ELECTRONICALLY VERIFIED FINAL REPORT 10/03/2024 10:18 PM - Electronically signed by Raymundo AVALOS: ROBBIE Report ID: [id number] Reading Location: [place] [address] Procedure Note Raymundo Callahan MD - 10/03/2024 EXAM DESCRIPTION: XR CHEST SINGLE VIEW REASON FOR STUDY: cough TECHNIQUE: Single radiographic view(s) of the chest. COMPARISON: 09/16/2024 FINDINGS: LUNGS: No focal opacity, pleural effusion, or pneumothorax. HEART/MEDIASTINUM: Cardiac silhouette normal in size. Mediastinal and hilar contours appear normal. LINES/TUBES: None. BONES: No acute osseous abnormality. THIS IS AN ELECTRONICALLY VERIFIED FINAL REPORT 10/03/2024 10:18 PM - Electronically signed by Raymundo Callahan M.D. KH: ROBBIE Report ID: [id number] Reading Location: [place] [address] IMPRESSION: No acute cardiopulmonary abnormality. Suzanne Phillips APRN, CUSTOMER SERVICE SALES CONSULTANT IMG DIAGNOSTIC ORDERA BLES Final Result * GROUP A STREP BY PCR (10/03/2024 9:51 PM FIRER KILN) GROUP A STREP BY PCR NOT DETECTED NOT DETECTED 10/03/2024 10:17 PM FIRER KILN [facility] Swab SPECIMEN FROM THROAT / Unknown Non-Phlebotomy Collection / Unknown 10/03/2024 9:51 PM FIRER KILN 10/03/2024 9:51 PM FIRER KILN Avery Giraldo MD MICROBIOLOGY - GENERAL OR DERABLES Final Result Performing Organization Address City/[facility]/ZIP Co de Phone Number [facility] [address] [place] [address] * RSV,SARS-COV-2,INFLUENZA A&B BY PCR (10/03/2024 9:47 PM FIRER KILN) Only the most recent of3 resultswithin the time period is included. FLU A Negative Negative, Error 10/03/2024 10:32 PM [facility]N [facility] FLU B Negative Negative 10/03/2024 10:32 PM [facility] RESP SYNC VIRUS Negative Negative 10:32 PM FIRER KILN [facility] SARSCOV2 NOT DETECTED (Reference Range for this test is Not Detected) 10/03/2024 10:32 PM [facility] Comment:This test was perfor med by a Reverse Claims Customer Service Representative PCR Method. Swab NASOPHARYNGEAL SWAB / Unknown Non-Phlebotomy Collection / Unknown 10/03/2024 9:47 PM FIRER KILN 10/03/2024 9:51 PM FIRER KILN Narrative [facility] - 10/03/2024 10:32 PM FIRER KILN This test has not been FDA cleared or approved; the test has been authorized by FDA under an Emergency Use Authorization (EUA) for use by laboratories certified under the CLIA that meet the requirements to perform moderate, high or waived complexity tests. Authorized Fact Sheets about this test for providers and patients are available at: https://www.fda.gov/medical-devices/wxheffjdn-jusnpefhvk-mfbfnjh-devices/emergen -us e-authorizations us Suzanne Phillips SKID MAN, CUSTOMER SERVICE SALES CONSULTANT MICROBIOLOGY - GENERA L ORDERABLES Final Result Performing Organization Address City/[facility] Co de Phone Number [facility] [address] [place] [address] * XR CHEST 2 VIEWS (09/16/2024 7:23 PM FIRER KILN) Only the most recent of2 resultswithin the time period is included. Anatomical Region Laterality Modality Chest N/A Digital Radiogra phy 09/16/2024 8:30 PM FIRER KILN Impressions 09/16/2024 8:32 PM FIRER KILN IMPRESSION: No acute cardiopulmonary abnormality. Narrative 09/16/2024 8:32 PM FIRER KILN EXAM DESCRIPTION: XR CHEST 2 VIEWS REASON FOR STUDY: pt c/o cough and runny nose that began today. no hx of surgery TECHNIQUE: 2 radiographic view(s) of the chest. COMPARISON: 08/04/2024 FINDINGS: LUNGS: No focal opacity, pleural effusion, or pneumothorax. HEART/MEDIASTINUM: Cardiac silhouette normal in size. Mediastinal and hilar contours appear normal. LINES/TUBES: None. BONES: No acute osseous abnormality. THIS IS AN ELECTRONICALLY VERIFIED FINAL REPORT 09/16/2024 8:30 PM - Electronically signed by Raymundo Obando M.D. KT: KT Report ID: [id number] Reading Location: [id number] Procedure Note Raymundo Obando MD - 09/16/2024 EXAM DESCRIPTION: XR CHEST 2 VIEWS REASON FOR STUDY: pt c/o cough and runny nose that began today. no hx of surgery TECHNIQUE: 2 radiographic view(s) of the chest. COMPARISON: 08/04/2024 FINDINGS: LUNGS: No focal opacity, pleural effusion, or pneumothorax. HEART/MEDIASTINUM: Cardiac silhouette normal in size. Mediastinal and hilar contours appear normal. LINES/TUBES: None. BONES: No acute osseous abnormality. THIS IS AN ELECTRONICALLY VERIFIED FINAL REPORT 09/16/2024 8:30 PM - Electronically signed by Raymundo Obando M.D. KT: KT Report ID: [id number] Reading Location: [id number] IMPRESSION: No acute cardiopulmonary abnormality. Suzanne Phillips APRN, CUSTOMER SERVICE SALES CONSULTANT IMG DIAGNOSTIC ORDERA BLES Final Result * Incision and Drainage (09/07/2024 10:49 AM FIRER KILN) Narrative Antoine Hicks MD - 09/07/2024 10:49 AM FIRER KILN Antoine Hicks MD 09/09/2024 4:10 PM Incision and Drainage Performed by: Antoine Hicks MD Authorized by: Antoine Hicks MD Consent: Consent obtained: Verbal and written Concho protocol: Patient identity confirmed: Verbally with patient Location: Type: Abscess Location: Mouth Mouth location: Tooth number 20. Sedation: Sedation type: None Anesthesia: Anesthesia method: Local infiltration Local anesthetic: Bupivacaine 0.25% WITH epi Procedure type: Complexity: Simple Procedure details: Ultrasound guidance: no Needle aspiration: no Incision types: Stab incision Incision depth: Subcutaneous Drainage: Purulent Drainage amount: Copious Wound treatment: Wound left open Packing materials: None Post-procedure details: Procedure completion: Tolerated well, no immediate complications Comments: Abscess was completely drained of pus after a single stab incision. Patient tolerated the procedure well. Abscess was left open. Patient was felt much better after the procedure. Antoine Hicks MD PROCEDURE/MINOR SURGICAL O RDERABLES Final Result * (ABNORMAL) POCT Glucose (09/07/2024 10:41 AM FIRER KILN) [facility] GLUCOSE,BEDSID E POCT 407(HH) 70 - 99 mg/dL 09/07/2024 10:48 AM [facility] K[facility]N [facility] Comment: RN Notified ZARA VELÁSQUEZ Blood 09/07/2024 10:4 1 AM FIRER KILN 09/07/2024 10:48 AM FIRER KILN us None Provider POINT OF CARE TESTING Final Resu lt Performing Organization Address [facility] Co de Phone Number [facility] [address] [place] [address] * Gold Top Tube (09/07/2024 8:23 AM FIRER KILN) Blood No Phlebotomy Charged / Unknown 09/07/2024 8:23 AM FIRER KILN 09/07/2024 9:34 AM FIRER KILN Antoine Hicks MD CHEMISTRY ORDERABLES Final Result Performing Organization Address [facility]/ZIP Co de Phone Number [facility] [address] [place] [address] * (ABNORMAL) CBC with Auto Differential (09/07/2024 8:23 AM FIRER KILN) [facility] Signature WBC 8.09 4.00 - 12.00 10(3)/mcL 09/07/2024 9:38 AM [facility] K[facility]N [facility] RBC 4.83 3.80 - 5.30 10(6)/mcL 09/07/2024 9:38 AM [facility] HEMOGLOBIN (HGB) 12.7 12.0 - 15.8 g/dL 09/07/2024 9:38 AM [facility] HEMATOCRIT (HCT) 37.6 36.0 - 47.0 % 09/07/2024 9:38 AM [facility] MCV 77.8(L) 82.0 - 96.0 fL 09/07/2024 9:38 AM [facility] MCH 26.3 26.0 - 34.0 pg 09/07/2024 9:38 AM [facility] MCHC 33.8 31.0 - 36.0 g/dL 09/07/2024 9:38 AM [facility] PLATELET COUNT 308 140 - 440 10(3)/[facility] 09/07/2024 9:38 AM [facility] RDW 13.1 11.8 - 15.5 % 09/07/2024 9:38 AM [facility] MPV 10.9 9.7 - 12.4 fL 09/07/2024 9:38 AM [facility] NEUTROPHILS 81.0(H) 47.0 - 73.0 % 09/07/2024 9:38 AM [facility] LYMPHOCYTES 13.2(L) 18.0 - 42.0 % 09/07/2024 9:38 AM [facility] MONOCYTES 5.4 4.0 - 12.0 % 09/07/2024 9:38 AM [facility] EOSINOPHILS 0.2 0.0 - 5.0 % 09/07/2024 9:38 AM [facility] BASOPHILS 0.2 0.0 - 1.0 % 09/07/2024 9:38 AM [facility] ABSOLUTE NEUTROPHILS 6.54 1.60 - 7.70 10(3)/[facility] 09/07/2024 9:38 AM [facility] ABSOLUTE LYMPHOCYTES 1.07(L) 1.30 - 3.20 10(3)/[facility] 09/07/2024 9:38 AM [facility]N [facility] ABSOLUTE MONOCYTES 0.44 0.20 - 1.00 10(3)/[facility] 09/07/2024 9:38 AM FIRER KILN [facility] ABSOLUTE EOSINOPHIL 0.02 0.00 - 0.40 10(3)/[facility] 09/07/2024 9:38 AM [facility]N [facility] ABSOLUTE BASOPHILS 0.02 0.00 - 0.10 10(3)/[facility] 09/07/2024 9:38 AM FIRER KILN [facility] NRBC PER 100 WBC 0 09/07/20 9:38 AM FIRER KILN [facility] Blood Venipuncture / Unknown 09/07/2024 8:23 AM FIRER KILN 09/07/2024 9:33 AM FIRER KILN Antoine Hicks MD HEMATOLOGY ORDERABLES Lillie l Result [facility] [address] [place] [address] * (ABNORMAL) Tylenol (Acetaminophen) [id number] (09/07/2024 8:23 AM FIRER KILN) ACETAMINOPHEN <3(L) 10 - 30 mcg/mL 09/07/2024 11:14 AM FIRER KILN [facility] Blood Venipuncture / Unknown 09/07/2024 8:23 AM FIRER KILN 09/07/2024 9:33 AM FIRER KILN Antoine Hicks MD CHEMISTRY ORDERABLES Final Result [facility] [address] [place] [address] * (ABNORMAL) Comprehensive Metabolic Panel (Cmp) [id number] (09/07/2024 8:23 AM [facility]) SODIUM 134(L) 136 - 145 mmol/L 09/07/2024 10:07 AM [facility] POTASSIUM 3.8 3.5 - 5.1 mmol/L 09/07/2024 10:07 AM [facility] CHLORIDE 101 98 - 107 mmol/L 09/07/2024 10:07 AM [facility] CO2, VENOUS 22 22 - 30 mmol/L 09/07/2024 10:07 AM [facility] ANION GAP 14.8 <18.0 mmol/L 09/07/2024 10:07 AM [facility] GLUCOSE 487(HH) 70 - 99 mg/dL 09/07/2024 10:07 AM [facility] BUN 12 5 - 18 mg/dL 09/07/2024 10:07 AM [facility] CREATININE, BLOOD 0.82 0.60 - 1.00 mg/dL 09/07/2024 10:07 AM [facility] BUN/CREATININE RATIO 15 12 - 20 ratio 09/07/2024 10:07 AM [facility] TOTAL PROTEIN 7.4 6.3 - 8.2 g/dL 09/07/2024 10:07 AM [facility] ALBUMIN 4.3 3.5 - 5.0 g/dL 09/07/2024 10:07 AM [facility] A/G RATIO 1.4 1.0 - 2.2 09/07/2024 10:07 AM [facility] CALCIUM 9.3 8.7 - 10.5 mg/dL 09/07/2024 10:07 AM [facility] T BILI 0.5 0.2 - 1.2 mg/dL 09/07/2024 10:07 AM FIRER KILN [facility] SGOT (AST) 8 5 - 34 U/L 09/07/2024 10:07 AM FIRER KILN [facility] SGPT (ALT) 10 0 - 55 U/L 09/07/2024 10:07 AM [facility] ALKALINE PHOSPHATASE 67 40 - 150 U/L 09/07/2024 10:07 AM [facility] GFR, ESTIMATED >60 >=60 09/07/2024 10:07 AM [facility] Comment: Creatinine Clearance is the preferred criteria for selecting drug dose adjustments in renally impaired patients. The GFR is provided as additional pertinent clinical information. GFR is reported in mL/min/1.73 sq m. Calculation based on the Chronic Kidney Disease Epidemiology Collaboration (CKD- EPI) equation refit without adjustment for race. GFR, EST. >60 >=60 024 10:07 AM [facility] GFR, EST. NONAFRICAN >60 >=60 09/07/2024 10:07 AM [facility] Blood Venipuncture / Unknown 09/07/2024 8:23 AM FIRER KILN 09/07/2024 9:33 AM FIRER KILN us Antoine Hicks MD CHEMISTRY ORDERABLES Final Result [facility] [address] [place] [address] * Laceration Repair (08/24/2024 10:17 PM FIRER KILN) Narrative Chintan Harris MD - 08/24/2024 10:17 PM FIRER KILN Franc George PAC 08/24/2024 10:26 PM Laceration Repair Performed by: Franc George PAC Authorized by: Franc George PAC Consent: Consent obtained: Verbal Consent given by: Patient Risks, benefits, and alternatives were discussed: yes Risks discussed: Infection, pain, vascular damage, tendon damage, poor cosmetic result, poor wound healing, need for additional repair, nerve damage and retained foreign body Alternatives discussed: No treatment Concho protocol: Procedure explained and questions answered to patient or proxy's satisfaction: yes Relevant documents present and verified: yes Required blood products, implants, devices, and special equipment available: yes Patient identity confirmed: Verbally with patient and arm band Anesthesia: Anesthesia method: None Laceration details: Location: Finger Finger location: L thumb Length (cm): 1 Depth (mm): 1 Pre-procedure details: Preparation: Patient was prepped and draped in usual sterile fashion Exploration: Limited defect created (wound extended): no Hemostasis achieved with: Direct pressure Wound exploration: wound explored through full range of motion and entire depth of wound visualized Wound extent: no foreign bodies/material noted, no muscle damage noted, no nerve damage noted, no tendon damage noted, no underlying fracture noted and no vascular damage noted Treatment: Area cleansed with: Saline and chlorhexidine Amount of cleaning: Standard Irrigation solution: Sterile saline Irrigation volume: 10 cc Irrigation method: Syringe Debridement: None Undermining: None Skin repair: Repair method: Tissue adhesive Approximation: Approximation: Close Repair type: Repair type: Simple Post-procedure details: Dressing: Non-adherent dressing Procedure completion: Tolerated well, no immediate complications Franc Geroge PAC PROCEDURE/MINOR SURGI MARCO ANTONIO ORDERABLES Final Result * B. PERTUSSIS AB, IGG, HESPERIA GABINO (08/04/2024 11:29 AM FIRER KILN) B. PERTUSSIS IGG Negative Negative 08/10/20 1:56 PM [facility] Comment: No IgG antibodies to pertussis toxin (PT) detected. Results may be falsely negative in patients with < 2 weeks of symptoms. B. PERTUSSIS VALUE 26.76 IU/mL 2023 1:56 PM [facility] Comment: REFERENCE VALUE <40 IU/mL = Negative >=40 - <100 IU/mL = Borderline >=100 IU/mL = Positive ADDITIONAL INFORMATION This test was developed and its performance characteristics determined by [facility] in a manner consistent with CLIA requirements. This test has not been cleared or approved by the U.S. Food and Drug Administration. Test Performed by: [facility] - [address] [address] Furrier Apprentice: Hilary Lugo Ph.D.; CLIA# [id number] Blood Venipuncture / Unknown 08/04/2024 11:29 AM FIRER KILN 08/04/2024 11:38 AM FIRER KILN us Suzanne Phillips SKID MAN, CUSTOMER SERVICE SALES CONSULTANT LAB SEND OUTS Final Result [facility] from Last 3 Months Insurance MEDICAID [place] Care Teams Investigator Internal Affairs Relationship Specialty Start Date End Date Provider, None [place] PCP - General 08/04/24
--- OUTSIDE RECORDS SUMMARY | 2024-11-02 11:21 | XMS_ITS | Encounter Summary ---
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 LMTCB or respond to [employer] message. [facility] * Telephone Encounter - Coco Mcclellan RN - 11/02/2023 11:27 AM CST PC to pt. Pt is a Type 1DM followed by Dr. Joanne Marquez.at [facility]. Pt states LMP was ~08/22/23. Pt has been seen by OB in [place] however Dr. Marquez was referring to [facility] based on most recent A1C. Pt unsure what a1C was. Unable to view in CE.Appt made for patient and appt info sent via [employer]. [facility] * Telephone Encounter - Zay Cunningham - 11/02/2023 11:12 AM CST Pt calling per referring Provider Jimmy for high risk MFM appt, please call to schedule. [facility] documented in this encounter Plan of Treatment Not on file documented as of this encounter Visit Diagnoses Not on filedocumented in this encounter
--- OUTSIDE RECORDS SUMMARY | 2024-11-02 11:21 | XMS_ITS | Referral Summary ---
Author Organization [facility] Address [address] [place] [address] Care Team Providers Care Journeyman Carpenter Name Role Phone Unknown, Notinfile Primary Care Provider Unavail able Encounters Date Type Department Care Team Description 10/18/2024 5:26 PM MUTUAL FUND SALES AGENT - 10/18/2024 5:56 PM [facility] Emergency [facility] Emergency Department [address] [place] [address] Discharge Disposition: Left without being seen 10/08/2024 3:56 PM MUTUAL FUND SALES AGENT - 10/08/2024 6:08 PM [facility] Emergency [facility] Emergency Department [address] [place] [address] Viral illness (Primary Dx) Discharge Disposition: Discharge to home or self care 10/06/2024 7:19 AM MUTUAL FUND SALES AGENT - 10/06/2024 8:27 AM [facility] Emergency [facility] Emergency Department [address] [place] [address] Clifford Gandara MD Viral syndrome (Primary Dx) Discharge Disposition: Discharge to home or self care from Last 3 Months Allergies Active Allergy [...] subcutaneous insulin pump (t:slim X2 Insulin Pump) [facility] [place] Active blood-glucose meter,continuous (Dexcom G6 Otr Flatbed Driver) [facility] [place] Activ e blood-glucose sensor (Dexcom G6 Sensor) device Activ e blood-glucose transmitter (Dexcom G6 Transmitter) device Active vit,ngfq76-vmbr-bx lic (PRENATABS RX) tablet tablet Take by [...] 12/29/19 24 Active OneTouch Verio Flex meter [facility] [place] as directed 01/04/20 24 Active docusate sodium (COLACE) 100 mg capsule Take 1 capsule (100 mg total) by mouth 2 (two) times a day 12/03/19 24 Active LANTUS 100 unit/mL (3 mL) pen for injection 03/01/20 24 Active OneTouch Delica Plus Lancet 33 gauge [facility] [place] daily 12/29/19 24 Active magnesium oxide (MAG-OX) [...] with hyperglycemia 05/21 Anxiety and depression 08/30/2017 Social History Tobacco Use Types Packs/Day Years [...] Comments Blood Pressure 123/70 10/18/2024 4:10 PM MUTUAL FUND SALES AGENT Pulse 98 10/18/2024 4:10 PM MUTUAL FUND SALES AGENT Temperature 36.6 C (97.9 F) 10/18/2024 4:10 PM MUTUAL FUND SALES AGENT Respiratory Rate 14 10/18/2024 4:10 PM MUTUAL FUND SALES AGENT Oxygen Saturation 100% 10/18/2024 4:10 PM MUTUAL FUND SALES AGENT Inhaled Oxygen Concentration - - Weight 41.7 kg (92 lb) 10/18/2024 4:10 PM MUTUAL FUND SALES AGENT Height 152.4 cm (5') 10/18/2024 4:10 PM MUTUAL FUND SALES AGENT Body Mass Index 17.97 10/18/2024 4:10 PM MUTUAL FUND SALES AGENT Plan of Treatment Not on file Procedures Procedure Name Priority Date/Time Associated Diagnosis Comments XR CHEST 1 VIEW ED 10/06/2024 7:49 AM MUTUAL FUND SALES AGENT INFLUENZA A/B, RSV, AND COVID-19 PCR Routine 10/06/2024 7:19 AM MUTUAL FUND SALES AGENT EGFR STAT 12/06/2023 12:36 PM CDT HEMOGLOBIN A1C Routine 04/23/2023 4:07 PM CDT TSH STAT 04/23/2023 4:07 PM CDT from Last 3 Months or Most Recently Relevant to Health Maintenance Results * XR Chest 1 View (10/06/2024 7:49 AM MUTUAL FUND SALES AGENT) Anatomical Region Laterality Modality Body, Chest N/A Computed Radiogr aphy 10/06/2024 7:52 AM MUTUAL FUND SALES AGENT Narrative 10/06/2024 7:54 AM MUTUAL FUND SALES AGENT EXAM DESCRIPTION: XR CHEST 1 VIEW REASON [...] Raymundo Lauren M.D. KN: [id number] Report ID: [id number] Reading Location: [id number] Procedure Note Raymundo Lauren MD - 10/06/2024 [...] Raymundo Lauren M.D. KN: [id number] Report ID: [id number] Reading Location: [place] [address] Clifford Gandara MD IMG XR PROCEDURES F inal Result * Influenza A/B, RSV, and COVID-19 PCR Nasopharyngeal (10/06/2024 7:19 AM MUTUAL FUND SALES AGENT) COVID-19 RNA Negative Negative Influenza A RNA Negative Negative [facility]) Influenza B RNA Negative Negative [facility] ([place]) RSV RNA Negative Negative [facility] ([place]) Comment: Interpretive data: Testing performed by [facility]. This test is performed using the [employer] Xpert Xpress CoV-2/Flu/RSV plus assay. This is a multiplex, real- time reverse transcriptase PCR assay intended for the qualitative detection of nucleic acid from SARS-CoV-2, influenza A, influenza B, and respiratory syncytial virus. This assay has been cleared by the [place] Food and Drug administration. The performance characteristics have been verified by the [facility]. Results must be considered in the clinical context, and a negative result does not rule out infection. Interpretive Data last revised 2023 Nasopharyngeal 10/06/2024 7: 19 AM MUTUAL FUND SALES AGENT 10/06/2024 7:24 AM MUTUAL FUND SALES AGENT Narrative [facility] ([place]) - 10/06/2024 8:14 AM MUTUAL FUND SALES AGENT Is the Patient experiencing symptoms consistent with COVID?->Yes Clifford Gandara MD LAB MICROBIOLOGY - GENERAL ORDERABLES Final Result Performing Organization Address [facility] Co de Phone Number [facility]AN [facility] ([place]) [address] [facility] [place] [address] * eGFR (12/06/2023 12:36 PM CDT) eGFR [...] MD LAB BLOOD ORDERABLE S Final Result Performing Organization Address [facility] Co de Phone Number JAN [facility] ([place]) [address] [facility] [place] [address] * TSH (04/23/2023 4:07 PM CDT) Thyroid Stimulating Hormone 1.75 0.30 - 4.20 mcIUnit/mL JUANDAVID [facility] ([place]) Blood 04/23/2023 4:07 PM CDT 04/23/2023 4:11 PM CDT us Naveen Burrell MD LAB BLOOD ORDERABLES Final Result Performing Organization Address [facility] Co de Phone Number [facility] ([place]) [address] [facility] [place] [address] * (ABNORMAL) Hemoglobin A1c (04/23/2023 4:07 PM CDT) Hgb A1C 14.7(H) 4.0 - 5.6 % [facility]) Estimated Average Glucose 375 mg/dL [facility] ([place]) Comment: The ADA recommends reporting an estimated Average Glucose (eAG) with all Hemoglobin A1c results using the equation derived from a study of 507 normal and diabetic adults. Minority populations were underrepresented and children were not included. (Diabetes Care 31:9386-3107, 2008). The eAG is not equivalent to a fasting glucose. Blood 04/23/2023 4:07 PM CDT 04/23/2023 4:11 PM CDT Naveen Burrell MD LAB BLOOD ORDERABLES Final Result Performing Organization Address [facility] Co de Phone Number [facility] ([place]) [address] [place] [address] from Last 3 Months or Most Recently Relevant to Health Maintenance [place] [address] [address] [place] [address] Care Teams Journeyman Carpenter Relationship Specialty Start Date End Date Unknown, Notinfile PCP - General 01/29/24
--- OUTSIDE RECORDS SUMMARY | 2024-11-02 11:21 | XMS_ITS | Encounter Summary ---
Author Organization [facility] Address [address] [place] [address] Care Team Providers Care Openstack Cloud Consulting Architect Name Role Phone Unavailable Primary Care Provider Unavailabl e Reason for Visit * Reason Onset Date Comments MEDICATION REFILL 11/22/2023 Encounter Details Date Type Department Care Team (Late st Contact Info) Description 11/22/2023 Refill [facility] MATERNAL/ EVALUATION UNIT [address] [place] [address] Jazmyn Rivera MD [address] [place] [address] MEDICATION REFILL Social History Tobacco Use Types Packs/Day Years Used Date Smoking Tobacco: Every Day Cigarettes Smokeless Tobacco: Never Alcohol Use Standard Drinks/Week Comments Never 0 (1 standard drink = 0.6 oz pur e alcohol) Overall Financial Resource Strain (CARDIA) Answe r Date Recorded How hard is it for you to pa y for the very basics like food, housing, medical care, and heating? Not very hard 11/10/2023 [facility] - Occupational Stress Questionnaire Answer Date Recorded Do you feel stress - tense, restless, nervous, or anxious, or unable to sleep at night because your mind is troubled all the time - these days? Only a little 11/10/2023 Hunger Vital Sign Answer Date Recorded Within the past 12 months, y ou worried that your food would run out before you got the money to buy more. Never true Within the past 12 months, t he food you bought just didn't last and you didn't have money to get more. Patient declined PRAPARE - Transportation Answer Date Re corded In the past 12 months, has l ack of transportation kept you from medical appointments or from getting medications? No 10/22 In the past 12 months, has l ack of transportation kept you from meetings, work, or from getting things needed for daily living? No 11/10/2023 Housing Stability Vital Sign Answer Kyle e Recorded In the last 12 months, was t here a time when you were not able to pay the mortgage or rent on time? No 11/10/2023 In the last 12 months, how many places have you lived? 1 11/10/2023 In the last 12 months, was t here a time when you did not have a steady place to sleep or slept in a [place] [facility] [place] (including now)? No 11/10/2023 [place] Depression Scale Answer Date Recorded [place] Depression Scale Total 7 11/10/2023 The thought of harming myself has occurred to me . Never 11/10/2023 Comments Yes Sex and Gender Information Value Date Recorded Sex Assigned at Not on file Gender Identity Not on file Sexual Orientation Not on file documented as of this encounter Plan of Treatment Not on file documented as of this encounter Visit Diagnoses Not on filedocumented in this encounter
--- OUTSIDE RECORDS SUMMARY | 2024-11-02 11:21 | XMS_ITS ---
Author Organization [facility] Address [address] [place] [address] Phone Care Team Providers Care Wastewater Treatment Operator Name Role Phone Provider, None Primary Care Provider Unavailabl e [facility] Status:Enrolled (Active) Start date:10/04/2024 Enrollment date:10/04/2024 Related social drivers of health:Intimate Partner Violence, Social Connections, Alcohol Use, Financial Resource Strain, Depression, Stress, Physical Activity, Food Insecurity, Transportation Needs, Housing Stability, Utilities Continued Care and Services Coordination
--- NOTE | 2024-11-02 12:05 | PC.NURSE ---
NO ANSWER WHEN CALLED FROM WAITING ROOM TO BE PLACED IN ROOM
--- OUTSIDE RECORDS SUMMARY | 2024-11-02 12:42 | XMS_ITS | Referral Summary ---
Author Organization [facility] Health Address [address] [place] [place] [address] Care Team Providers Care Embossed Or Impressed Lettering Painter Name Role Phone Unavailable Primary Care Provider Unavailabl e Source Comments [facility],non-owned Affiliates and Associated Physician Practices is amultiple site organization consisting of ambulatory clinics and hospital sitesin [place], [place], [place] and [place]. This disclosure is being madepursuant to the Care Everywhere program and may not contain all information available regarding this patient. Last updated 18.[facility]PN Encounters Date Type Department Care Team Description 08/24/2024 Travel 08/24/2024 9:08 AM CAGE FIGHTER - 08/24/2024 11:59 PM CAGE FIGHTER Hospital Encounter [facility] MATERNAL/ EVALUATION UNIT [address] [place] [address] Ave[address] [place] [address] Kishore Small DO Discharge Disposition: Home or Self Care 08/24/2024 9:08 AM CAGE FIGHTER - 08/24/2024 11:59 PM CAGE FIGHTER Hospital Encounter [facility] MATERNAL/ EVALUATION UNIT [address] [place] [address] Juan Pablo Belcher MD Polcaro, Joseph, Discharge Disposition: Home or Self Care 08/15/2024 Telephone [facility] MATERNAL/ EVALUATION UNIT [address] [place] [address] Sakina Garza RN MEDICATION REFILL 08/15/2024 Telephone [facility] MATERNAL/ EVALUATION UNIT [address] [place] [address] Linda Lopez Medication Request 08/14/2024 Refill [facility] MATERNAL/ EVALUATION UNIT [address] [place] [address] Sidney Gray MD Refill Request 08/14/2024 Refill [facility] MATERNAL/ EVALUATION UNIT [address] [place] [address] Quirino Jhaveri MD Refill Request from Last [...] diabetes mellitus affecting in second trimester, antepartum ([facility]) Use 1 Each as directed 1 kit 12/29/2023 Active blood glucose (OneTouch Verio) test stripIndications:T ype 1 diabetes mellitus affecting in second trimester, antepartum ([facility]) Please supply strips to match meter to calibrate dexcom 100 strip 5 12/29/2023 Active Lancets (ONETOUCH DELICA PLUS 33G EXTRA FINE LANCET)Indications :Type 1 diabetes mellitus affecting in second trimester, antepartum ([facility]) Please supply lancets to match lancing [...] 15 mL 03/01/2024 Active Insulin Pen Needle (DueDil Pen [place]) 32G X 4 MM MISCIndications:Ty pe 1 diabetes mellitus affecting in second trimester, antepartum ([facility]) Use 1 Each 2 times daily 100 Each 5 03/01/2024 Active Nirmatrelvir&Riton avir 300/100 20 x 150 MG & 10 x 100MG Oral Tablet Therapy Pack (Paxlovid)Indicati ons:COVID-19 affecting in second trimester ([facility]) Take two 150mg tablets (300mg) of [...] migh t be different from the original. [employer] form completed. Diapers given. 04/05/2024, 05/02/24, 08/24/2024 *PLEASE NOTE - WISH RESEARCH STUDY PATIENT* This patient is enrolled in Drs. Guerrero/Dr. Quinonez research study investigating differences in genetic make-up between placentas exposed to opioid use disorder and controls. (IRB#[id number]). Please collect: Placenta Biopsy after delivery of placenta Supplies (scalpel and formalin container) are located in basket above the research fridge on L&D (in soiled holding room #5113 next to bathroom) Take biopsy of placenta (~5m5dpbk full thickness near cord insertion) and place in formalin container Place patient sticker in bag with formalin. Place in back in basket in room air above research fridge (in soiled holding room #5113 next to bathroom) Text Dr. Guerrero MINE at [phone] that specimen collected. Problem Noted Date Diagnosed [...] exposed to opioid use disorder and controls. (IRB#[id number]). Please collect: Placenta Biopsy after delivery of placenta Supplies (scalpel and formalin container) are located in basket above the research fridge on L&D (in soiled holding room #5113 next to bathroom) Take biopsy of placenta (~3v1knnf full thickness near cord insertion) and place in formalin container Place patient sticker in bag with formalin. Place in back in basket in room air above research fridge (in soiled holding room #5113 next to bathroom) Text Dr. Guerrero MINE at [phone] that specimen collected. contractions 05/16/2024 Supervision of high risk in third trim lyndsay 04/04/2024 Overview (04/05/2024): Primary OB: [place] - PNL: A pos, Antibody neg, HIV/Hep [...] feet. Previously recommended regular foot examinations - Glass Forming Engineer is Dr. Marquez in [place] - Baseline PIH labs: 42/ 344/ 0.54/ [...] and heating? Not hard at all 05/31/2024 [facility] [place] of Occupat ional Health - Occupational Stress [...] place to sleep or slept in a group home (including now)? No 05/31/2024 [place] Depression Scale Answer Date Recorded [place] Depression Scale Total 3 06/03/2024 The thought of harming myself has occurred to me . Never 06/03/2024 Sex and Gender Information Value Date Recorded Sex Assigned at Not on file Gender Identity Not on file Sexual Orientation Not on file Last Filed Vital Signs Vital Sign Reading Time Taken Comments Blood Pressure 107/59 08/24/2024 9:21 AM CAGE FIGHTER Pulse 95 08/24/2024 9:21 AM CAGE FIGHTER Temperature 36.7 C (98 F) 06/30/2024 9:00 PM CDT Respiratory Rate 20 06/30/2024 9:00 PM CDT Oxygen Saturation 99% 06/30/2024 9:00 PM CDT Inhaled Oxygen Concentration - - Weight 44 kg (97 lb) 08/24/2024 9:21 AM CAGE FIGHTER Height 149.9 cm (4' 11 ) 05/31/2024 [...] (IP) BEAKER INTERFACE Routine 08/24/2024 10:11 AM CAGE FIGHTER HCG URINE QUALITATIVE - POCT (IP) INTERFACED Routine 08/24/2024 9:31 AM CAGE FIGHTER GLUCOSE - POINT OF CARE Routine 08/24/2024 9:21 AM CAGE FIGHTER COMPREHENSIVE METABOLIC PANEL Routine 06/03/2024 9:47 AM CDT HEMOGLOBIN A1C Routine 05/23/2024 2:49 PM CDT Type 1 diabetes mellitus during in third trimester (HCC) CHLAMYDIA + GC AMPLIFIED PROBE Routine 05/16/2024 11:42 PM CDT HIV-1 HIV-2 ANTIBODY + HIV P24 AG PANEL Routine 04/24/2024 12:27 PM CDT Supervision of high risk in third trimester (HCC) HEPATITIS C ANTIBODY Routine 11/10/2023 2:55 PM CAGE FIGHTER Supervision of high risk , antepartum (HCC) from Last 3 Months or Most Recently Relevant to Health Maintenance Results * (ABNORMAL) URINALYSIS - POCT (IP) BEAKER INTERFACE (08/24/2024 10:11 AM CAGE FIGHTER) Color UA POCT Dark Yellow Straw, Yellow, Dark Yellow, Light Yellow 08/24/2024 10:14 AM CAGE FIGHTER [facility] Clarity UA POCT Clear Clear 10:14 AM CAGE FIGHTER [facility] Specific [place] UA POCT >=1.030 1.005 - 1.030 08/24/2024 10:14 AM CAGE FIGHTER [facility] pH UA POCT 5.5 5.0 - 8.0 pH 08/24/2024 10:14 AM CAGE FIGHTER [facility] Protein UA POCT Trace(A) Negative 10:14 AM CAGE FIGHTER [facility] Blood UA POCT 3+(A) Negative 08/24/2024 10:14 AM CAGE FIGHTER [facility] Leukocyte UA POCT Negative Negative 08/24/2024 10:14 AM CAGE FIGHTER [facility] Nitrite UA POCT Negative Negative 10:14 AM CAGE FIGHTER [facility] Glucose UA POCT 3+(A) Negative 10:14 AM CAGE FIGHTER [facility] Ketone UA POCT 1+(A) Negative 08/24/2024 10:14 AM CAGE FIGHTER [facility] Bilirubin UA POCT Negative Negative 08/24/2024 10:14 AM CAGE FIGHTER [facility] Urobilinogen UA POCT 0.2 0.1 - 1.0 EU/dL 08/24/2024 10:14 AM CAGE FIGHTER [facility] Urine URINE / Unknown 08/24/2024 1 0:11 AM CAGE FIGHTER 08/24/2024 10:14 AM CAGE FIGHTER Kishore Hermannaomi DO LAB - POINT OF CARE ORDERABLES Performing Organization Address City/[facility]/ZIP Co de Phone Number [facility] [address] [place] [id number] * HCG URINE QUALITATIVE - POCT (IP) INTERFACED (08/24/2024 9:31 AM CAGE FIGHTER) HCG Qual Urine Negative Negative 08/24/2024 9:38 AM [facility] Urine URINE / Unknown 08/24/2024 9 :31 AM CAGE FIGHTER 08/24/2024 9:38 AM CAGE FIGHTER [facility] - POINT OF CARE ORDERABLES [facility] [address] [place] [address] * (ABNORMAL) GLUCOSE - POINT OF CARE (08/24/2024 9:21 AM CAGE FIGHTER) Glucose WB/POC 305(H) 70 - 99 mg/dL 08/24/2024 9:30 AM CAGE FIGHTER [facility] Specimen Type Cap Fingerstick 2023 9:30 AM [facility] Blood BLOOD SPECIMEN / Unknown 08/24/2024 9:21 AM CAGE FIGHTER 08/24/2024 9:30 AM CAGE FIGHTER Kishore Small DO LAB - POINT OF CARE ORDERABLES [facility] [address] [place] [address] * (ABNORMAL) COMPREHENSIVE METABOLIC PANEL (06/03/2024 9:47 AM CDT) [facility] Glucose 124(H) 70 - 105 mg/dL 06/03/2024 10:14 AM CDT [facility] Sodium 137 136 - 145 mmol/L 06/03/2024 10:14 AM CDT [facility] Potassium 3.4(L) 3.5 - 5.1 mmol/L 06/03/2024 10:14 AM CDT [facility] Chloride 108(H) 98 - 107 mmol/L 06/03/2024 10:14 AM CDT [facility] CO2 21(L) 22 - 29 mmol/L 06/03/2024 10:14 AM CDT [facility] Calcium 7.7(L) 8.4 - 10.4 mg/dL 06/03/2024 10:14 AM CDT [facility] Anion Gap 8 6 - 16 mmol/L 06/03/2024 10:14 AM CDT [facility] BUN 14 5.3 - 18.7 mg/dL 06/03/2024 10:14 AM CDT [facility] Creatinine 0.70 0.57 - 1.11 mg/dL 06/03/2024 10:14 [facility] Alkaline Phosphatase 66 40 - 150 U/L 06/03/2024 10:14 AM CDT [facility] ALT <6 0 - 55 U/L 06/03/2024 10:14 AM CDT [facility] AST 14 5 - 34 U/L 06/03/2024 10:14 AM CDT [facility] Protein Total 4.3(L) 6.4 - 8.3 gm/dL 06/03/2024 10:14 AM CDT [facility] Albumin 1.8(L) 3.4 - 5.0 gm/dL 06/03/2024 10:14 AM CDT [facility] Bilirubin Total 0.4 0.2 - 1.2 mg/dL 06/03/2024 10:14 AM CDT [facility] eGFR by CKD-EPI >90 >=90 mL/min/1.7 3 m2 06/03/2024 10:14 AM CDT [facility] Blood BLOOD SPECIMEN / Unknown Lab Venipuncture / Unknown 06/03/2024 9:47 AM CDT 06/03/2024 9:54 AM CDT Radha Nicolas MD LAB - CHEMISTRY [place] [facility] Organization Address City/State/ZIP Co de Phone Number [facility] [address] [place], [place] [id number] * (ABNORMAL) HEMOGLOBIN A1C (05/23/2024 2:49 PM CDT) Pathologist [facility] Hemoglobin A1c 7.5(H) <5.7 % 05/23/2024 3:45 PM CDT [facility] Estimated Average Glucose 169 mg/dL 05/23/2024 3:45 PM CDT [facility] Blood BLOOD SPECIMEN / Unknown Venipuncture / Unknown 05/23/2024 2:49 PM CDT 05/23/2024 3:27 PM CDT Narrative [facility] - 05/23/2024 3:45 PM CDT [...] Felton MD LAB - CHEMISTRY [place] [facility] [address] [place] [address] * CHLAMYDIA + GC AMPLIFIED PROBE (05/16/2024 11:42 PM CDT) Pathologist [facility] Chlamydia Amplified Probe Negative Negative 05/17/2024 8:07 PM CDT [facility] GC Amplified Probe Negative Negative 05/17/2024 8:07 PM CDT [facility] Other URINE / Unknown Collection / Unknown 05/16/2024 11:42 PM CDT 05/16/2024 11:56 PM CDT Narrative [facility] - 05/17/2024 8:07 PM CDT Results based on detection/no detection of ribosomal RNA by amplified method. Sidney Gray MD LAB - MICROBIO LOGY ORDERABLES Performing Organization Address [facility] Co de Phone Number [facility] [address] [place] [address], [facility] [phone] * HIV-1 HIV-2 ANTIBODY + HIV P24 AG PANEL (04/24/2024 12:27 PM CDT) [facility] HIV1/2 Ab + P24 Ag Non Reactive Non Reactive 04/24/2024 1:22 PM CDT [facility] Blood BLOOD SPECIMEN / Unknown Venipuncture / Unknown 04/24/2024 12:27 PM CDT 04/24/2024 12:40 PM CDT Narrative [facility] - 04/24/2024 1:22 PM CDT No Laboratory evidence of HIV infection. Sidney Gray MD LAB - CHEMISTR Y ORDERABLES Performing Organization Address City/[facility]/ZIP Co de Phone Number [facility] [address] [place] [phone] * HEPATITIS C ANTIBODY (11/10/2023 2:55 PM CAGE FIGHTER) HCV Antibody Screen Non Reactive Non Reactive 11/10/2023 4:00 PM CAGE FIGHTER [facility] Blood BLOOD SPECIMEN / Unknown Venipuncture / Unknown 11/10/2023 2:55 PM CAGE FIGHTER 11/10/2023 3:13 PM CAGE FIGHTER Narrative [facility] - 11/10/2023 4:00 PM CAGE FIGHTER Non Reactive - Antibodies to Hepatitis C virus (HCV) were not detected, result does not exclude early acute HCV infection. Eb Nye MD LAB - CHEMISTRY [place] [facility] [address] [place] [address] from Last 3 Months or Most Recently [...]
--- OUTSIDE RECORDS SUMMARY | 2024-11-02 12:43 | XMS_ITS | Clinical Summary ---
Author Organization [facility] Address [address] [place] [address] Phone Care Team Providers Care Pull Through Hooker Name Role Phone Provider, None Primary Care [...] Description 10/05/2024 Patient Outreach [facility] [address] [place] [phone] Navigator, Digital Health Social Concerns 10/03/2024 9:36 PM SCHEDULE CLERK - 10/03/2024 10:46 PM SCHEDULE CLERK Emergency [facility] Emergency [address] [place] [phone] Suzanne Phillips APRN, SCREW MACHINE SETTER Viral illness Discharge Disposition: Discharged to home or Selfcare 10/03/2024 Travel 09/16/2024 7:09 PM SCHEDULE CLERK - 09/16/2024 9:00 PM SCHEDULE CLERK Emergency [facility] Emergency [address] [place] [phone] Suzanne Phillips APRN, SCREW MACHINE SETTER RSV (respiratory syncytial virus infection) Discharge Disposition: Discharged to home or Selfcare 09/16/2024 Travel 09/11/2024 Patient Outreach [facility] [address] [phone] Michelle Longo ED Follow-up 09/07/2024 8:11 AM SCHEDULE CLERK - 09/07/2024 11:00 AM SCHEDULE CLERK Emergency [facility] Emergency [address] [place] [phone] Antoine Hicks MD Tooth abscess Discharge Disposition: Left Against Medical Advice 09/07/2024 Travel 08/24/2024 10:14 PM SCHEDULE CLERK - 08/24/2024 10:34 PM SCHEDULE CLERK Emergency [facility] Emergency [address] [place] [phone] Franc George PAC Thumb laceration, left, initial encounter Discharge Disposition: Discharged to home or Selfcare 08/24/2024 Travel 08/21/2024 2:19 PM SCHEDULE CLERK - 08/21/2024 2:31 PM SCHEDULE CLERK Emergency [facility] Emergency [address] [place] [phone] Suzanne Phillips, JO ANN, SCREW MACHINE SETTER Discharge Disposition: LWBS 08/21/2024 Travel 08/04/2024 10:55 AM SCHEDULE CLERK - 08/04/2024 1:21 PM SCHEDULE CLERK Emergency [facility] Emergency [address] [place] [address] Suzanne Phillips, JO ANN, SCREW MACHINE SETTER Pertussis exposure Discharge Disposition: Discharged to home [...] on file Legal Sex Female 10:39 AM SCHEDULE CLERK Gender Identity Not on file Sexual Orientation Not on file Last Filed Vital Signs Vital Sign Reading Time Taken Comments Blood Pressure 112/76 10/03/2024 9:41 PM SCHEDULE CLERK Pulse 76 10/03/2024 9:41 PM SCHEDULE CLERK Temperature 36 C (96.8 F) 10/03/2024 9:41 PM SCHEDULE CLERK Respiratory Rate 18 10/03/2024 9:41 PM SCHEDULE CLERK Oxygen Saturation 98% 10/03/2024 9:41 PM SCHEDULE CLERK Inhaled Oxygen Concentration - - Weight 43.5 kg (96 lb) 10/03/2024 9:41 PM SCHEDULE CLERK Height 149.9 cm (4' 11 ) 10/03/2024 9:41 PM SCHEDULE CLERK Body Mass Index 19.39 10/03/2024 9:41 PM SCHEDULE CLERK Plan of Treatment Health Maintenance Due Date [...] CHEST SINGLE VIEW STAT 10/03/2024 10:05 PM SCHEDULE CLERK GROUP A STREP BY PCR STAT 10/03/2024 9:51 PM SCHEDULE CLERK RSV,SARS-COV-2,INFLUEN ZA A&B BY PCR STAT 10/03/2024 9:47 PM SCHEDULE CLERK XR CHEST 2 VIEWS STAT 09/16/2024 7:23 PM SCHEDULE CLERK RSV,SARS-COV-2,INFLUEN ZA A&B BY PCR STAT 09/16/2024 6:47 PM SCHEDULE CLERK INCISION AND DRAINAGE Routine 09/07/2024 10:49 AM SCHEDULE CLERK POCT GLUCOSE STAT 09/07/2024 10:41 AM SCHEDULE CLERK GOLD TOP TUBE STAT 09/07/2024 8:23 AM SCHEDULE CLERK CBC WITH AUTO DIFFERENTIAL STAT 09/07/2024 8:23 AM SCHEDULE CLERK EXTRA TUBES STAT 09/07/2024 8:23 AM SCHEDULE CLERK ACETAMINOPHEN (TYLENOL) STAT 09/07/2024 8:23 AM SCHEDULE CLERK CMP (COMPREHENSIVE METABOLIC PANEL) STAT 09/07/2024 8:23 AM SCHEDULE CLERK COMPLETE BLOOD COUNT (CBC) WITH DIFF STAT 09/07/2024 8:23 AM SCHEDULE CLERK LACERATION REPAIR Routine 08/24/2024 10: 17 PM SCHEDULE CLERK B. PERTUSSIS AB, IGG, TURNER BORDG STAT 08/04/2024 11:29 AM SCHEDULE CLERK RSV,SARS-COV-2,INFLUEN ZA A&B BY PCR STAT 08/04/2024 11:00 AM SCHEDULE CLERK XR CHEST 2 VIEWS STAT 08/04/2024 10:5 6 AM SCHEDULE CLERK from Last 3 Months Results * XR CHEST SINGLE VIEW (10/03/2024 10:05 PM SCHEDULE CLERK) Anatomical Region Laterality Modality Chest N/A Digital Radiogra phy 10/03/2024 10:1 8 PM SCHEDULE CLERK Impressions 10/03/2024 10:21 PM SCHEDULE CLERK IMPRESSION: No acute cardiopulmonary abnormality. Narrative 10/03/2024 10:21 PM SCHEDULE CLERK EXAM DESCRIPTION: XR CHEST SINGLE VIEW REASON [...] signed by Raymundo AVALOS: ROBBIE Report ID: [id number] Reading Location: [place] [address] Procedure Note Raymundo Callahan MD - 10/03/2024 [...] Raymundo Callahan M.D. KH: ROBBIE Report ID: [id number] Reading Location: [place] [address] IMPRESSION: No acute cardiopulmonary abnormality. Suzanne Phillips APRN, SCREW MACHINE SETTER IMG DIAGNOSTIC ORDERA BLES Final Result * GROUP A STREP BY PCR (10/03/2024 9:51 PM SCHEDULE CLERK) GROUP A STREP BY PCR NOT DETECTED NOT DETECTED 10/03/2024 10:17 PM SCHEDULE CLERK [facility] Swab SPECIMEN FROM THROAT / Unknown Non-Phlebotomy Collection / Unknown 10/03/2024 9:51 PM SCHEDULE CLERK 10/03/2024 9:51 PM SCHEDULE CLERK Avery Giraldo MD MICROBIOLOGY - GENERAL OR DERABLES Final Result Performing Organization Address City/[facility]/ZIP Co de Phone Number [facility] [address] [place] [address] * RSV,SARS-COV-2,INFLUENZA A&B BY PCR (10/03/2024 9:47 PM SCHEDULE CLERK) Only the most recent of3 resultswithin the time period is included. FLU A Negative Negative, Error 10/03/2024 10:32 PM SCHEDULE CLERK [facility] FLU B Negative Negative 10/03/2024 10:32 PM SCHEDULE CLERK [facility] RESP SYNC VIRUS Negative Negative 10:32 PM SCHEDULE CLERK [facility] SARSCOV2 NOT DETECTED (Reference Range for this test is Not Detected) 10/03/2024 10:32 PM SCHEDULE CLERK [facility] Comment:This test was perfor med by a Reverse Squeegee Tender PCR Method. Swab NASOPHARYNGEAL SWAB / Unknown Non-Phlebotomy Collection / Unknown 10/03/2024 9:47 PM SCHEDULE CLERK 10/03/2024 9:51 PM SCHEDULE CLERK Narrative [facility] - 10/03/2024 10:32 PM SCHEDULE CLERK This test has not been FDA cleared or approved; the test has been authorized by FDA under an Emergency Use Authorization (EUA) for use by laboratories certified under the CLIA that meet the requirements to perform moderate, high or waived complexity tests. Authorized Fact Sheets about this test for providers and patients are available at: https://www.fda.gov/medical-devices/ucohbqbqv-eivevthgcl-eahfyfs-devices/emergen -us e-authorizations us Suzanne Phillips STRETCHER OPERATOR, SCREW MACHINE SETTER MICROBIOLOGY - GENERA L ORDERABLES Final Result Performing Organization Address City/[facility] Co de Phone Number [facility] [address] [place] [address] * XR CHEST 2 VIEWS (09/16/2024 7:23 PM SCHEDULE CLERK) Only the most recent of2 resultswithin the time period is included. Anatomical Region Laterality Modality Chest N/A Digital Radiogra phy 09/16/2024 8:30 PM SCHEDULE CLERK Impressions 09/16/2024 8:32 PM SCHEDULE CLERK IMPRESSION: No acute cardiopulmonary abnormality. Narrative 09/16/2024 8:32 PM SCHEDULE CLERK EXAM DESCRIPTION: XR CHEST 2 VIEWS REASON [...] Raymundo Obando M.D. KT: KT Report ID: [id number] Reading Location: [id number] Procedure Note Raymundo Obando MD - 09/16/2024 [...] Raymundo Obando M.D. KT: KT Report ID: [id number] Reading Location: [id number] IMPRESSION: No acute cardiopulmonary abnormality. Suzanne Phillips APRN, SCREW MACHINE SETTER IMG DIAGNOSTIC ORDERA BLES Final Result * Incision and Drainage (09/07/2024 10:49 AM SCHEDULE CLERK) Narrative Antoine Hicks MD - 09/07/2024 10:49 AM SCHEDULE CLERK Antoine Hicks MD 09/09/2024 4:10 PM Incision and Drainage Performed by: Antoine Hicks MD Authorized by: Antoine Hicks MD Consent: Consent obtained: Verbal and written [place] protocol: Patient identity confirmed: Verbally with patient [...] * (ABNORMAL) POCT Glucose (09/07/2024 10:41 AM SCHEDULE CLERK) [facility] GLUCOSE,BEDSID E POCT 407(HH) 70 - 99 mg/dL 09/07/2024 10:48 AM SCHEDULE CLERK [facility] Comment: RN Notified ZARA VELÁSQUEZ Blood 09/07/2024 10:4 1 AM SCHEDULE CLERK 09/07/2024 10:48 AM SCHEDULE CLERK us None Provider POINT OF CARE TESTING Final Resu lt Performing Organization Address [facility] Co de Phone Number [facility] [address] [place] [address] * Gold Top Tube (09/07/2024 8:23 AM SCHEDULE CLERK) Blood No Phlebotomy Charged / Unknown 09/07/2024 8:23 AM SCHEDULE CLERK 09/07/2024 9:34 AM SCHEDULE CLERK Antoine Hicks MD CHEMISTRY ORDERABLES Final Result Performing Organization Address [facility]/ZIP Co de Phone Number [facility] [address] [place] [address] * (ABNORMAL) CBC with Auto Differential (09/07/2024 8:23 AM SCHEDULE CLERK) [facility] Signature WBC 8.09 4.00 - 12.00 10(3)/mcL 09/07/2024 9:38 AM SCHEDULE CLERK [facility] RBC 4.83 3.80 - 5.30 10(6)/mcL 09/07/2024 9:38 AM [facility] HEMOGLOBIN (HGB) 12.7 12.0 - 15.8 g/dL 09/07/2024 9:38 AM [facility] HEMATOCRIT (HCT) 37.6 36.0 - 47.0 % 09/07/2024 9:38 AM [facility] MCV 77.8(L) 82.0 - 96.0 fL 09/07/2024 9:38 AM [facility] MCH 26.3 26.0 - 34.0 pg 09/07/2024 9:38 AM [facility] MCHC 33.8 31.0 - 36.0 g/dL 09/07/2024 9:38 AM [facility] PLATELET COUNT 308 140 - 440 10(3)/[facility] 09/07/2024 9:38 AM [facility] RDW 13.1 11.8 - 15.5 % 09/07/2024 9:38 AM [facility] MPV 10.9 9.7 - 12.4 fL 09/07/2024 9:38 AM [facility] NEUTROPHILS 81.0(H) 47.0 - 73.0 % 09/07/2024 9:38 AM [facility] LYMPHOCYTES 13.2(L) 18.0 - 42.0 % 09/07/2024 9:38 AM [facility] MONOCYTES 5.4 4.0 - 12.0 % 09/07/2024 9:38 AM [facility] EOSINOPHILS 0.2 0.0 - 5.0 % 09/07/2024 9:38 AM SCHEDULE CLERK [facility] BASOPHILS 0.2 0.0 - 1.0 % 09/07/2024 9:38 AM SCHEDULE CLERK [facility] ABSOLUTE NEUTROPHILS 6.54 1.60 - 7.70 10(3)/[facility] 09/07/2024 9:38 AM SCHEDULE CLERK [facility] ABSOLUTE LYMPHOCYTES 1.07(L) 1.30 - 3.20 10(3)/[facility] 09/07/2024 9:38 AM SCHEDULE CLERK [facility] ABSOLUTE MONOCYTES 0.44 0.20 - 1.00 10(3)/[facility] 09/07/2024 9:38 AM SCHEDULE CLERK [facility] ABSOLUTE EOSINOPHIL 0.02 0.00 - 0.40 10(3)/[facility] 09/07/2024 9:38 AM SCHEDULE CLERK [facility] ABSOLUTE BASOPHILS 0.02 0.00 - 0.10 10(3)/[facility] 09/07/2024 9:38 AM SCHEDULE CLERK [facility] NRBC PER 100 WBC 0 09/07/20 9:38 AM SCHEDULE CLERK [facility] Blood Venipuncture / Unknown 09/07/2024 8:23 AM SCHEDULE CLERK 09/07/2024 9:33 AM SCHEDULE CLERK Antoine Hicks MD HEMATOLOGY ORDERABLES Lillie l Result [facility] [address] [place] [address] * (ABNORMAL) Tylenol (Acetaminophen) [id number] (09/07/2024 8:23 AM SCHEDULE CLERK) ACETAMINOPHEN <3(L) 10 - 30 mcg/mL 09/07/2024 11:14 AM SCHEDULE CLERK [facility] Blood Venipuncture / Unknown 09/07/2024 8:23 AM SCHEDULE CLERK 09/07/2024 9:33 AM SCHEDULE CLERK Antoine Hicks MD CHEMISTRY ORDERABLES Final Result [facility] [address] [place] [address] * (ABNORMAL) Comprehensive Metabolic Panel (Cmp) [id number] (09/07/2024 8:23 AM [facility]) SODIUM 134(L) 136 - 145 mmol/L 09/07/2024 10:07 AM [facility] POTASSIUM 3.8 3.5 - 5.1 mmol/L 09/07/2024 10:07 AM [facility] CHLORIDE 101 98 - 107 mmol/L 09/07/2024 10:07 AM [facility] CO2, VENOUS 22 22 - 30 mmol/L 09/07/2024 10:07 AM [facility] ANION GAP 14.8 <18.0 mmol/L 09/07/2024 10:07 AM [facility] GLUCOSE 487(HH) 70 - 99 mg/dL 09/07/2024 10:07 AM [facility] BUN 12 5 - 18 mg/dL 09/07/2024 10:07 AM [facility] CREATININE, BLOOD 0.82 0.60 - 1.00 mg/dL 09/07/2024 10:07 AM [facility] BUN/CREATININE RATIO 15 12 - 20 ratio 09/07/2024 10:07 AM [facility] TOTAL PROTEIN 7.4 6.3 - 8.2 g/dL 09/07/2024 10:07 AM [facility] ALBUMIN 4.3 3.5 - 5.0 g/dL 09/07/2024 10:07 AM [facility] A/G RATIO 1.4 1.0 - 2.2 09/07/2024 10:07 AM [facility] CALCIUM 9.3 8.7 - 10.5 mg/dL 09/07/2024 10:07 AM [facility] T BILI 0.5 0.2 - 1.2 mg/dL 09/07/2024 10:07 AM SCHEDULE CLERK [facility] SGOT (AST) 8 5 - 34 U/L 09/07/2024 10:07 AM SCHEDULE CLERK [facility] SGPT (ALT) 10 0 - 55 U/L 09/07/2024 10:07 AM [facility] ALKALINE PHOSPHATASE 67 40 - 150 U/L 09/07/2024 10:07 AM [facility] GFR, ESTIMATED >60 >=60 09/07/2024 10:07 AM [facility] Comment: Creatinine Clearance is the preferred criteria for selecting drug dose adjustments in renally impaired patients. The GFR is provided as additional pertinent clinical information. GFR is reported in mL/min/1.73 sq m. Calculation based on the Chronic Kidney Disease Epidemiology Collaboration (CKD- EPI) equation refit without adjustment for race. GFR, EST. >60 >=60 024 10:07 AM [facility] GFR, EST. NONAFRICAN >60 >=60 09/07/2024 10:07 AM [facility] Blood Venipuncture / Unknown 09/07/2024 8:23 AM SCHEDULE CLERK 09/07/2024 9:33 AM SCHEDULE CLERK us Antoine Hicks MD CHEMISTRY ORDERABLES Final Result [facility] [address] [place] [address] * Laceration Repair (08/24/2024 10:17 PM SCHEDULE CLERK) Narrative Chintan Harris MD - 08/24/2024 10:17 PM SCHEDULE CLERK Franc George PAC 08/24/2024 10:26 PM Laceration Repair Performed by: Franc George PAC Authorized by: Franc George PAC Consent: Consent obtained: Verbal Consent given by: Patient Risks, benefits, and alternatives were discussed: yes Risks discussed: Infection, pain, vascular damage, tendon damage, poor cosmetic result, poor wound healing, need for additional repair, nerve damage and retained foreign body Alternatives discussed: No treatment [place] protocol: Procedure explained and questions answered to [...] completion: Tolerated well, no immediate complications Franc George PAC PROCEDURE/MINOR SURGI MARCO ANTONIO ORDERABLES Final Result * B. PERTUSSIS AB, IGG, VERMILLION GABINO (08/04/2024 11:29 AM SCHEDULE CLERK) B. PERTUSSIS IGG Negative Negative 08/10/20 1:56 PM [facility] Comment: No IgG antibodies to pertussis toxin (PT) detected. Results may be falsely negative in patients with < 2 weeks of symptoms. B. PERTUSSIS VALUE 26.76 IU/mL 2023 1:56 PM [facility] Comment: REFERENCE VALUE <40 IU/mL = Negative >=40 - <100 IU/mL = Borderline >=100 IU/mL = Positive ADDITIONAL INFORMATION This test was developed and its performance characteristics determined by [facility] in a manner consistent with CLIA requirements. This test has not been cleared or approved by the U.S. Food and Drug Administration. Test Performed by: [facility] - [address] [address] Hand Bander: Hilary Lugo Ph.D.; CLIA# [id number] Blood Venipuncture / Unknown 08/04/2024 11:29 AM SCHEDULE CLERK 08/04/2024 11:38 AM SCHEDULE CLERK us Suzanne Phillips STRETCHER OPERATOR, SCREW MACHINE SETTER LAB SEND OUTS Final Result [facility] from Last 3 Months Insurance MEDICAID [place] Care Teams Pull Through Hooker Relationship Specialty Start Date End Date Provider, None [place] PCP - General 08/04/24
--- OUTSIDE RECORDS SUMMARY | 2024-11-02 12:43 | XMS_ITS ---
Author Organization [facility] Address [address] [place] [address] Phone Care Team Providers Care Mix Crusher Operator Name Role Phone Provider, None Primary Care Provider Unavailabl e [facility] Status:Enrolled (Active) Start date:10/04/2024 Enrollment date:10/04/2024 Related social drivers of health:Intimate Partner Violence, Social Connections, Alcohol Use, Financial Resource Strain, Depression, Stress, Physical Activity, Food Insecurity, Transportation Needs, Housing Stability, Utilities Continued Care and Services Coordination
--- OUTSIDE RECORDS SUMMARY | 2024-11-02 12:43 | XMS_ITS | Encounter Summary ---
Author Organization [facility] Address [address] [place] [address] Care Team Providers Care Machine Joint Cutter Name Role Phone Unavailable Primary Care Provider Unavailabl e Reason for Visit * Reason Onset Date Comments Appointment 11/02/2023 New MFM appt nee ded Encounter Details Date Type Department Care Team (Late st Contact Info) Description 11/02/2023 Telephone [facility] [address] [place] [phone] Quirino Jhaveri MD [address] [place] [address] Appointment (New MFM appt needed) [...] appt to 11/04. LMTCB or respond to [employer] message. L AIRCREWMAN TACTICAL HELICOPTER * Telephone Encounter - Coco Mcclellan RN - 11/02/2023 11:27 AM CST PC to pt. Pt is a Type 1DM followed by Dr. Joanne Marquez.at [facility]. Pt states LMP was ~08/22/23. Pt has been seen by OB in [place] however Dr. Marquez was referring to [facility] based on most recent A1C. Pt unsure what a1C was. Unable to view in CE.Appt made for patient and appt info sent via [employer]. L AIRCREWMAN TACTICAL HELICOPTER * Telephone Encounter - Zay Cunningham - 11/02/2023 11:12 AM CST Pt calling per referring Provider Jimmy for high risk MFM appt, please call to schedule. L AIRCREWMAN TACTICAL HELICOPTER documented in this encounter Plan of Treatment Not on file documented as of this encounter Visit Diagnoses Not on filedocumented in this encounter
--- OUTSIDE RECORDS SUMMARY | 2024-11-02 12:43 | XMS_ITS | Patient Health Summary ---
Author Organization [facility] Address [address] [place] [address] Care Team Providers Care Supervisor Sample Name Role Phone Unavailable Primary Care Provider Unavailabl e Note from [facility],non-owned Affiliates and Associated Physician Practices is amultiple site organization consisting of ambulatory clinics and hospital sitesin [place], [place], [place] and [place]. This disclosure is being madepursuant to the Care Everywhere program and may not contain all information available regarding this patient. Last updated 18.[facility] Allergies * Diphenhydramine(Swelling) -Medium Criticality * Garlic(Rash) -High Criticality * Mushroom Extract Complex(Angioedema) -High Criticality * Peanut Butter Flavor(Anaphylaxis) -High Criticality,Inactive Medications * Be aware that medications may not be up to date on this document. Alwaysverify current medications with the patient. * Continuous Blood Gluc Transmit (Dexcom G6 Transmitter) [facility](Started 09/28/2023) as directed * insulin lispro (HumaLOG) [...] 03/01/2025 * Insulin Pen Needle (TechLite Pen [place]) 32G X 4 MM MISC(Started 03/01/2024) Use [...] and heating? Not hard at all 05/31/2024 [facility] [place] of Occupat ional Health - Occupational Stress [...] place to sleep or slept in a fci (including now)? No 05/31/2024 Colo Depression Scale Answer Date Recorded Colo Depression Scale Total 3 06/03/2024 The thought of harming myself has occurred to me . Never 06/03/2024 Sex and Gender Information Value Date Recorded Sex Assigned at Not on file Gender Identity Not on file Sexual Orientation Not on file Last Filed Vital Signs Vital Sign Reading Time Taken Comments Blood Pressure 107/59 08/24/2024 9:21 AM TIRE FINISHER Pulse 95 08/24/2024 9:21 AM TIRE FINISHER Temperature 36.7 C (98 F) 06/30/2024 9:00 PM CDT Respiratory Rate 20 06/30/2024 9:00 PM CDT Oxygen Saturation 99% 06/30/2024 9:00 PM CDT Inhaled Oxygen Concentration - - Weight 44 kg (97 lb) 08/24/2024 9:21 AM TIRE FINISHER Height 149.9 cm (4' 11 ) 05/31/2024 [...] for Arrest of dilation, delivered, current hospitalization ([facility]), Pre- existing type 1 diabetes mellitus during , antepartum ([facility]) * BLOOD GASES CORD SARITHA (ISTAT)(Performed 06/02/2024) * BLOOD GASES CORD ART (ISTAT)(Performed 06/02/2024) * SECTION (EMERGENCY)(Performed 06/02/2024) Performed for Arrest of dilation, delivered, current hospitalization ([facility]) * GLUCOSE - POINT OF CARE(Performed 06/02/2024) [...] 1 diabetes mellitus in , third trimester ([facility]), Tobacco use * HEMOGLOBIN A1C(Performed 05/23/2024) Performed for Type 1 diabetes mellitus during in third trimester ([facility]) * COMPREHENSIVE METABOLIC PANEL(Performed 05/23/2024) Performed for Type 1 diabetes mellitus during in third trimester ([facility]) * GLUCOSE - POINT OF CARE(Performed 05/23/2024) * URINALYSIS - POCT (IP) BEAKER INTERFACE(Performed 05/23/2024) * BIOPHYSICAL PROFILE W NST(Performed 05/23/2024) Performed for Type 1 diabetes mellitus in , third trimester ([facility]), Tobacco use * LAB RESULTS ORDER(Performed 05/20/2024) [...] 1 diabetes mellitus during in third trimester ([facility]), contractions ([facility]) * TYPE + SCREEN PANEL(Performed 05/16/2024) * PHOSPHORUS BLOOD(Performed 05/16/2024) Performed for Type 1 diabetes mellitus during in third trimester ([facility]), contractions ([facility]) * MAGNESIUM BLOOD(Performed 05/16/2024) Performed for Type 1 diabetes mellitus during in third trimester ([facility]), contractions ([facility]) * HYDROXYBUTYRATE BETA(Performed 05/16/2024) Performed for Type 1 diabetes mellitus during in third trimester ([facility]), contractions ([facility]) * COMPREHENSIVE METABOLIC PANEL(Performed 05/16/2024) Performed for Type 1 diabetes mellitus during in third trimester ([facility]), contractions ([facility]) * CBC W AUTO DIFFERENTIAL(Performed 05/16/2024) Performed for Type 1 diabetes mellitus during in third trimester ([facility]), contractions ([facility]) * GLUCOSE - POINT OF CARE(Performed 05/16/2024) * URINALYSIS - POCT (IP) BEAKER INTERFACE(Performed 05/16/2024) * GLUCOSE - POINT OF CARE(Performed 05/16/2024) * BIOPHYSICAL PROFILE W NST(Performed 05/16/2024) Performed for Type 1 diabetes mellitus in , third trimester ([facility]), Tobacco use * GLUCOSE - POINT OF CARE(Performed 05/09/2024) * URINALYSIS - POCT (IP) BEAKER INTERFACE(Performed 05/09/2024) * BIOPHYSICAL PROFILE W NST(Performed 05/09/2024) Performed for Type 1 diabetes mellitus in , third trimester ([facility]), Tobacco use * CULTURE URINE(Performed 05/02/2024) Performed for Acute cystitis without hematuria * URINALYSIS - POCT (IP) BEAKER INTERFACE(Performed 05/02/2024) * BIOPHYSICAL PROFILE W NST(Performed 05/02/2024) Performed for Type 1 diabetes mellitus in , third trimester ([facility]), Tobacco use * PHOSPHORUS BLOOD(Performed 04/24/2024) Performed for Supervision of high risk in third trimester ([facility]), DM type 1, not at goal ([facility]) * MAGNESIUM BLOOD(Performed 04/24/2024) Performed for Supervision of high risk in third trimester ([facility]), DM type 1, not at goal ([facility]) * HYDROXYBUTYRATE BETA(Performed 04/24/2024) Performed for Supervision of high risk in third trimester ([facility]), DM type 1, not at goal ([facility]) * COMPREHENSIVE METABOLIC PANEL(Performed 04/24/2024) Performed for Supervision of high risk in third trimester ([facility]), DM type 1, not at goal ([facility]) * CBC W/O DIFFERENTIAL(Performed 04/24/2024) Performed for Supervision of high risk in third trimester ([facility]) * SYPHILIS ANTIBODY CASCADING REFLEX(Performed 04/24/2024) Performed for Supervision of high risk in third trimester ([facility]) * HIV-1 HIV-2 ANTIBODY + HIV P24 AG PANEL(Performed 04/24/2024) Performed for Supervision of high risk in third trimester ([facility]) * URINALYSIS - POCT (IP) BEAKER INTERFACE(Performed 04/24/2024) * GLUCOSE - POINT OF CARE(Performed 04/24/2024) * BIOPHYSICAL PROFILE W NST(Performed 04/24/2024) Performed for Type 1 diabetes mellitus in , third trimester ([facility]), Tobacco use * CULTURE URINE(Performed 04/05/2024) Performed for Supervision of high risk in third trimester ([facility]) * GLUCOSE - POINT OF CARE(Performed 04/05/2024) [...] 03/08/2024) Performed for Encounter for anatomic survey ([facility]) * SYPHILIS ANTIBODY CASCADING REFLEX(Performed 03/08/2024) Performed [...] with uncertain viability, single or unspecified fetus ([facility]) * GLUCOSE - POINT OF CARE(Performed 11/24/2023) * URINALYSIS - POCT (IP) BEAKER INTERFACE(Performed 11/24/2023) * PROTEIN URINE TIMED QUANTITATIVE(Performed 11/24/2023) Performed for Supervision of high risk , antepartum ([facility]) * LAB RESULTS ORDER(Performed 11/16/2023) * URINALYSIS - POCT (IP) BEAKER INTERFACE(Performed 11/10/2023) * TYPE + SCREEN PANEL(Performed 11/10/2023) Performed for Supervision of high risk , antepartum ([facility]) * RUBELLA ANTIBODY IGG(Performed 11/10/2023) Performed for Supervision of high risk , antepartum ([facility]) * FERRITIN(Performed 11/10/2023) Performed for Supervision of high risk , antepartum ([facility]) * TSH REFLEX FREE T4(Performed 11/10/2023) Performed for Supervision of high risk , antepartum ([facility]) * HEMOGLOBIN A1C(Performed 11/10/2023) Performed for Supervision of high risk , antepartum ([facility]) * PROTEIN CREATININE RATIO URINE RANDOM PNL(Performed 11/10/2023) Performed for Supervision of high risk , antepartum ([facility]) * COMPREHENSIVE METABOLIC PANEL(Performed 11/10/2023) Performed for Supervision of high risk , antepartum ([facility]) * SYPHILIS ANTIBODY CASCADING REFLEX(Performed 11/10/2023) Performed for Supervision of high risk , antepartum ([facility]) * HEPATITIS C ANTIBODY(Performed 11/10/2023) Performed for Supervision of high risk , antepartum ([facility]) * HEPATITIS B SURFACE ANTIGEN W RFLX CONFIRMATION(Performed 11/10/2023) Performed for Supervision of high risk , antepartum ([facility]) * HIV-1 HIV-2 ANTIBODY + HIV P24 AG PANEL(Performed 11/10/2023) Performed for Supervision of high risk , antepartum ([facility]) * CBC W AUTO DIFFERENTIAL(Performed 11/10/2023) Performed for Supervision of high risk , antepartum ([facility]) * TRICHOMONAS VAGINALIS AMPLIFIED PROBE(Performed 11/10/2023) Performed for Supervision of high risk , antepartum ([facility]) * CHLAMYDIA + GC AMPLIFIED PROBE(Performed 11/10/2023) Performed for Supervision of high risk , antepartum ([facility]) * CULTURE URINE(Performed 11/10/2023) Performed for Supervision of high risk , antepartum ([facility]) * SONOGRAM - COMPLETE(Performed 11/10/2023) Performed for Encounter to establish gestational age using ultrasound ([facility]) Results * (ABNORMAL) URINALYSIS - POCT () BEAKER INTERFACE (08/24/2024 10:11 AM TIRE FINISHER) Only the most recent of16 resultswithin the time period is included. Color UA POCT Dark Yellow Straw, Yellow, Dark Yellow, Light Yellow 08/24/2024 10:14 AM TIRE FINISHER [facility] Clarity UA POCT Clear Clear 10:14 AM TIRE FINISHER [facility] Specific [place] UA POCT >=1.030 1.005 - 1.030 08/24/2024 10:14 AM TIRE FINISHER [facility] pH UA POCT 5.5 5.0 - 8.0 pH 08/24/2024 10:[address] [facility] Protein UA POCT Trace(A) Negative 10:14 AM TIRE FINISHER [facility] Blood UA POCT 3+(A) Negative 08/24/2024 10:14 AM TIRE FINISHER [facility] Leukocyte UA POCT Negative Negative 08/24/2024 10:14 AM TIRE FINISHER [facility] Nitrite UA POCT Negative Negative 10:14 AM TIRE FINISHER [facility] Glucose UA POCT 3+(A) Negative 10:14 AM TIRE FINISHER [facility] Ketone UA POCT 1+(A) Negative 08/24/2024 10:14 AM TIRE FINISHER [facility] Bilirubin UA POCT Negative Negative 08/24/2024 10:14 AM TIRE FINISHER [facility] Urobilinogen UA POCT 0.2 0.1 - 1.0 EU/dL 08/24/2024 10:[address] [facility] Urine URINE / Unknown 08/24/2024 1 0:11 AM TIRE FINISHER 08/24/2024 10:14 AM TIRE FINISHER Kishore Small DO LAB - POINT OF CARE ORDERABLES Performing Organization Address City/[facility]/ZIP Co de Phone Number [facility] [address] [place] [phone] * HCG URINE QUALITATIVE - POCT (IP) INTERFACED (08/24/2024 9:31 AM TIRE FINISHER) HCG Qual Urine Negative Negative 08/24/2024 9:38 AM TIRE FINISHER [facility] Urine URINE / Unknown 08/24/2024 9 :31 AM TIRE FINISHER 08/24/2024 9:38 AM TIRE FINISHER [facility] - POINT OF CARE ORDERABLES Performing Organization Address [facility] de Phone Number [facility] [address] [place] [phone] * (ABNORMAL) GLUCOSE - POINT OF CARE (08/24/2024 9:21 AM TIRE FINISHER) Only the most recent of112 resultswithin the time period is included. Glucose WB/POC 305(H) 70 - 99 mg/dL 08/24/2024 9:30 AM TIRE FINISHER [facility] Specimen Type Cap Fingerstick 2023 9:30 AM TIRE FINISHER [facility] Blood BLOOD SPECIMEN / Unknown 08/24/2024 9:21 AM TIRE FINISHER 08/24/2024 9:30 AM TIRE FINISHER Kishore Small LAB - POINT OF CARE ORDERABLES Performing Organization Address [facility] Co de Phone Number [facility] [address] [place] [phone] * IMAGING RADIOLOGY XRAY RESULTS ORDER (06/05/2024 6:10 PM CDT) Anatomical Region Laterality Modality Other Narrative 06/05/2024 6:10 PM CDT Ordered by an unspecified provider. Scanned Document IMAGING * PREPARE (CROSSMATCH) RBC UNIT(S), 2 Units (06/04/2024 1:41 AM CDT) Unit Description AS1 LR PRBC [facility] Unit ABO A [facility] Unit Rh POS [facility] Product Number R02 [facility] Unit Donor # [id number] [facility] Unit Status released [facility] Product Code [id number] [facility] Blood Type Barcode 6200 [facility] Expiration Date S [facility] Unit Description AS1 LR PRBC [facility] Unit ABO A [facility] Unit Rh POS [facility] Product Number R02 [facility] Unit Donor # [id number] [facility] Unit Status released [facility] OD BANK LAB Product Code [id number] [facility] BL OOD BANK LAB Blood Type Barcode 6200 [facility] Expiration Date S [facility] Blood Bank BLOOD SPECIMEN / Unknown 05/31/2024 4:33 PM CDT John Mckeon MD LAB - BLOOD BANK ORD ERABLES [facility] [address] [phone] * (ABNORMAL) COMPREHENSIVE METABOLIC PANEL (06/03/2024 9:47 AM CDT) Only the most recent of10 resultswithin the time period is included. Glucose 124(H) 70 - 105 mg/dL 06/03/2024 10:14 AM CDT [facility] Sodium 137 136 - 145 mmol/L 06/03/2024 10:14 AM CDT [facility] Potassium 3.4(L) 3.5 - 5.1 mmol/L 06/03/2024 10:14 AM CDT [facility] Chloride 108(H) 98 - 107 mmol/L 06/03/2024 10:14 AM CDT [facility] CO2 21(L) 22 - 29 mmol/L 06/03/2024 10:14 AM CDT [facility] Calcium 7.7(L) 8.4 - 10.4 mg/dL 06/03/2024 10:14 AM CDT [facility] Anion Gap 8 6 - 16 mmol/L 06/03/2024 10:14 AM CDT [facility] BUN 14 5.3 - 18.7 mg/dL 06/03/2024 10:14 AM CDT [facility] Creatinine 0.70 0.57 - 1.11 mg/dL 06/03/2024 10:14 AM CDT [facility] Alkaline Phosphatase 66 40 - 150 U/L 06/03/2024 10:14 AM CDT [facility] ALT <6 0 - 55 U/L 06/03/2024 10:14 AM CDT [facility] AST 14 5 - 34 U/L 06/03/2024 10:14 AM [facility] Protein Total 4.3(L) 6.4 - 8.3 gm/dL 06/03/2024 10:14 AM [facility] Albumin 1.8(L) 3.4 - 5.0 gm/dL 06/03/2024 10:14 AM [facility] Bilirubin Total 0.4 0.2 - 1.2 mg/dL 06/03/2024 10:14 AM [facility] eGFR by CKD-EPI >90 >=90 mL/min/1.7 3 m2 06/03/2024 10:14 AM [facility] Blood BLOOD SPECIMEN / Unknown Lab Venipuncture / Unknown 06/03/2024 9:47 AM CDT 06/03/2024 9:54 AM CDT Radha Nicolas MD LAB - CHEMISTRY [place] [facility] Organization Address City/State/ZIP Co de Phone Number [facility] [address] [place] [address] * (ABNORMAL) CBC W/O DIFFERENTIAL (06/03/2024 5:04 AM CDT) Only the most recent of2 resultswithin the time period is included. [facility] Signature WBC 10.8(H) 4.0 - 10.7 x10E9/L 06/03/2024 6:20 AM [facility] RBC Count 3.31(L) 3.90 - 5.20 x10E12/L 06/03/2024 6:20 AM CDT [facility] Hemoglobin 9.3(L) 11.9 - 15.8 g/dL 06/03/2024 6:20 AM CDT [facility] Hematocrit 27.3(L) 34.8 - 46.1 % 06/03/2024 6:20 AM CDT [facility] MCV 82.5 80.0 - 98.0 fL 06/03/2024 6:20 AM CDT [facility] MCH 28.1 26.7 - 33.6 pg 06/03/2024 6:20 AM CDT [facility] MCHC 34.1 31.7 - 36.3 g/dL 06/03/2024 6:20 AM CDT [facility] RDW-CV 11.9 11.3 - 14.8 % 06/03/2024 6:20 AM CDT [facility] Platelet Count 215 150 - 420 x10E9/L 06/03/2024 6:20 AM CDT [facility] MPV 11.0 7.8 - 11.4 fL 06/03/2024 6:20 AM CDT [facility] Blood BLOOD SPECIMEN / Unknown Lab Venipuncture / Unknown 06/03/2024 5:04 AM CDT 06/03/2024 6:07 AM CDT Lizet Sanchez MD LAB - HEMATOLOGY ORD ERABLES Performing Organization Address City/State/[facility] Co de Phone Number [facility] [address] [place] [address] * PATHOLOGY TISSUE EXAM (STL) (06/02/2024 10:16 AM CDT) Case Report Surgical Pathology Report Case: [id number] Authorizing Provider: Radha Nicolas MD Collected: 06/02/2024 10:16 AM Ordering Location: [facility] 5 LDR Received: 06/05/2024 10:44 AM Pathologist: Sakina Rios MD Specimen: Placenta 3rd Trimester 06/06/2024 2:31 PM CDT [facility] Final Diagnosis Placenta, delivery - Mature placenta - 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 Procedure: section. 06/06/2024 2:31 PM [facility] Gross Description The specimen is [...] Sectioning shows red-purple and spongy cut surfaces,. Custom Feed Mill Operator Helper sections submitted as follows: A1-umbilical cord and membrane roll, [id number], IKD 06/06/2024 2:31 PM [facility] Microscopic Description Microscopic examination substantiates the above diagnosis. 06/06/2024 2:31 PM [facility] Pathologist Location at [facility] 06/06/2024 2:31 PM [facility] Disclaimer All histochemical and/or immunohistochemical results are interpreted with controls that demonstrate appropriate staining reactions before reporting results. Note on use of immunocytochemistry reagents: This test was developed and its performance characteristic determined by [facility] / [facility], Department of Laboratory Medicine. It has not [...] interpreted with caution. 06/06/2024 2:31 PM CDT [facility] Embedded Images 06/06/2024 2:31 PM CDT [facility] Pathology/Cytology ENTIRE PLACENTA / Unknown 06/02/2024 10:16 AM CDT 06/05/2024 10:44 AM CDT Comment:Pre-op diagnosis: Arrest of dilation, delivered, current hospitalization ([facility]) [O62.1] Radha Nicolas MD LAB - PATHOLOGY/CYTO LOGY ORDERABLES [facility] [address] [place] [address] * (ABNORMAL) BLOOD GASES CORD SARITHA (ISTAT) (06/02/2024 10:05 AM CDT) pH Cord Venous POCT 7.27(L) 7.28 - 7.40 pH 06/02/2024 10:14 AM [facility] pCO2 Cord Venous POCT 50.0(H) 35 - 45 mm hg 06/02/2024 10:14 AM T [facility] pO2 Cord Venous POCT 16(L) 22 - 33 mm hg 06/02/2024 10:14 AM CDT [facility] HCO3 Cord Arterial POCT 23.2 22 - 24 mmol/L 06/02/2024 10:14 AM T [facility] BE Cord Venous POCT Calc -4 -6.4 - 1.6 mmol/L 06/02/2024 10:14 AM [facility] TCO2 Cord Venous POCT 25 22 - 30 mmol/L 06/02/2024 10:14 AM [facility] O2 Saturation % Cord Venous Calc POCT 18 % 06/02/2024 10:14 AM CDT [facility] Site CORD SARITHA 06/02/2024 10:14 AM T [facility] Sample iSTAT CORD SARITHA 06/02/2024 10:14 AM CDT [facility] Blood CORD BLOOD SPECIMEN / Unknown 06/02/2024 10:05 AM CDT 06/02/2024 10:14 AM CDT Radha Nicolas MD LAB - POINT OF CARE ORDERABLES [facility] [address] [place] [phone] * (ABNORMAL) BLOOD GASES CORD ART (ISTAT) (06/02/2024 10:01 AM CDT) pH Cord Arterial POCT 7.19(L) 7.20 - 7.34 pH 06/02/2024 10:14 AM CDT [facility] pCO2 Cord Arterial POCT 66.8(H) 45 - 55 mm hg 06/02/2024 10:14 AM CDT [facility] pO2 Cord Arterial POCT <15 12 - 25 mm hg 06/02/2024 10:14 AM CDT [facility] HCO3 Cord Arterial POCT 25.5(H) 22 - 24 mmol/L 06/02/2024 10:14 AM CDT [facility] BE Cord Arterial POCT -5(L) -2.9 - 8.3 mmol/L 06/02/2024 10:14 AM CDT [facility] TCO2 Cord Arterial POCT 27 mmol/L 06/02/2024 10:14 AM CDT [facility] O2 Saturation Cord Art % Calc POCT 7 % 06/02/2024 10:14 AM CDT [facility] Site CORD ART 06/02/2024 10:14 AM CDT [facility] Sample iSTAT CORD ART 06/02/2024 10:14 AM CDT [facility] Blood CORD BLOOD SPECIMEN / Unknown 06/02/2024 10:01 AM CDT 06/02/2024 10:14 AM CDT Radha Nicolas MD LAB - POINT OF CARE ORDERABLES Performing Organization Address City/[facility]/ZIP Co de Phone Number [facility] [address] [place] [phone] * EPIDURAL BLOCK PERF (06/01/2024 6:34 PM CDT) Narrative Wilma Barraza APRN-ROLLER PRINT TENDER - 06/01/2024 6:34 PM CDT Wilma Barraza APRN-[employer] 06/01/2024 6:34 PM Neuraxial Block Note Pre-Procedure: [...] stable throughout. Staff: Anesthesia Provider: Wilma Barraza APRN-[employer] - performed the procedure Additional Notes: Called to room for epidural placement. 5 cc local used for infiltration. Epidural placed without complications and pt getting comfortable. John Mckeon MD GENERAL ANESTHESIA O RDERABLES * (ABNORMAL) URINE MICROSCOPIC ONLY REFLEX TO CULTURE (05/31/2024 9:25 PM CDT) Reflex Status Culture to follow 05/31/2024 9:44 PM CDT [facility] RBC UA 6-10(A) 0 - 5 # /hpf 05/31/2024 9:44 PM CDT [facility] LABORATORY WBC UA >100(A) 0 - 5 # /hpf 05/31/2024 9:44 PM CDT [facility] Bacteria UA Trace(A) None Seen 05/31/2024 9:44 PM CDT [facility] Squamous Epithelial Cells 11-20(A) 0 - 5 /hpf 05/31/2024 9:44 PM CDT [facility] Mucus UA 2+ /LPF 05/31/2024 9:44 PM CDT [facility] Urine URINE SPECIMEN OBTAINED BY CLEAN CATCH PROCEDURE / Unknown Collection / Unknown 05/31/2024 9:25 PM CDT 05/31/2024 9:36 PM CDT Narrative [facility] - 05/31/2024 9:44 PM CDT Radha Nicolas MD LAB - URINALYSIS ORD ERABLES [facility] [address] [place] [address] * (ABNORMAL) URINALYSIS REFLEX MICROSCOPIC REFLEX CULTURE (05/31/2024 9:25 PM CDT) Only the most recent of2 resultswithin the time period is included. Color UA Demetra(A) Straw, Yellow 05/31/2024 9:42 PM CDT [facility] Clarity UA Cloudy(A) Clear 05/31/2024 9:42 PM CDT [facility] Glucose UA 1+(A) Negative 05/31/2024 9:42 PM CDT [facility] Bilirubin UA Negative Negative 05/31/2024 9:42 PM CDT [facility] Ketone UA 1+(A) Negative 05/31/2024 9:42 PM CDT [facility] Specific [place] UA 1.030 1.005 - 1.030 05/31/2024 9:42 PM CDT [facility] Blood UA Negative Negative 05/31/2024 9:42 PM CDT [facility] pH UA 5.0 5.0 - 8.0 pH 05/31/2024 9:42 PM CDT [facility] Protein UA 1+(A) Negative 05/31/2024 9:42 PM CDT [facility] Urobilinogen UA 2.0(A) Negative mg/dL 05/31/2024 9:42 PM CDT [facility] Nitrite UA Negative Negative 05/31/2024 9:42 PM CDT [facility] Leukocyte UA 3+(A) Negative 05/31/2024 9:42 PM CDT [facility] Urine Microscopy Urine microscopy to follow 05/31/2024 9:42 PM CDT [facility] Reflex Status Culture to follow 05/31/2024 9:42 PM CDT [facility] Urine URINE SPECIMEN OBTAINED BY CLEAN CATCH PROCEDURE / Unknown Collection / Unknown 05/31/2024 9:25 PM CDT 05/31/2024 9:36 PM CDT Narrative [facility] - 05/31/2024 9:42 PM CDT Radha Nicolas MD LAB - URINALYSIS ORD ERABLES Performing Organization Address City/[facility]/ZIP Co de Phone Number [facility] [address] [place] [address] * CULTURE URINE (05/31/2024 9:25 PM CDT) Only the most recent of5 resultswithin the time period is included. Culture Urine No growth (<100 CFU/mL) KONRAD 06/02/2024 7:[address] [facility] Urine URINE SPECIMEN OBTAINED BY CLEAN CATCH PROCEDURE / Unknown Collection / Unknown 05/31/2024 9:25 PM CDT 05/31/2024 9:36 PM CDT Radha Nicolas MD LAB - MICROBIOLOGY O RDERABLES [facility] [address] [place] [address], [facility] [phone] * SYPHILIS ANTIBODY CASCADING REFLEX (05/31/2024 4:18 PM CDT) Only the most recent of4 resultswithin the time period is included. Treponema pallidum Antibody Non Reactive Non Reactive 05/31/2024 5:15 PM CDT [facility] Comment: No Laboratory evidence of syphilis infection. Note: Circulating antibodies may be low or undetectable in early infection. If recent exposure is suspected, re-draw sample in 2-4 weeks and repeat testing. Blood BLOOD SPECIMEN / Unknown Venipuncture / Unknown 05/31/2024 4:18 PM CDT 05/31/2024 4:34 PM CDT Radha Nicolas MD LAB - SEROLOGY ORDER ROSEANNA Performing Organization Address [facility] Co de Phone Number [facility] [address] [place] [phone] * HYDROXYBUTYRATE BETA (05/31/2024 4:18 PM CDT) Only the most recent of6 resultswithin the time period is included. Beta-Hydroxybu tyrate <0.50 <0.50 mmol/L 05/31/2024 5:04 PM CDT [facility] Blood BLOOD SPECIMEN / Unknown Venipuncture / Unknown 05/31/2024 4:18 PM CDT 05/31/2024 4:33 PM CDT Narrative [facility] - 05/31/2024 5:04 PM CDT Results >1.5 mmol/L may be indicative of diabetic ketoacidosis. Use in conjunction with Serum Glucose levels. Radha Nicolas MD LAB - CHEMISTRY ORDE RABLES Performing Organization Address [facility] de Phone Number [facility] [address] [place] [address] * TYPE + SCREEN PANEL (05/31/2024 4:18 PM CDT) Only the most recent of4 resultswithin the time period is included. ABO Rh A POS 05/31/2024 5:10 PM CDT [facility] Comment:History checked. Antibody Screen NEG 5:10 PM CDT [facility] Blood Bank BLOOD SPECIMEN / Unknown Venipuncture / Unknown 05/31/2024 4:18 PM CDT 05/31/2024 4:33 PM CDT Radha Nicolas MD LAB - BLOOD BANK ORD ERABLES [facility] [address] [place] [address], [facility] [phone] * CBC W AUTO DIFFERENTIAL (05/31/2024 4:18 PM CDT) Only the most recent of5 resultswithin the time period is included. WBC 5.6 4.0 - 10.7 x10E9/L 05/31/2024 4:39 PM CDT [facility] RBC Count 4.55 3.90 - 5.20 x10E12/L 05/31/2024 4:39 PM CDT [facility] Hemoglobin 12.5 11.9 - 15.8 g/dL 05/31/2024 4:39 PM CDT [facility] Hematocrit 37.7 34.8 - 46.1 % 05/31/2024 4:39 PM CDT [facility] MCV 82.9 80.0 - 98.0 fL 05/31/2024 4:39 PM CDT [facility] MCH 27.5 26.7 - 33.6 pg 05/31/2024 4:39 PM CDT [facility] MCHC 33.2 31.7 - 36.3 g/dL 05/31/2024 4:39 PM CDT [facility] RDW-CV 11.8 11.3 - 14.8 % 05/31/2024 4:39 PM CDT [facility] Platelet Count 250 150 - 420 x10E9/L 05/31/2024 4:39 PM CDT [facility] MPV 10.9 7.8 - 11.4 fL 05/31/2024 4:39 PM CDT [facility] Neutrophil % 64.2 41.0 - 74.0 % 05/31/2024 4:39 PM CDT [facility] Lymphocyte % 26.7 17.0 - 47.0 % 05/31/2024 4:39 PM CDT [facility] Monocyte % 7.8 3.0 - 11.0 % 05/31/2024 4:39 PM CDT [facility] Eosinophil % 0.2 0.0 - 7.0 % 05/31/2024 4:39 PM CDT [facility] Basophil % 0.4 0.0 - 1.6 % 05/31/2024 4:39 PM CDT [facility] Immature Granulocytes % 0.7 0.0 - 1.0 % 05/31/2024 4:39 PM CDT [facility] Neutrophil Absolute 3.61 1.60 - 7.50 x10E9/L 05/31/2024 4:39 PM CDT [facility] Lymphocyte Absolute 1.50 1.00 - 4.40 x10E9/L 05/31/2024 4:39 PM CDT [facility] Monocyte Absolute 0.44 0.15 - 1.00 x10E9/L 05/31/2024 4:39 PM CDT [facility] Eosinophil Absolute 0.01 0.00 - 0.60 x10E9/L 05/31/2024 4:39 PM CDT [facility] Basophil Absolute 0.02 0.00 - 0.13 x10E9/L 05/31/2024 4:39 PM CDT [facility] Blood BLOOD SPECIMEN / Unknown Venipuncture / Unknown 05/31/2024 4:18 PM CDT 05/31/2024 4:33 PM CDT Radha Nicolas MD LAB - HEMATOLOGY ORD ERABLES Performing Organization Address City/[facility]/ZIP Co de Phone Number [facility] [address] [place], [place] [phone] * PHOSPHORUS BLOOD (05/31/2024 4:18 PM CDT) Only the most recent of6 resultswithin the time period is included. Phosphorus 2.8 2.3 - 4.7 mg/dL 05/31/2024 5:04 PM CDT [facility] Blood BLOOD SPECIMEN / Unknown Venipuncture / Unknown 05/31/2024 4:18 PM CDT 05/31/2024 4:33 PM CDT Radha Nicolas MD LAB - CHEMISTRY ORDKarina RAMIREZ [facility] [address] [place] [address] * MAGNESIUM BLOOD (05/31/2024 4:18 PM CDT) Only the most recent of6 resultswithin the time period is included. Magnesium 1.7 1.7 - 2.3 mg/dL 05/31/2024 5:04 PM CDT [facility] Blood BLOOD SPECIMEN / Unknown Venipuncture / Unknown 05/31/2024 4:18 PM CDT 05/31/2024 4:33 PM CDT Radha Nicolas MD LAB - CHEMISTRY [place] RAM[place] [facility] Organization Address City/State/ZIP Co de Phone Number [facility] [address] [place] [address] * BIOPHYSICAL PROFILE W NST (05/30/2024 2:06 PM CDT) Only the most recent of6 resultswithin the time period is included. Anatomical Region Laterality Modality Other 05/30/2024 2:06 PM CDT Narrative 05/30/2024 4:01 PM CDT [facility] PHONE: FAX: Pat. Name: GRACE ROSE. No: [id number] Study Date: 05/30/2024 2:06pm , Age: 09 2005, 18 Pregnancies: 2, Para 0010 Height: 60 in Weight: 109 lb LMP: 08/22/2023 GA by LMP: 40w2d GA by Base: 36w1d CLARISSA: 06/26/2024 GA Selected: 36w1d (From [facility]) CLARISSA: 06/26/2024 Referring MD: MD Bharath, [facility] Sports Trainer: Layr Garduno RDMS CPT4: 51537,04431 BMI: 21.29 Hist/Ind: Type 1 DM- Uncontrolled [...] <Electronic Signature> 05/30/2024 03:59pm Quirino Jhaveri MD [facility] ORDERABLES * (ABNORMAL) HEMOGLOBIN A1C (05/23/2024 2:49 PM CDT) Only the most recent of4 resultswithin the time period is included. Hemoglobin A1c 7.5(H) <5.7 % 05/23/2024 3:45 PM CDT [facility] Estimated Average Glucose 169 mg/dL 05/23/2024 3:45 PM CDT [facility] Blood BLOOD SPECIMEN / Unknown Venipuncture / Unknown 05/23/2024 2:49 PM CDT 05/23/2024 3:27 PM CDT [facility] - 05/23/2024 3:45 PM [...] Felton MD LAB - CHEMISTRY [place] RAMIREZ [facility] Organization Address City/State/ZIP Co de Phone Number [facility] [address] [place] [address] * LAB RESULTS ORDER (05/20/2024 3:01 AM [...] Probe Negative Negative 05/17/2024 8:[address] [facility] Other URINE / Unknown Collection / Unknown 05/16/2024 11:42 PM CDT 05/16/2024 11:[address] [facility] - 05/17/2024 8:07 PM CDT This test was developed and its performance characteristics determined by the [facility], [facility]. Urine specimens tested by the [facility] [place] have not been cleared or approved by [...] Gray MD LAB - MICROBIO LOGY ORDERABLES [facility] [address] [place] [address], [facility] [phone] * CHLAMYDIA + GC AMPLIFIED PROBE (05/16/2024 11:42 PM CDT) Only the most recent of2 resultswithin the time period is included. Chlamydia Amplified Probe Negative Negative 05/17/2024 8:[address] [facility] GC Amplified Probe Negative Negative 05/17/2024 8:[address] [facility] Other URINE / Unknown Collection / Unknown 05/16/2024 11:42 PM CDT 05/16/2024 11:[address] [facility] - 05/17/2024 8:07 PM CDT Results based on detection/no detection of ribosomal RNA by amplified method. Sidney Gray MD LAB - MICROBIO LOGY ORDERABLES [facility] [address] [place] [address], [facility] [phone] * (ABNORMAL) URINALYSIS REFLEX TO MICROSCOPIC NO [...] 05/16/2024 8:39 PM CDT [facility] Specific [place] UA 1.019 1.005 - 1.030 05/16/2024 8:39 [...] microscopy to follow 05/16/2024 8:39 PM CDT [facility] Urine URINE SPECIMEN OBTAINED BY CLEAN CATCH PROCEDURE / Unknown Collection / Unknown 05/16/2024 8:12 PM CDT 05/16/2024 8:28 PM CDT Narrative [facility] - 05/16/2024 8:39 PM CDT Sidney Gray MD LAB - URINALYS IS ORDERABLES Performing Organization Address City/[facility]/ZIP Co de Phone Number [facility] [address] [place], [place] [phone] * (ABNORMAL) URINE MICROSCOPIC ONLY (05/16/2024 8:12 PM CDT) RBC UA 0-2 0 - 5 # /hpf 05/16/2024 8:38 PM CDT [facility] WBC UA 21-50(A) 0 - 5 # /hpf 05/16/2024 8:38 PM CDT [facility] Hyaline Casts 0-2 0 - 2 /LPF 05/16/2024 8:38 PM CDT [facility] Bacteria UA Trace(A) None Seen 05/16/2024 8:38 PM CDT [facility] Squamous Epithelial Cells 11-20(A) 0 - 5 /hpf 05/16/2024 8:38 PM CDT [facility] Mucus UA 4+ /LPF 05/16/2024 8:38 PM CDT [facility] Urine URINE SPECIMEN OBTAINED BY CLEAN CATCH PROCEDURE / Unknown Collection / Unknown 05/16/2024 8:12 PM CDT 05/16/2024 8:28 PM CDT Narrative [facility] - 05/16/2024 8:38 PM CDT Sidney Gray MD LAB - URINALYS IS ORDERABLES [facility] [address] [place] [phone] * (ABNORMAL) CULTURE STREP B (05/16/2024 6:41 PM CDT) Culture Strep B Growth of Streptococcus agalactiae (Group B)(AA) KONRAD 05/20/2024 1:[address] [facility] Microbiology MISCELLANEOUS SAMPLES / Unknown Collection / Unknown 05/16/2024 6:41 PM CDT 05/16/2024 6:[address] [facility] - 05/20/2024 1:45 PM CDT Susceptibility testing of penicillin, other beta-lactam antibiotics, and vancomycin is not necessary for beta-hemolytic streptococci groups A,B,C and G because resistant strains have not been recognized. Sidney Gray MD LAB - MICROBIO LOGY ORDERABLES Performing Organization Address City/[facility]/ZIP Co de Phone Number [facility] [address] [place] [address], [facility] [phone] * HIV-1 HIV-2 ANTIBODY + HIV P24 AG PANEL (04/24/2024 12:27 PM CDT) Only the most recent of2 resultswithin the time period is included. HIV1/2 Ab + P24 Ag Non Reactive Non Reactive 04/24/2024 1:22 PM CDT [facility] Blood BLOOD SPECIMEN / Unknown Venipuncture / Unknown 04/24/2024 12:27 PM CDT 04/24/2024 12:40 PM CDT Narrative [facility] - 04/24/2024 1:22 PM CDT No Laboratory evidence of HIV infection. Sidney Gray MD LAB - CHEMISTR Y ORDERABLES Performing Organization Address City/[facility]/ZIP Co de Phone Number [facility] [address] [place] [address] * SONOGRAM - COMPLETE (03/29/2024 1:06 PM CDT) Only the most recent of5 resultswithin the time period is included. Anatomical Region Laterality Modality Other 03/29/2024 1:06 PM CDT Narrative 03/29/2024 2:12 PM CDT [facility] PHONE: FAX: Pat. Name: GRACE ROSE. No: [id number] Study Date: 03/29/2024 1:06pm , Age: 09 2005, 18 Pregnancies: 2, Para 0010 Height: 60 in Weight: 109 lb LMP: 08/22/2023 GA by LMP: 31w3d GA by Base: 27w2d CLARISSA: 06/26/2024 GA by US: 27w2d CLARISSA: 06/26/2024 GA Selected: 27w2d (From [facility]) CLARISSA: 06/26/2024 Referring MD: MD Bharath, [facility] Sports Trainer: Corine Jackson, RDAL, RDCS CPT4: 76420 BMI: 21.29 Hist/Ind: Low Risk NIPT-F Uncontrolled Type 1 DM Hypertension Tobacco use Follow up anatomy screen MEASUREMENTS & AGE GROWTH EVALUATION Measurement GA Range Srce %for GA Ratios ----- ---- ------- BPD 6.7 cm 26w6d ([id number]) Hadl BPD 26% FL/BPD 0.75 (0.71 - 0.87) HC 24.9 cm 27w0d (41x7g-70a8e) Hadl HC 16% FL/AC 0.21 (0.20 - 0.24) AC 23.8 cm 28w1d (02u7l-20k9i) Hadl AC 70% HC/AC 1.05 (1.00 - 1.18) FL 5.0 cm 27w0d (14x1e-68s8n) Hadl FL 27% CI 0.76 (0.70 - 0.86) HL 4.4 cm 26w3d (93d3o-10y0d) Carmelo HL 36% GA for sonogram 27w2d (40v2i-02p3q) Weight Estimate: based on (BPD,HC,AC,FL) Avg Weight: [...] <Electronic Signature> 03/29/2024 02:12pm Quirino Jhaveri MD [facility] ORDERABLES * EKG 12-LEAD (03/08/2024 4:44 PM CDT) Ventricular Rate 90 BPM [facility]USE Atrial Rate 90 BPM [facility] P-R Interval 120 ms [facility] QRS Duration ms 74 ms [facility] Q-T Interval ms 340 ms [facility] QTC Calculation (Bezet) 415 ms [facility] Calculated P [place] 22 degrees [facility] Calculated R [place] 34 degrees [facility] Calculated T [place] 6 degrees [facility] Interpretation EKG NORMAL SINUS RHYTHM LOW VOLTAGE QRS BORDERLINE ECG NO PREVIOUS ECGS AVAILABLE Confirmed by Jorge Diamond MD ([id number]) on 03/09/2024 7:45:54 AM HC MUSE 03/08/2024 4:44 PM CDT 03/09/2024 7:45 AM CDT Radha Nicolas MD ECG ORDERABLES [facility] MUSE * LACTIC ACID BLOOD (03/08/2024 4:21 PM CDT) Lactic Acid 1.2 <=2 mmol/L 03/08/2024 4:56 PM CDT [facility] Blood BLOOD SPECIMEN / Unknown Venipuncture / Unknown 03/08/2024 4:21 PM CDT 03/08/2024 4:29 PM CDT Jazmyn Oliver MD LAB - CHEMISTRY L[place] RAMIREZ [facility] [address] [place] [address] * ANEUPLOIDY SCREENING (12/01/2023) Trisomy 21 Low Risk Trisomy 18 Low Risk Trisomy 13 Low Risk Monosomy X Low Risk Triploidy/Neela shing Twin NIPT Low Risk Blood BLOOD SPECIMEN / Unknown 12/01/2023 Narrative Sakina Garza RN - 12/06/2023 LOW RISK Predicted Sex: Female Fraction: 4.7% Panorama - Caitlin Screen Hard copy results available in Media. Francine Najera APRN-[facility] - PRELIM[employer] PSYCHOLOGIST RY ORDERABLES * PROTEIN URINE TIMED QUANTITATIVE (11/24/2023 1:14 PM TIRE FINISHER) Volume 24 Hour Urine 1,000 mL 11/24/2023 3:11 PM TIRE FINISHER [facility] Collection Time Hours 24 hrs 11/24/2023 3:11 PM TIRE FINISHER [facility] Protein 24 Hour Urine 84 <300 mg/24hr 11/24/2023 3:11 PM TIRE FINISHER [facility] Protein Urine 8.4 <11.9 mg/dL 11/24/2023 3:11 PM TIRE FINISHER [facility] Urine TIMED URINE SPECIMEN / Unknown Timed Urine Volume Measurement / Unknown 11/24/2023 1:14 PM TIRE FINISHER 11/24/2023 2:51 PM TIRE FINISHER Eb Nye MD LAB - URINE CHEMISTR Y ORDERABLES Performing Organization Address City/[facility]/ZIP Co de Phone Number [facility] [address] [place] [phone] * TSH REFLEX FREE T4 (11/10/2023 2:55 PM TIRE FINISHER) TSH 0.810 0.350 - 4.940 uIU/mL 11/10/2023 3:56 PM TIRE FINISHER [facility] Blood BLOOD SPECIMEN / Unknown Venipuncture / Unknown 11/10/2023 2:55 PM TIRE FINISHER 11/10/2023 3:13 PM TIRE FINISHER Eb Nye MD LAB - CHEMISTRY ORDE RABLES Performing Organization Address City/[facility]/ZIP Co de Phone Number [facility] [address] [place] [phone] * RUBELLA ANTIBODY IGG (11/10/2023 2:55 PM TIRE FINISHER) Rubella Antibody 2.48 Immune >0.99 index 11/13/2023 4:08 AM TIRE FINISHER [facility] ([facility]) Comment: Non-immune <0.90 Equivocal 0.90 - 0.99 Immune >0.99 Blood BLOOD SPECIMEN / Unknown Venipuncture / Unknown 11/10/2023 2:55 PM TIRE FINISHER 11/10/2023 3:13 PM TIRE FINISHER Narrative [facility] ([facility]) - 11/13/2023 4:08 AM TIRE FINISHER Performed at: [facility] - [facility] [address] [place], [place] [id number] [employer] Patcher: Derek Ronquillo PhD, Phone: [phone] Eb Nye MD LAB - SEROLOGY ORDER ROSEANNA Performing Organization Address City/[facility]/ZIP Co de Phone Number [facility] ([facility]) [address] [place] [address] * PROTEIN CREATININE RATIO URINE RANDOM PNL (11/10/2023 2:55 PM TIRE FINISHER) Pathologist [facility] Protein Urine 7.9 <11.9 mg/dL 11/10/2023 3:40 PM TIRE FINISHER [facility] Creatinine Urine 81.93 mg/dL 11/10/2023 3:40 PM TIRE FINISHER [facility] Protein/Creatin ine Ratio Urine 0.10 11/10/2023 3:40 PM TIRE FINISHER [facility] Urine URINE SPECIMEN OBTAINED BY CLEAN CATCH PROCEDURE / Unknown Collection / Unknown 11/10/2023 2:55 PM TIRE FINISHER 11/10/2023 3:13 PM TIRE FINISHER Eb Nye MD LAB - URINE CHEMISTR Y ORDERABLES Performing Organization Address City/[facility]/ZIP Co de Phone Number [facility] [address] [place] [address] * HEPATITIS B SURFACE ANTIGEN W RFLX CONFIRMATION (11/10/2023 2:55 PM TIRE FINISHER) Pathologist [facility] HBsAg Non Reactive Non Reactive 11/10/2023 4:01 PM TIRE FINISHER [facility] Blood BLOOD SPECIMEN / Unknown Venipuncture / Unknown 11/10/2023 2:55 PM TIRE FINISHER 11/10/2023 3:13 PM TIRE FINISHER Eb Nye MD LAB - CHEMISTRY ORDE RABLES Performing Organization Address City/[facility]/ZIP Co de Phone Number [facility] [address] [place] [address] * HEPATITIS C ANTIBODY (11/10/2023 2:55 PM TIRE FINISHER) [facility] HCV Antibody Screen Non Reactive Non Reactive 11/10/2023 4:00 PM TIRE FINISHER [facility] Blood BLOOD SPECIMEN / Unknown Venipuncture / Unknown 11/10/2023 2:55 PM TIRE FINISHER 11/10/2023 3:13 PM TIRE FINISHER Narrative [facility] - 11/10/2023 4:00 PM TIRE FINISHER Non Reactive - Antibodies to Hepatitis C virus (HCV) were not detected, result does not exclude early acute HCV infection. Eb Nye MD LAB - CHEMISTRY [place] RAMIREZ Performing Organization Address City/[facility]/ZIP Co de Phone Number [facility] [address] [place] [phone] * FERRITIN (11/10/2023 2:55 PM TIRE FINISHER) [facility] Ferritin 58 5 - 204 ng/mL 11/10/2023 3:56 PM TIRE FINISHER [facility] Blood BLOOD SPECIMEN / Unknown Venipuncture / Unknown 11/10/2023 2:55 PM TIRE FINISHER 11/10/2023 3:13 PM TIRE FINISHER Eb Nye MD LAB - CHEMISTRY [place] RAMIREZ [facility] [address] [place] [id number]
--- OUTSIDE RECORDS SUMMARY | 2024-11-02 12:43 | XMS_ITS | Encounter Summary ---
Author Organization [facility] Address [address] [place] [address] Care Team Providers Care Signal Operator Technical Name Role Phone Unavailable Primary Care Provider Unavailabl e Reason for Visit * Reason Onset Date Comments MEDICATION REFILL 11/22/2023 Encounter Details Date Type Department Care Team (Late st Contact Info) Description 11/22/2023 Refill [facility] MATERNAL/ EVALUATION UNIT [address] [place] [address] Jazmyn Rivera MD [address] [place] [address] MEDICATION REFILL Social History Tobacco Use Types [...] care, and heating? Not very hard 11/10/2023 [facility] - Occupational Stress [...] place to sleep or slept in a jail (including now)? No 11/10/2023 Wayne Depression Scale Answer Date Recorded Wayne Depression Scale Total 7 11/10/2023 The thought [...]
--- OUTSIDE RECORDS SUMMARY | 2024-11-02 12:43 | XMS_ITS | Clinical Summary ---
Author Organization [facility] Address [address] [place] [id number] Care Team Providers Care Publications Production Supervisor Name Role Phone Unknown, Notinfile Primary Care [...] Pump) misc Active blood-glucose meter,continuous (Dexcom G6 Vending Mechanic) misc Activ e blood-glucose sensor (Dexcom G6 Sensor) device Activ e blood-glucose transmitter (Dexcom G6 Transmitter) device Active vit,njvc42-qfeb-wg lic (PRENATABS RX) tablet tablet Take by [...] Department Care Team Description 10/18/2024 5:26 PM DISTANCE EDUCATION TEACHER - 10/18/2024 5:56 PM [facility] Emergency [facility] Emergency Department [address] [place] [address] Discharge Disposition: Left without being seen 10/08/2024 3:56 PM DISTANCE EDUCATION TEACHER - 10/08/2024 6:08 PM DISTANCE EDUCATION TEACHER Emergency [facility] Emergency Department [address] [place] [address] Viral illness (Primary Dx) Discharge Disposition: Discharge to home or self care 10/06/2024 7:19 AM DISTANCE EDUCATION TEACHER - 10/06/2024 8:27 AM DISTANCE EDUCATION TEACHER Emergency [facility] Emergency Department [address] [place] [address] Clifford Gandara MD Viral syndrome (Primary Dx) [...] Comments Blood Pressure 123/70 10/18/2024 4:10 PM DISTANCE EDUCATION TEACHER Pulse 98 10/18/2024 4:10 PM DISTANCE EDUCATION TEACHER Temperature 36.6 C (97.9 F) 10/18/2024 4:10 PM DISTANCE EDUCATION TEACHER Respiratory Rate 14 10/18/2024 4:10 PM DISTANCE EDUCATION TEACHER Oxygen Saturation 100% 10/18/2024 4:10 PM DISTANCE EDUCATION TEACHER Inhaled Oxygen Concentration - - Weight 41.7 kg (92 lb) 10/18/2024 4:10 PM DISTANCE EDUCATION TEACHER Height 152.4 cm (5') 10/18/2024 4:10 PM DISTANCE EDUCATION TEACHER Body Mass Index 17.97 10/18/2024 4:10 PM DISTANCE EDUCATION TEACHER Plan of Treatment Health Maintenance Due Date [...] CHEST 1 VIEW ED 10/06/2024 7:49 AM DISTANCE EDUCATION TEACHER INFLUENZA A/B, RSV, AND COVID-19 PCR Routine 10/06/2024 7:19 AM DISTANCE EDUCATION TEACHER EGFR STAT 12/06/2023 12:36 PM CDT HEMOGLOBIN A1C Routine 04/23/2023 4:07 PM CDT TSH STAT 04/23/2023 4:07 PM CDT from Last 3 Months or Most Recently Relevant to Health Maintenance Results * XR Chest 1 View (10/06/2024 7:49 AM DISTANCE EDUCATION TEACHER) Anatomical Region Laterality Modality Body, Chest N/A Computed Radiogr aphy 10/06/2024 7:52 AM DISTANCE EDUCATION TEACHER Narrative 10/06/2024 7:54 AM DISTANCE EDUCATION TEACHER EXAM DESCRIPTION: XR CHEST 1 VIEW REASON [...] Raymundo Lauren M.D. KN: BUBBA Report ID: [id number] Reading Location: [id number] Procedure Note Raymundo Lauren MD - 10/06/2024 [...] Raymundo Lauren M.D. KN: BUBBA Report ID: [id number] Reading Location: [place] [address] Clifford Gandara MD IMG XR PROCEDURES F inal Result * Influenza A/B, RSV, and COVID-19 PCR Nasopharyngeal (10/06/2024 7:19 AM DISTANCE EDUCATION TEACHER) COVID-19 RNA Negative Negative Influenza A RNA Negative Negative [facility] ([place]) Influenza B RNA Negative Negative [facility] ([place]) RSV RNA Negative Negative [facility] ([place]) Comment: Interpretive data: Testing performed by [facility]. This test is performed using the [employer] Xpert Xpress CoV-2/Flu/RSV plus assay. This is a multiplex, real- time reverse transcriptase PCR assay intended for the qualitative detection of nucleic acid from SARS-CoV-2, influenza A, influenza B, and respiratory syncytial virus. This assay has been cleared by the [place] Food and Drug administration. The performance characteristics have been verified by the [facility]. Results must be considered in the clinical context, and a negative result does not rule out infection. Interpretive Data last revised 2023 Nasopharyngeal 10/06/2024 7: 19 AM DISTANCE EDUCATION TEACHER 10/06/2024 7:24 AM DISTANCE EDUCATION TEACHER Narrative [facility] ([place]) - 10/06/2024 8:14 AM DISTANCE EDUCATION TEACHER Is the Patient experiencing symptoms consistent with COVID?->Yes Clifford Gandara MD LAB MICROBIOLOGY - GENERAL ORDERABLES Final Result [facility] [address] Department [place] [address] * eGFR (12/06/2023 12:36 PM CDT) eGFR [...] BLOOD ORDERABLE S Final Result [facility] ([place]) [address] [facility] [place] [address] * TSH (04/23/2023 4:07 PM CDT) Thyroid Stimulating Hormone 1.75 0.30 - 4.20 mcIUnit/mL [facility] ([place]) Blood 04/23/2023 4:07 PM CDT 04/23/2023 4:11 PM CDT us Naveen Burrell MD LAB BLOOD ORDERABLES Final Result [facility] ([place]) [address] [facility] [place] [address] * (ABNORMAL) Hemoglobin A1c (04/23/2023 4:07 PM CDT) Hgb A1C 14.7(H) 4.0 - 5.6 % [facility] ([place]) Estimated Average Glucose 375 mg/dL [facility] ([place]) Comment: The ADA recommends reporting an estimated Average Glucose (eAG) with all Hemoglobin A1c results using the equation derived from a study of 507 normal and diabetic adults. Minority populations were underrepresented and children were not included. (Diabetes Care 31:1483-7642, 2008). The eAG is not equivalent to a fasting glucose. Blood 04/23/2023 4:07 PM CDT 04/23/2023 4:11 PM CDT Naveen Burrell MD LAB BLOOD ORDERABLES Final Result J[facility] ([place]) [address] [facility] Department [place] [address] from Last 3 Months or Most Recently Relevant to Health Maintenance Insurance [facility] Care Teams Publications Production Supervisor Relationship Specialty Start Date End Date Unknown, Notinfile PCP - General 01/29/24
--- OUTSIDE RECORDS SUMMARY | 2024-11-02 12:43 | XMS_ITS | Referral Summary ---
Author Organization [facility] Address [address] [place] [address] Care Team Providers Care Urogynecology Physician Name Role Phone Unknown, Notinfile Primary Care Provider Unavail able Encounters Date Type Department Care Team Description 10/18/2024 5:26 PM SYSTEMS AUDITOR - 10/18/2024 5:56 PM [facility] Emergency [facility] Emergency Department [address] [place] [address] Discharge Disposition: Left without being seen 10/08/2024 3:56 PM SYSTEMS AUDITOR - 10/08/2024 6:08 PM [facility] Emergency [facility] Emergency Department [address] [place] [address] Viral illness (Primary Dx) Discharge Disposition: Discharge to home or self care 10/06/2024 7:19 AM SYSTEMS AUDITOR - 10/06/2024 8:27 AM [facility] Emergency [facility] Emergency Department [address] [place] [address] Clifofrd Gandara MD Viral syndrome (Primary Dx) Discharge [...] subcutaneous insulin pump (t:slim X2 Insulin Pump) [facility] Active blood-glucose meter,continuous (Dexcom G6 Rug Dyer Helper) [facility] Activ e blood-glucose sensor (Dexcom G6 Sensor) device Activ e blood-glucose transmitter (Dexcom G6 Transmitter) device Active vit,auwr46-uwaa-ca lic (PRENATABS RX) tablet tablet Take by [...] 12/29/19 24 Active OneTouch Verio Flex meter [facility] as directed 01/04/20 24 Active docusate sodium (COLACE) 100 mg capsule Take 1 capsule (100 mg total) by mouth 2 (two) times a day 12/03/19 24 Active LANTUS 100 unit/mL (3 mL) pen for injection 03/01/20 24 Active OneTouch Delica Plus Lancet 33 gauge [facility] daily 12/29/19 24 Active [...] Comments Blood Pressure 123/70 10/18/2024 4:10 PM SYSTEMS AUDITOR Pulse 98 10/18/2024 4:10 PM SYSTEMS AUDITOR Temperature 36.6 C (97.9 F) 10/18/2024 4:10 PM SYSTEMS AUDITOR Respiratory Rate 14 10/18/2024 4:10 PM SYSTEMS AUDITOR Oxygen Saturation 100% 10/18/2024 4:10 PM SYSTEMS AUDITOR Inhaled Oxygen Concentration - - Weight 41.7 kg (92 lb) 10/18/2024 4:10 PM SYSTEMS AUDITOR Height 152.4 cm (5') 10/18/2024 4:10 PM SYSTEMS AUDITOR Body Mass Index 17.97 10/18/2024 4:10 PM SYSTEMS AUDITOR Plan of Treatment Not on file Procedures Procedure Name Priority Date/Time Associated Diagnosis Comments XR CHEST 1 VIEW ED 10/06/2024 7:49 AM SYSTEMS AUDITOR INFLUENZA A/B, RSV, AND COVID-19 PCR Routine 10/06/2024 7:19 AM SYSTEMS AUDITOR EGFR STAT 12/06/2023 12:36 PM CDT HEMOGLOBIN A1C Routine 04/23/2023 4:07 PM CDT TSH STAT 04/23/2023 4:07 PM CDT from Last 3 Months or Most Recently Relevant to Health Maintenance Results * XR Chest 1 View (10/06/2024 7:49 AM SYSTEMS AUDITOR) Anatomical Region Laterality Modality Body, Chest N/A Computed Radiogr aphy 10/06/2024 7:52 AM SYSTEMS AUDITOR Narrative 10/06/2024 7:54 AM SYSTEMS AUDITOR EXAM DESCRIPTION: XR CHEST 1 VIEW REASON [...] Raymundo Lauren M.D. KN: BUBBA Report ID: [id number] Reading Location: [id number] Procedure Note Raymundo Lauren MD - 10/06/2024 [...] Raymundo Lauren M.D. KN: BUBBA Report ID: [id number] Reading Location: [place] [address] Clifford Gandara MD IMG XR PROCEDURES F inal Result * Influenza A/B, RSV, and COVID-19 PCR Nasopharyngeal (10/06/2024 7:19 AM SYSTEMS AUDITOR) COVID-19 RNA Negative Negative Influenza A RNA Negative Negative [facility] ([place]) Influenza B RNA Negative Negative [facility] ([place]) RSV RNA Negative Negative [facility] ([place]) Comment: Interpretive data: Testing performed by [facility]. This test is performed using the [employer] Xpert Xpress CoV-2/Flu/RSV plus assay. This is a multiplex, real- time reverse transcriptase PCR assay intended for the qualitative detection of nucleic acid from SARS-CoV-2, influenza A, influenza B, and respiratory syncytial virus. This assay has been cleared by the [place] Food and Drug administration. The performance characteristics have been verified by the [facility]. Results must be considered in the clinical context, and a negative result does not rule out infection. Interpretive Data last revised 2023 Nasopharyngeal 10/06/2024 7: 19 AM SYSTEMS AUDITOR 10/06/2024 7:24 AM SYSTEMS AUDITOR Narrative [facility] ([place]) - 10/06/2024 8:14 AM SYSTEMS AUDITOR Is the Patient experiencing symptoms consistent with COVID?->Yes Clifford Gandara MD LAB MICROBIOLOGY - GENERAL ORDERABLES Final Result Performing Organization Address City/[facility] Co de Phone Number JAN [facility] ([place]) 1 [facility] [place] [address] * eGFR (12/06/2023 12:36 PM CDT) eGFR [...] ORDERABLE S Final Result Performing Organization Address [facility] Co de Phone Number [facility]AN [facility] ([place]) 1 [facility] [place] [address] * TSH (04/23/2023 4:07 PM CDT) Thyroid Stimulating Hormone 1.75 0.30 - 4.20 mcIUnit/mL [facility] ([place]) Blood 04/23/2023 4:07 PM CDT 04/23/2023 4:11 PM CDT us Naveen Burrell MD LAB BLOOD ORDERABLES Final Result Performing Organization Address [facility] Co de Phone Number [facility] ([place]) 1 [facility] [place] [address] * (ABNORMAL) Hemoglobin A1c (04/23/2023 4:07 PM CDT) Hgb A1C 14.7(H) 4.0 - 5.6 % [facility] ([place]) Estimated Average Glucose 375 mg/dL [facility] ([place]) Comment: The ADA recommends reporting an estimated Average Glucose (eAG) with all Hemoglobin A1c results using the equation derived from a study of 507 normal and diabetic adults. Minority populations were underrepresented and children were not included. (Diabetes Care 31:1328-1716, 2008). The eAG is not equivalent to a fasting glucose. Blood 04/23/2023 4:07 PM CDT 04/23/2023 4:11 PM CDT Naveen Burrell MD LAB BLOOD ORDERABLES Final Result Performing Organization Address [facility] Co de Phone Number [facility] ([place]) [address] [place] [address] from Last 3 Months or Most Recently Relevant to Health Maintenance [place] [address] [place] [address] Care Teams Urogynecology Physician Relationship Specialty Start Date End Date Unknown, Notinfile PCP - General 01/29/24
--- OUTSIDE RECORDS SUMMARY | 2024-11-02 12:43 | XMS_ITS | Clinical Summary ---
Author Organization [facility] Fjuul Address [address] [place] [address] Care Team Providers Care Limnologist Name Role Phone Unavailable Primary Care Provider Unavailabl e Source Comments [facility],non-owned Affiliates and Associated Physician Practices is amultiple site organization consisting of ambulatory clinics and hospital sitesin [place] and [place]. This disclosure is being madepursuant to the Care Everywhere program and may not contain all information available regarding this patient. Last updated 18.[facility] Allergies Active Allergy Reactions Criticality Noted Date [...] diabetes mellitus affecting in second trimester, antepartum ([facility]) Use 1 Each as directed 1 kit 12/29/2023 Active blood glucose (OneTouch Verio) test stripIndications:T ype 1 diabetes mellitus affecting in second trimester, antepartum ([facility]) Please supply strips to match meter to calibrate dexcom 100 strip 5 12/29/2023 Active Lancets (ONETOUCH DELICA PLUS 33G EXTRA FINE LANCET)Indications :Type 1 diabetes mellitus affecting in second trimester, antepartum ([facility]) Please supply lancets to match lancing device [...] 03/01/2024 Active Insulin Pen Needle (TechLite Pen [place]) 32G X 4 MM MISCIndications:Ty pe 1 diabetes mellitus affecting in second trimester, antepartum ([facility]) Use 1 Each 2 times daily 100 Each 5 03/01/2024 Active Nirmatrelvir&Riton avir 300/100 20 x 150 MG & 10 x 100MG Oral Tablet Therapy Pack (Paxlovid)Indicati ons:COVID-19 affecting in second trimester ([facility]) Take two 150mg tablets (300mg) of nirmatrelvir [...] migh t be different from the original. [employer] form completed. Diapers given. 04/05/2024, 05/02/24, 08/24/2024 *PLEASE NOTE - WISH RESEARCH STUDY PATIENT* This patient is enrolled in Drs. Guerrero/Dr. Quinonez research study investigating differences in genetic make-up between placentas exposed to opioid use disorder and controls. (IRB#[id number]). Please collect: Placenta Biopsy after delivery of placenta Supplies (scalpel and formalin container) are located in basket above the research fridge on L&D (in soiled holding room #5113 next to bathroom) Take biopsy of placenta (~[id number] full thickness near cord insertion) and place in formalin container Place patient sticker in bag with formalin. Place in back in basket in room air above research fridge (in soiled holding room #5113 next to bathroom) Text Dr. Guerrero MINE at [phone] that specimen collected. Problem Noted Date Diagnosed [...] exposed to opioid use disorder and controls. (IRB#[id number]). Please collect: Placenta Biopsy after delivery of placenta Supplies (scalpel and formalin container) are located in basket above the research fridge on L&D (in soiled holding room #5113 next to bathroom) Take biopsy of placenta (~6m0sayf full thickness near cord insertion) and place in formalin container Place patient sticker in bag with formalin. Place in back in basket in room air above research fridge (in soiled holding room #5113 next to bathroom) Text Dr. Guerrero MINE at [phone] that specimen collected. contractions 05/16/2024 Supervision of high risk in third trim lyndsay 04/04/2024 Overview (04/05/2024): Primary OB: [facility] - PNL: A pos, Antibody neg, HIV/Hep [...] feet. Previously recommended regular foot examinations - Digital Artist is Dr. Marquez in [place] - Baseline PIH labs: 42/ 344/ 0.54/ [...] Department Care Team Description 08/24/2024 9:08 AM [facility] - 08/24/2024 11:59 PM [facility] Hospital Encounter [facility] MATERNAL/ EVALUATION UNIT [address] [place] [address] Juan Pablo Belcher MD Polcaro, Joseph, DO Discharge Disposition: Home or Self Care 08/24/2024 9:08 AM [facility] - 08/24/2024 11:59 PM [facility] Hospital Encounter [facility] MATERNAL/ EVALUATION UNIT [address] [place] [address] Kishore Small DO Discharge Disposition: Home or Self Care 08/24/2024 Travel 08/15/2024 Telephone [facility] MATERNAL/ EVALUATION UNIT [facility] [place] [address] Sakina Garza RN MEDICATION REFILL 08/15/2024 Telephone [facility] MATERNAL/ EVALUATION UNIT [facility] [place] [address]. [address] [place] [address] Linda Lopez Medication Request 08/14/2024 Refill [facility] MATERNAL/ EVALUATION UNIT [address] [place] [address]. [address] [place] [address] Sidney Gray MD Refill Request 08/14/2024 Refill [facility] MATERNAL/ EVALUATION UNIT [address] [place] [address]. [address] [place] [address] Quirino Jhaveri MD Refill Request from Last [...] and heating? Not hard at all 05/31/2024 [facility] [place] of Occupat ional Health - Occupational Stress [...] in a detention (including now)? No 05/31/2024 [place] Depression Scale Answer Date Recorded [place] Depression Scale Total 3 06/03/2024 The thought of harming myself has occurred to me . Never 06/03/2024 Sex and Gender Information Value Date Recorded Sex Assigned at Not on file Gender Identity Not on file Sexual Orientation Not on file Last Filed Vital Signs Vital Sign Reading Time Taken Comments Blood Pressure 107/59 08/24/2024 9:21 AM [facility] Pulse 95 08/24/2024 9:21 AM [facility] Temperature 36.7 C (98 F) 06/30/2024 9:00 PM CDT Respiratory Rate 20 06/30/2024 9:00 PM CDT Oxygen Saturation 99% 06/30/2024 9:00 PM CDT Inhaled Oxygen Concentration - - Weight 44 kg (97 lb) 08/24/2024 9:21 AM [facility] Height 149.9 cm (4' 11 ) 05/31/2024 [...] this topic MENINGOCOCCAL VACCINE Aged Out No cole diana eligible based on patient's age to complete this topic Procedures Procedure Name Priority Date/Time Associated Diagnosis Comments URINALYSIS - POCT (IP) BEAKER INTERFACE Routine 08/24/2024 10:11 AM [facility] HCG URINE QUALITATIVE - POCT (IP) INTERFACED Routine 08/24/2024 9:31 AM [facility] GLUCOSE - POINT OF CARE Routine 08/24/2024 9:21 AM [facility] COMPREHENSIVE METABOLIC PANEL Routine 06/03/2024 9:47 AM CDT HEMOGLOBIN A1C Routine 05/23/2024 2:49 PM CDT Type 1 diabetes mellitus during in third trimester (HCC) CHLAMYDIA + GC AMPLIFIED PROBE Routine 05/16/2024 11:42 PM CDT HIV-1 HIV-2 ANTIBODY + HIV P24 AG PANEL Routine 04/24/2024 12:27 PM CDT Supervision of high risk in third trimester (HCC) HEPATITIS C ANTIBODY Routine 11/10/2023 2:55 PM [facility] Supervision of high risk , antepartum (HCC) from Last 3 Months or Most Recently Relevant to Health Maintenance Results * (ABNORMAL) URINALYSIS - POCT (IP) BEAKER INTERFACE (08/24/2024 10:11 AM [facility]) Color UA POCT Dark Yellow Straw, Yellow, Dark Yellow, Light Yellow 08/24/2024 10:14 AM [facility] Clarity UA POCT Clear Clear 10:[address] [facility] Specific Hanna UA POCT >=1.030 1.005 - 1.030 08/24/2024 10:[address] [facility] pH UA POCT 5.5 5.0 - 8.0 pH 08/24/2024 10:[address] [facility] Protein UA POCT Trace(A) Negative 10:[address] [facility] Blood UA POCT 3+(A) Negative 08/24/2024 10:[address] [facility] Leukocyte UA POCT Negative Negative 08/24/2024 10:[address] [facility] Nitrite UA POCT Negative Negative 10:[address] [facility] Glucose UA POCT 3+(A) Negative 4 10:[address] [facility] Ketone UA POCT 1+(A) Negative 08/24/2024 10:[address] [facility] Bilirubin UA POCT Negative Negative 08/24/2024 10:[address] [facility] Urobilinogen UA POCT 0.2 0.1 - 1.0 EU/dL 08/24/2024 10:[address] [facility] Urine URINE / Unknown 08/24/2024 1 0:11 AM [facility] 08/24/2024 10:14 AM [facility] Kishore Small DO LAB - POINT OF CARE ORDERABLES [facility] [address] [place], [place] [id number] * HCG URINE QUALITATIVE - POCT (IP) INTERFACED (08/24/2024 9:31 AM [facility]) HCG Qual Urine Negative Negative 08/24/2024 9:38 AM [facility] Urine URINE / Unknown 08/24/2024 9 :31 AM [facility] 08/24/2024 9:38 AM [facility] Kishore Small LAB - POINT OF CARE ORDERABLES [facility] [address] [place] [phone] * (ABNORMAL) GLUCOSE - POINT OF CARE (08/24/2024 9:21 AM [facility]) Pathologist [facility] Glucose WB/POC 305(H) 70 - 99 mg/dL 08/24/2024 9:30 AM [facility] Specimen Type Cap Fingerstick 2023 9:30 AM [facility] Blood BLOOD SPECIMEN / Unknown 08/24/2024 9:21 AM [facility] 08/24/2024 9:30 AM [facility] Kishore HermanHealthy [employer] LAB - POINT OF CARE ORDERABLES Performing Organization Address City/[facility]/ZIP Co de Phone Number [facility] [address] [place] [phone] * (ABNORMAL) COMPREHENSIVE METABOLIC PANEL (06/03/2024 9:47 AM CDT) Pathologist [facility] Glucose 124(H) 70 - 105 mg/dL 06/03/2024 10:14 AM CDT [facility] Sodium 137 136 - 145 mmol/L 06/03/2024 10:14 AM CDT [facility] Potassium 3.4(L) 3.5 - 5.1 mmol/L 06/03/2024 10:14 AM CDT [facility] Chloride 108(H) 98 - 107 mmol/L 06/03/2024 10:14 AM CDT [facility] CO2 21(L) 22 - 29 mmol/L 06/03/2024 10:14 AM CDT [facility] Calcium 7.7(L) 8.4 - 10.4 mg/dL 06/03/2024 10:14 AM T [facility] Anion Gap 8 6 - 16 mmol/L 06/03/2024 10:14 AM CDT [facility] BUN 14 5.3 - 18.7 mg/dL 06/03/2024 10:14 AM CDT [facility] Creatinine 0.70 0.57 - 1.11 mg/dL 06/03/2024 10:14 AM T [facility] Alkaline Phosphatase 66 40 - 150 U/L 06/03/2024 10:14 AM CDT [facility] ALT <6 0 - 55 U/L 06/03/2024 10:14 AM T [facility] AST 14 5 - 34 U/L 06/03/2024 10:14 AM [facility] Protein Total 4.3(L) 6.4 - 8.3 gm/dL 06/03/2024 10:14 AM T [facility] Albumin 1.8(L) 3.4 - 5.0 gm/dL 06/03/2024 10:14 AM [facility] Bilirubin Total 0.4 0.2 - 1.2 mg/dL 06/03/2024 10:14 AM [facility] eGFR by CKD-EPI >90 >=90 mL/min/1.7 3 m2 06/03/2024 10:14 AM [facility] Blood BLOOD SPECIMEN / Unknown Lab Venipuncture / Unknown 06/03/2024 9:47 AM CDT 06/03/2024 9:54 AM CDT Radha Nicolas MD LAB - CHEMISTRY [facility] Organization Address City/State/[facility] Co de Phone Number [facility] [address] [place] [address] * (ABNORMAL) HEMOGLOBIN A1C (05/23/2024 2:49 PM CDT) Hemoglobin A1c 7.5(H) <5.7 % 05/23/2024 3:45 PM CDT [facility] Estimated Average Glucose 169 mg/dL 05/23/2024 3:45 PM CDT [facility] Blood BLOOD SPECIMEN / Unknown Venipuncture / Unknown 05/23/2024 2:49 PM CDT 05/23/2024 3:27 PM CDT Narrative [facility] - 05/23/2024 3:45 PM CDT HbA1c [...] - CHEMISTRY [place]IREZ Performing Organization Address City/State/[facility] de Phone Number [facility] [address] [place] [address] * CHLAMYDIA + GC AMPLIFIED PROBE (05/16/2024 11:42 PM CDT) Pathologist [facility] Chlamydia Amplified Probe Negative Negative 05/17/2024 8:07 PM CDT [facility] GC Amplified Probe Negative Negative 05/17/2024 8:07 PM CDT [facility] Other URINE / Unknown Collection / Unknown 05/16/2024 11:42 PM CDT 05/16/2024 11:56 PM CDT Narrative [facility] - 05/17/2024 8:07 PM CDT Results based on detection/no detection of ribosomal RNA by amplified method. Sidney Gray MD LAB - MICROBIO LOGY ORDERABLES [facility] [address] [place] [address], [facility] [phone] * HIV-1 HIV-2 ANTIBODY + HIV P24 AG PANEL (04/24/2024 12:27 PM CDT) HIV1/2 Ab + P24 Ag Non Reactive Non Reactive 04/24/2024 1:22 PM CDT [facility] Blood BLOOD SPECIMEN / Unknown Venipuncture / Unknown 04/24/2024 12:27 PM CDT 04/24/2024 12:40 PM CDT Narrative [facility] - 04/24/2024 1:22 PM CDT No Laboratory evidence of HIV infection. Sidney Gray MD LAB - CHEMISTR Y ORDERABLES Performing Organization Address City/[facility] Co de Phone Number [facility] [address] [place] [address] * HEPATITIS C ANTIBODY (11/10/2023 2:55 PM [facility]) HCV Antibody Screen Non Reactive Non Reactive 11/10/2023 4:00 PM [facility] Blood BLOOD SPECIMEN / Unknown Venipuncture / Unknown 11/10/2023 2:55 PM [facility] 11/10/2023 3:13 PM [facility] Narrative [facility] - 11/10/2023 4:00 PM [facility] Non Reactive - Antibodies to Hepatitis C virus (HCV) were not detected, result does not exclude early acute HCV infection. Eb Nye MD LAB - CHEMISTRY [place] RAMIRE[place] [facility] [address] [place] [address] from Last 3 Months or [...]
== END 2024-11-02 12:46 | disposition left against medical advice (07) ==
PROVIDERS: PCP Nurse Practitioner Adult Health
DX: Z48.814 Encounter for surgical aftercare following surgery on the teeth or oral cavity (principal)
CPT/HCPCS: 99199